=== PATIENT | female | born 1935 | race African-American/Black ===

== ENCOUNTER 2018-04-05 18:29 | Inpatient (IN) | payer OTHER, BC ==
--- NOTE | 2018-04-05 18:46 | PDOC ---
Rapid Medical Evaluation Medical Evaluation: I have performed a brief in-person evaluation of this patient. The patient presents with a chief complaint of: Hx of HTN; c/o chest congestion , intermittent low grade fever, cough since before Thanksgiving, but states symptoms not getting better. Patient had CT chest done around 1 week ago, but states did not get notified of results. States lost 15 pounds over around 1 month (from 155 to 140) Pertinent physical exam findings: In NAD, lungs CTA B/L I have ordered the following: Labs, CXR, EKG The patient will proceed to the ED for further evaluation. 04/05/18 18:41
--- NOTE | 2018-04-05 19:14 | PDOC ---
History of Present Illness - General Chief Complaint: Shortness of Breath Stated Complaint: PCP SENT/CHEST PAIN Time Seen by Provider: 04/05/18 19:07 - History of Present Illness Initial Comments: 04/05/18 19:46 The patient is an 82 year old female with a history of HTN who presents for evaluation of shortness of breath and cough. The patient reports a 1 month history of worsening shortness of breath with an associated non-productive cough. She states that she has been having a low grade fever and intermittent night sweats as well as a 15 pound weight loss. The patient had a recent chest ct at an OSH 1 week ago, but never received the results. She was being evaluated by her fluid jet cutter operator Dr. Vaughan who sent the patient in for admission and further work up given her persistent symptoms. She otherwise denies chills , chest pain, nausea, vomiting, abdominal pain, or changes with urination or bowel movements. Past History - Past Medical History Allergies/Adverse Reactions: Allergies Allergy/AdvReac Type Severity Reaction Status Date / Time Penicillins Allergy Verified 04/05/18 18:47 COPD: No HTN: Yes - Suicide/Smoking/Psychosocial Hx Smoking History: Never smoked Information on smoking cessation initiated: No Hx Alcohol Use: Yes (occasional) Drug/Substance Use Hx: No Review of Systems - Review of Systems Comments:: 04/05/18 20:41 Constitutional: Fever. Night sweats. No chills, fatigue, malaise HEENT: No Rhinorrhea, nasal congestion, visual changes Cardiovascular: No chest pain, syncope, palpitations, lightheadedness Respiratory: Cough, SOB. No Hemoptysis, Gastrointestinal: No Abdominal pain, Nausea, Vomiting, Constipation, Diarrhea, Melena Genitourinary: No Dysuria, Frequency, Urgency, Hesitancy, Hematuria, Flank pain Musculoskeletal: No Myalgia, arthralgia Skin: No rashes, itching, bruising, pallor Neurologic: No Headache, Dizziness, Numbness, Weakness, or Tingling Psychiatric: No Hallucinations. No SI or HI *Physical Exam - Vital Signs Last Vital Signs Temp Pulse Resp BP Pulse Ox 99.2 F 94 H 19 121/69 96 04/05/18 18:44 04/05/18 18:44 04/05/18 18:44 04/05/18 18:44 04/05/18 18:44 - Physical Exam Comments: 04/05/18 20:45 General Appearance: Nourished. No Apparent Distress HEENT: No Pharyngeal Erythema, Tonsillar Exudate, Tonsillar Erythema Neck: No Cervical Lymphadenopathy Respiratory/Chest: Lungs Clear, Mild scant wheezing and rhonchi auscultated on exam. No Crackles, Rales, Cardiovascular: Regular Rhythm, Regular Rate. No Murmur, Gallops, Rubs Gastrointestinal/Abdominal: Normal Bowel Sounds, Soft. No Guarding, Rebound, Tenderness Musculoskeletal: No CVA Tenderness Extremity: Normal Capillary Refill Integumentary: Normal Color, Dry, Warm Neurologic: Fully Oriented, Alert, Normal Mood/Affect, Normal Response, Moderate Sedation - Procedure Monitoring Vital Signs: Procedure Monitoring Vital Signs Temperature 99.2 F 04/05/18 18:44 Pulse Rate 94 H 04/05/18 18:44 Respiratory Rate 19 04/05/18 18:44 Blood Pressure 121/69 04/05/18 18:44 O2 Sat by Pulse Oximetry (%) 96 04/05/18 18:44 Heart Score/ECG Review #1 ECG reviewed & interpreted by me at: 20:46 General ECG Interpretation: Sinus Rhythm, Normal Rate, Normal Intervals, No acute ischemic changes ED Treatment Course - LABORATORY CBC & Chemistry Diagram: 04/05/18 19:15 04/05/18 19:15 Medical Decision Making - Medical Decision Making 04/05/18 20:46 The patient is an 82 year old female with a history of HTN who presents for evaluation of shortness of breath and cough. Differential includes but is not limited to: COPD, CHF, Pneumonia, Neoplasm, Pulmonary Fibrosis, Infectious, Metabolic Derangement. Given the patient's history and physical exam, we will obtain a cbc, cmp, troponin, bnp, ekg, chest plain film, chest CT to evaluate further. We will continue to monitor and reassess while here in the ED. 04/06/18 00:11 CBC demonstrates an elevated wbc to 16 and hgb of 9.1. CMP demonstrates an elevated creatinine. Chest CT demonstrates multiple opacities in the upper lobes concerning for inflammatory process vs infectious as read by our radiologist. We discussed the case with Dr. Vaughan with pulmonology who is aware of the case. We discussed the case with the admitting team who accepted the patient for admission. *DC/Admit/Observation/Transfer Diagnosis at time of Disposition: Shortness of breath - Discharge Dispostion Condition at time of disposition: Stable Decision to Admit order: Yes - Referrals - Patient Instructions - Post Discharge Activity
--- NOTE | 2018-04-05 19:40 | PDOC ---
Attending Attestation - [facility] HPI: 04/05/18 20:09 The patient is a 82 year old female, with a significant past medical history of hypertension, who presents to the emergency department with one month complaint of intermittent productive cough, shortness of breath, exertional dyspnea, subjective fevers and chills, decreased appetite, and a 10-15 lbs weight loss. She states she had a CT scan done about a week ago, however, has not received any results. The patient follows with corporate tax preparer, Dr. Vaughan, who advised her to come to the ED for further evaluation. The patient denies chest pain, headache and dizziness. The patient denies nausea , vomit, diarrhea and constipation. The patient denies dysuria, frequency, urgency and hematuria. Allergies: penicillins Past surgical history: none reported Social history: Denies toxic habits PCP - Dr. Zapata Flag Signaler: Dr. Vaughan - Medical Decision Making 04/05/18 20:10 Documentation prepared by Celestina Camp, acting as medical receptionist for Harmeet Sharp MD, --------- EXAM#: TYPE/EXAM: RESULT: [id number] CT/CHEST CT WITHOUT CONTRAST Chest CT without contrast Impression: Multifocal bilateral upper and lower lung field opacities are seen very likely on the basis of inflammatory/infectious infiltrates. Correlate clinically and with follow-up CT to document resolution. Mild bilateral lower lobe and minimal to mild bilateral upper lobe bronchiectasis with associated mild bronchial wall thickening. There is possible soft tissue prominence within the right supraclavicular region medially. Evaluation is limited on this noncontrast study. Correlate clinically. If there is clinical suspicion in this regard additional evaluation utilizing MRI or contrast enhanced CT may be performed. Reported By: Scot Maurice MD 04/05/18 [id number] <Celestina Camp - Last Filed: 04/05/18 22:26> - Resident Resident Name: Andrey Wheat - ED Attending Attestation I have performed the following: I have examined & evaluated the patient, The case was reviewed & discussed with the resident, I agree w/resident's findings & plan, Exceptions are as noted - Physicial Exam PE: 04/05/18 20:21 GENERAL: Well-appearing, well-nourished. No apparent distress. HEENT: Normocephalic, atraumatic. PERRL, EOM intact. CARDIOVASCULAR: Normal S1, S2. Regular rate and rhythm. PULMONARY: Diffuse, faint rhonci that cleared with cough, otherwise lungs ctab, normal wob ABDOMEN: Soft, non-distended, non-tender. EXTREMITIES: Normal ROM in all four extremities. No gross deformities. SKIN: Warm, dry. No rash NEUROLOGICAL: No focal neurological deficits. - Medical Decision Making 04/05/18 19:[address] Vaughan who has been managing the patient's complaints for several weeks. He sent the patient in with the plan of admission for further care and workup 04/05/18 20:22 Well appearing, no distress, occasional dry cough during interview, speaking in full sentences w/o issue. Patient states that she has had a noticeable decrease in her exercise tolerance since symptom onset, no sick contacts, no recent travels Concern for infectious etiology, mass, CA, primary vs met, PE is possible f/u labs, will need imaging Final details of dispo pending workup 04/06/18 00:56 Will be admitted as per original plan to medical floor <Harmeet Sharp - Last Filed: 04/06/18 00:56>
[2018-04-05 20:14] LABS: ANION GAP 8 MMOL/L (8-16); BLOOD UREA NITROGEN 32 mg/dL (7-18); CALCIUM 8.4 mg/dL (8.5-10.1); CHLORIDE 95 mmol/L (98-107); CO2 28 mmol/L (21-32); CREATININE 2.3 mg/dL (0.55-1.3); GLUCOSE,RANDOM 110 mg/dL (74-106); N-TERMINAL BNP 324.1 pg/ml (5-450); POTASSIUM 3.6 mmol/L (3.5-5.1); SODIUM 131 mmol/L (136-145)
[2018-04-05 20:15] LABS: VENOUS PC02 36.6 mmHg (38-52); VENOUS PH 7.47 (7.32-7.42); VENOUS PO2 52.9 mmHg (28-48)
[2018-04-05 20:18] LABS: BASO % 0.8 % (0-2.0); EOS % 4.1 % (0-4.5); HEMATOCRIT 26.1 % (32.4-45.2); HEMOGLOBIN 9.1 GM/dL (10.7-15.3); LYMPH % 9.9 % (8-40); MCH 29.9 pg (25.7-33.7); MCHC 34.9 g/dl (32.0-36.0); MEAN CELL VOLUME 85.9 fl (80-96); MEAN PLT VOLUME 8.1 fl (7.5-11.1); MONO % 6.5 % (3.8-10.2); NEUT % 78.7 % (42.8-82.8); PLATELET COUNT 580 K/MM3 (134-434); RBC 3.04 M/mm3 (3.60-5.2); RDW 13.4 % (11.6-15.6); WHITE BLOOD COUNT 16.3 K/mm3 (4.0-10.0)
[2018-04-05] MEDS ORDERED: DOCUSATE SODIUM 100 MG CAPSULE (FP) PO PRN (22:22)
[2018-04-05] MEDS: D5-1/2NS+20 MEQ KCL - 20 MEQ/1,000 ML INFUS.BAG IV SCH (23:01)
--- NOTE | 2018-04-05 23:10 | HP ---
Admitting History and Physical - Admission History of Present Illness: The patient is an 82 year old female with a history of HTN who presents for evaluation of shortness of breath and cough. The patient reports a 1 month history of worsening shortness of breath with an associated non-productive cough. She states that she has been having a low grade fever and intermittent night sweats as well as a 15 pound weight loss. The patient had a recent chest ct at an OSH 1 week ago, but never received the results. She was being evaluated by her staff submarine warfare officer Dr. Vaughan who sent the patient in for admission and further work up given her persistent symptoms. She otherwise denies chills , chest pain, nausea, vomiting, abdominal pain, or changes with urination or bowel movements. History Source: Patient, Medical Record - Past Medical History Cardiovascular: Yes: HTN Pulmonary: Yes: COPD - Smoking History Smoking history: Never smoked - Alcohol/Substance Use Hx Alcohol Use: Yes (occasional) - Social History ADL: Independent History of Recent Travel: No Home Medications - Allergies Allergies/Adverse Reactions: Allergies Allergy/AdvReac Type Severity Reaction Status Date / Time Penicillins Allergy Verified 04/05/18 18:47 Review of Systems - Review of Systems Constitutional: reports: Fever, Loss of Appetite, Night Sweats, Unintentional Wgt. Loss. denies: Chills Eyes: reports: No Symptoms HENT: reports: No Symptoms Neck: reports: No Symptoms Cardiovascular: reports: Shortness of Breath. denies: Chest Pain, Palpitations Respiratory: reports: Exercise Intolerance, SOB, SOB on Exertion. denies: Hemoptysis, Orthopnea Gastrointestinal: reports: No Symptoms Genitourinary: reports: No Symptoms Breasts: reports: No Symptoms Reported Musculoskeletal: reports: No Symptoms Integumentary: reports: No Symptoms Neurological: reports: No Symptoms Endocrine: reports: No Symptoms Hematology/Lymphatic: reports: No Symptoms Psychiatric: reports: No Symptoms Physical Examination Vital Signs: Vital Signs Temperature 99.2 F 04/05/18 18:44 Pulse Rate 86 04/05/18 21:55 Respiratory Rate 22 H 04/05/18 21:55 Blood Pressure 119/69 04/05/18 21:55 O2 Sat by Pulse Oximetry (%) 98 04/05/18 21:55 Constitutional: Yes: No Distress Eyes: Yes: Conjunctiva Clear, EOM Intact HENT: Yes: Atraumatic Neck: Yes: Supple, Trachea Midline Cardiovascular: Yes: Regular Rate and Rhythm Respiratory: Yes: Regular, CTA Bilaterally, Diminished, SOB. No: Rhonchi, Wheezes Gastrointestinal: Yes: Normal Bowel Sounds ...Rectal Exam: Yes: Deferred Renal/: Yes: WNL Breast(s): Yes: WNL Musculoskeletal: Yes: WNL Extremities: Yes: WNL Edema: No Peripheral Pulses WNL: Yes Integumentary: Yes: WNL Neurological: Yes: Alert, Oriented Psychiatric: Yes: Alert, Oriented Labs: CBC, BMP 04/05/18 19:15 04/05/18 19:15 Problem List - Problems (1) COPD (chronic obstructive pulmonary disease) Code(s): J44.9 - CHRONIC OBSTRUCTIVE PULMONARY DISEASE, UNSPECIFIED (2) Shortness of breath (3) HTN (hypertension) Code(s): I10 - ESSENTIAL (PRIMARY) HYPERTENSION (4) Weight decreased Code(s): R63.4 - ABNORMAL WEIGHT LOSS (5) Anemia Code(s): D64.9 - ANEMIA, UNSPECIFIED (6) Chronic kidney disease Code(s): N18.9 - CHRONIC KIDNEY DISEASE, UNSPECIFIED
[2018-04-06] MEDS ORDERED: methylPREDNISolone NA SUCC 40 MG/1 ML VIAL ONE (02:12)
[2018-04-06] MEDS: methylPREDNISolone NA SUCC 40 MG/1 ML VIAL IVPUSH SCH ×3 (02:12→17:59)
[2018-04-06 07:48] LABS: ALBUMIN 1.9 g/dl (3.4-5.0); ALK PHOS 65 U/L (45-117); ANION GAP 4 MMOL/L (8-16); BILIRUBIN,TOTAL 0.6 mg/dL (0.2-1); BLOOD UREA NITROGEN 26 mg/dL (7-18); CALCIUM 8.3 mg/dL (8.5-10.1); CHLORIDE 98 mmol/L (98-107); CO2 31 mmol/L (21-32); CREATININE 2.1 mg/dL (0.55-1.3); GLUCOSE,RANDOM 156 mg/dL (74-106); MAGNESIUM 2.5 mg/dL (1.8-2.4); SGOT/AST 17 U/L (15-37); SGPT/ALT 16 U/L (13-61); SODIUM 134 mmol/L (136-145); TOT PROT 6.9 g/dl (6.4-8.2)
[2018-04-06] MEDS: ALBUTEROL SO4 2.5/IPRATROPIUM 0.5 INH SOL 3 ML VIAL.NEB. NEB SCH ×4 (07:49→19:40)
[2018-04-06 07:58] LABS: HEMATOCRIT 24.2 % (32.4-45.2); HEMOGLOBIN 8.5 GM/dL (10.7-15.3); MCH 30.3 pg (25.7-33.7); MEAN CELL VOLUME 86.7 fl (80-96); MEAN PLT VOLUME 7.6 fl (7.5-11.1); PLATELET COUNT 524 K/MM3 (134-434); RBC 2.79 M/mm3 (3.60-5.2); RDW 13.4 % (11.6-15.6); WHITE BLOOD COUNT 12.9 K/mm3 (4.0-10.0)
[2018-04-06] MEDS ORDERED: PT OWN MED DRAWER 7, Y5N ONE ×2 (10:05→17:48)
[2018-04-06] MEDS: PANTOPRAZOLE 40 MG TABLET (FP) PO SCH (10:06)
--- NOTE | 2018-04-06 10:18 | PN ---
Progress Note (short form) - Note Progress Note: 82 y/o female admitted for cough/ VERA. No SOB noted at present. However, cough continues. Vital Signs Period Temp Pulse Resp BP Sys/Devries Pulse Ox Last 24 Hr 98.0 F-99.2 F 76-94 18-22 105-134/57-74 96-100 CBC, BMP 04/06/18 06:30 04/06/18 06:30 HEENT- Normocephalic Neck-Supple Lungs- RT lower diminished Upper lobes and lt lower lobe clear Heart- S1/S2 Abd- Soft, NT Ext- No LE edema Active Medications Albuterol/Ipratropium (Duoneb -) 1 amp NEB RQID LALO Last Admin: 04/06/18 07:49 Dose: 1 amp Docusate Sodium (Colace -) 100 mg PO Q12H PRN PRN Reason: CONSTIPATION Potassium Chloride/Dextrose/Sod Cl (D5-1/2ns+20 Meq Kcl -) 20 meq in 1,000 mls @ 75 mls/hr IV ASDIR [facility] Last Admin: 04/05/18 23:01 Dose: 75 mls/hr Methylprednisolone Sodium Succinate (Solu-Medrol -) 80 mg IVPUSH Q8H-IV LALO Last Admin: 04/06/18 10:06 Dose: 80 mg Mometasone Furoate (Asmanex 110mcg -) 1 puff IH HS LALO Pantoprazole Sodium (Protonix -) 40 mg PO DAILY [facility] Last Admin: 04/06/18 10:06 Dose: 40 mg #COPD Pulm consult appreciated Cont IV steroids Inhaled Bronchodilators O2 therapy Flex Bronchoscopy CT scan showed bronchiectasis Pending ID consult #HTN BP stable #Anemia Trend H & H #CKD Trend BUN and Creatinine Problem List - Problems (1) COPD (chronic obstructive pulmonary disease) Code(s): J44.9 - CHRONIC OBSTRUCTIVE PULMONARY DISEASE, UNSPECIFIED (2) Shortness of breath (3) HTN (hypertension) Code(s): I10 - ESSENTIAL (PRIMARY) HYPERTENSION (4) Weight decreased Code(s): R63.4 - ABNORMAL WEIGHT LOSS (5) Anemia Code(s): D64.9 - ANEMIA, UNSPECIFIED (6) Chronic kidney disease Code(s): N18.9 - CHRONIC KIDNEY DISEASE, UNSPECIFIED
--- NOTE | 2018-04-06 10:40 | PN ---
Progress Note (short form) - Note Progress Note: PULMONARY CONSULTATION DICTATED 04/06/18 IMP BILATERAL INFILTRATES ? INFECTIOUS,?INFLAMMATORY,?MALIGNANCY NANDINI ANEMIA PLAN ABX CULTURES STEROIDS INHALED BRONCHODILATORS IVF MONITOR LYTES,RENALFUNCTION,CBC O2 FLEX BRONCHOSCOPY SEROLOGY DR CORNELL Problem List - Problems (1) Acute kidney injury Code(s): N17.9 - ACUTE KIDNEY FAILURE, UNSPECIFIED (2) Anemia Code(s): D64.9 - ANEMIA, UNSPECIFIED (3) COPD (chronic obstructive pulmonary disease) Code(s): J44.9 - CHRONIC OBSTRUCTIVE PULMONARY DISEASE, UNSPECIFIED (4) HTN (hypertension) Code(s): I10 - ESSENTIAL (PRIMARY) HYPERTENSION (5) Weight decreased Code(s): R63.4 - ABNORMAL WEIGHT LOSS
--- NOTE | 2018-04-06 11:29 | CONS ---
PULMONARY CONSULTATION DATE OF CONSULTATION: 04/06/2018 REFERRING PHYSICIAN: Crystal Nair MD HISTORY OF PRESENT ILLNESS: The patient is an 82-year-old, black female, past medical history of hypertension, remote history of smoking years ago, admitted to [facility], with complaint of increasing shortness of breath and cough. Patient states in January, she started developing a cough that was nonproductive. She went to see me a couple weeks ago with the above complaint. She had a CAT scan of the chest as an outpatient, which revealed some ground- glass opacities. Patient states that she had been having intermittent fever since March, low-grade temperatures. She also complained of weight loss and occasional night sweats when she takes aspirin. Denies any hemoptysis. Denies any chest pains or palpitations. She called my office yesterday, at which time I advised her to go to the emergency room. Chest x-ray and CT on admission revealed bilateral ground-glass infiltrates, upper and lower lobe opacities, likely inflammatory and/or infectious. Patient denies any recent travel. There is no history of occupational exposure to chemicals or fumes. On admission, the patient was placed on IV steroids. PAST MEDICAL HISTORY: Again, includes hypertension. 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 History of tobacco; quit years ago. REVIEW OF SYSTEMS: Positive cough. No orthopnea. No PND. Positive mild dyspnea on exertion. No chest pain. No palpitations. Positive weight loss. Positive night sweats. No hemoptysis. No abdominal pain. CURRENT MEDICATIONS: Include Solu-Medrol, Asmanex, Protonix, sodium chloride. PHYSICAL EXAMINATION: General: The patient is a well-developed, well-nourished female, awake, alert, in no acute distress. Vital Signs: She is currently afebrile, blood pressure is 106/59, respiratory rate is 20, O2 saturation is 97%. HEENT: Exam is normocephalic, atraumatic. Neck: Supple. Heart: Regular S1 and S2. Chest: Clear. Abdomen: Soft. Bowel sounds present. Extremities: No cyanosis, edema. LABORATORIES: WBC is 12.9, hemoglobin 8.5, hematocrit 24.2, with a platelet count of 524,000. Chemistry: BUN 26, creatinine 2.1, sodium is 134. CRP is 16.5. BNP is 324. IMAGING: Chest CT as noted. IMPRESSION: 1. Bilateral ground-glass infiltrates, fever, weight loss, night sweats. Rule out possible infectious etiology. Rule out possible atypical tuberculosis. Rule out possible inflammatory, possible vascularity. Rule out malignancy. 2. Hypertension. PLAN: IV steroids. IV antibiotic therapy. Consider bronchoscopy. Obtain serology. Inhaled bronchodilators. Obtain cultures. Gale [id number] MTDD
--- NOTE | 2018-04-06 12:03 | EKG ---
Test Reason : Blood Pressure : / mmHG Vent. Rate : 090 BPM Atrial Rate : 090 BPM P-R Int : 154 ms QRS Dur : 076 ms QT Int : 358 ms P-R-T Axes : 049 045 046 degrees QTc Int : 437 ms NORMAL SINUS RHYTHM NORMAL ECG WHEN COMPARED WITH ECG OF 30-MAR-2011 10:30, NO SIGNIFICANT CHANGE WAS FOUND Confirmed by MONTSERRAT BALTAZAR MD ([id number]) on 04/06/2018 12:03:47 PM Referred By: Confirmed By:MONTSERRAT BALTAZAR MD
[2018-04-06 12:36] LABS: INR 1.13 (0.83-1.09); PROTHROMBIN TIME (PATIENT) 13.4 SEC (9.7-13.0)
[2018-04-06] MEDS: D5-1/2NS+20 MEQ KCL - 20 MEQ/1,000 ML INFUS.BAG IV SCH (14:56)
--- NOTE | 2018-04-06 15:28 | CON.CARD ---
Consult Consult Specialty:: Cardiology Referred by:: Korey Reason for Consultation:: shortness of breath - History of Present Illness Chief Complaint: shortness of breath History of Present Illness: 82F h/o HTN p/w shortness of breath, cough. Has had dyspnea associated with nonproductive cough for one month. Also has had a low grade fever, intermittent night sweats, 15 lb weight loss. no chest pain, dizziness, lightheadedness. Occasional dyspnea if walking longer distances or two flights of stairs. In the ER noted to have leukocytosis, elevated Cr. Trop neg x 1, BNP 324 - Past Medical History Cardio/Vascular: Yes: HTN Pulmonary: Yes: COPD - Alcohol/Substance Use Hx Alcohol Use: Yes (occasional) - Smoking History Smoking history: Never smoked Home Medications - Allergies Allergies/Adverse Reactions: Allergies Allergy/AdvReac Type Severity Reaction Status Date / Time Penicillins Allergy Verified 04/05/18 18:47 Family Disease History - Family Disease History Family History: Unremarkable Review of Systems - Review of Systems Constitutional: reports: No Symptoms Eyes: reports: No Symptoms HENT: reports: No Symptoms Neck: reports: No Symptoms Cardiovascular: reports: No Symptoms Respiratory: reports: Cough, SOB Gastrointestinal: reports: No Symptoms Genitourinary: reports: No Symptoms Musculoskeletal: reports: No Symptoms Integumentary: reports: No Symptoms Neurological: reports: No Symptoms Endocrine: reports: No Symptoms Hematology/Lymphatic: reports: No Symptoms Psychiatric: reports: No Symptoms Vital Signs: Vital Signs Temperature 98.3 F 04/06/18 09:00 Pulse Rate 79 04/06/18 09:00 Respiratory Rate 20 04/06/18 09:00 Blood Pressure 106/59 L 04/06/18 09:00 O2 Sat by Pulse Oximetry (%) 95 04/06/18 09:00 - Other Data Labs, Other Data: CBC, BMP 04/06/18 06:30 04/06/18 06:30 INR, PTT INR 1.13 (0.83-1.09) H 04/06/18 11:30 Troponin, BNP 04/05/18 19:15 Troponin I < 0.02 B-Natriuretic Peptide 324.1 Troponin, BNP 04/05/18 19:15 Troponin I < 0.02 B-Natriuretic Peptide 324.1 Assessment/Plan EKG: sinus rhythm, no ischemic changes CT chest multifocal jean-pierre upper and lower lung opacities likely infectious/ inflammatory infiltrates. mild jean-pierre lower lobe and min to mild jean-pierre upper lobe bronchiectasis with associated mild bronchial wall thickening 82F h/o HTN, COPD p/w shortness of breath, cough shortness of breath, cough - trop neg x 1, BNP not diagnostic of HF - less likely cardiac etiology - pulm and ID following, infectious workup, planned bronch COPD - manage per pulm HTN - stable BP not on meds, monitor NANDINI - unclear baseline - nephrology consulted
--- NOTE | 2018-04-06 15:30 | CONSULT ---
Consult Consult Specialty:: Nephrology Reason for Consultation:: NANDINI - History of Present Illness Chief Complaint: cough History of Present Illness: Pt is an 82 year old female with pmhx of HTN who preents for evaluation of shortness of breath and cough. She says that she has had this for about a month. She also complains of about a 10 pound weight loss. She says she has had poor appetite for the last month. I was called to evaluate her for NANDINI. She denies dysuria or hematuria. She denies chest pain or palpitations. She denies nsaid use. She denies history of CKD. - History Source History Provided By: Patient - Past Medical History Cardio/Vascular: Yes: HTN Pulmonary: Yes: COPD - Alcohol/Substance Use Hx Alcohol Use: Yes (occasional) - Smoking History Smoking history: Never smoked Home Medications - Allergies Allergies/Adverse Reactions: Allergies Allergy/AdvReac Type Severity Reaction Status Date / Time Penicillins Allergy Verified 04/05/18 18:47 Family Disease History - Family Disease History Family History: Denies Review of Systems - Review of Systems Constitutional: reports: Malaise Eyes: reports: No Symptoms HENT: reports: No Symptoms Neck: reports: No Symptoms Cardiovascular: reports: Shortness of Breath. denies: Edema Respiratory: reports: Cough, SOB, SOB on Exertion. denies: Hemoptysis Gastrointestinal: reports: No Symptoms Genitourinary: reports: No Symptoms Musculoskeletal: reports: No Symptoms Integumentary: reports: No Symptoms Neurological: reports: No Symptoms Endocrine: reports: No Symptoms Hematology/Lymphatic: reports: No Symptoms Psychiatric: reports: No Symptoms Physical Exam Vital Signs: Vital Signs Temperature 98.3 F 04/06/18 09:00 Pulse Rate 79 04/06/18 09:00 Respiratory Rate 20 04/06/18 09:00 Blood Pressure 106/59 L 04/06/18 09:00 O2 Sat by Pulse Oximetry (%) 95 04/06/18 09:00 Constitutional: Yes: Calm Eyes: Yes: Conjunctiva Clear HENT: Yes: Atraumatic Neck: Yes: Supple Cardiovascular: Yes: S1, S2 Respiratory: Yes: CTA Bilaterally Gastrointestinal: Yes: Soft Renal/: Yes: WNL Musculoskeletal: Yes: WNL Edema: No Neurological: Yes: Oriented Psychiatric: Yes: Oriented Labs: CBC, BMP 04/06/18 06:30 04/06/18 06:30 Laboratory Tests 04/05/18 04/05/18 04/06/18 19:15 19:15 06:30 WBC 16.3 H 12.9 H Hgb 9.1 L 8.5 L Sodium 131 L Potassium 3.6 BUN 32 H Creatinine 2.3 H Magnesium Albumin 04/06/18 06:30 WBC Hgb Sodium 134 L Potassium 4.0 BUN 26 H Creatinine 2.1 H Magnesium 2.5 H Albumin 1.9 L Imaging - Results Chest X-ray: Report Reviewed Assessment/Plan Current Medications Generic Name Dose Route Start Last Admin Trade Name Freq PRN Reason Stop Dose Admin Albuterol/Ipratropium 1 amp 04/06/18 08:00 04/06/18 11:03 Duoneb - NEB 1 amp RQID LALO Administration Docusate Sodium 100 mg 04/05/18 22:22 Colace - PO Q12H PRN CONSTIPATION Potassium Chloride/Dextrose/Sod Cl 20 meq in 1,000 mls @ 75 mls/hr 04/05/18 22 :45 04/06/18 14:56 D5-1/2ns+20 Meq Kcl - IV 75 mls/hr ASDIR LALO Administration Methylprednisolone Sodium Succinate 80 mg 04/06/18 02:00 04/06/18 10:06 Solu-Medrol - IVPUSH 80 mg Q8H-IV LALO Administration Mometasone Furoate 1 puff 04/06/18 22:00 Asmanex 110mcg - IH HS LALO Pantoprazole Sodium 40 mg 04/06/18 10:00 04/06/18 10:06 Protonix - PO 40 mg DAILY LALO Administration Impression 1. NANDINI 2. lung lesions 3. weight loss 4. cough 5. HTN Plan - chance fluids to ns - check renal ultrasound - check ua - check electrolytes and modeling instructor to calc fena - repeat labs in am - pulmonary follow up - change colace to a standing order
[2018-04-06] MEDS ORDERED: SODIUM CHLORIDE 1,000 ML IV SCH (15:45)
[2018-04-06] MEDS ORDERED: DOCUSATE SODIUM 100 MG CAPSULE (FP) PO SCH (15:45)
--- NOTE | 2018-04-06 16:17 | PN ---
Progress Note (short form) - Note Progress Note: ID Consult dictated ? Bilateral pneumonitis ? etiology Obtain BC, ESR,CRP Sputum c/s Legionella/ Pneumococcal ag Quantiferon Cold agglutinins Viral panel HIV test (pt consents) Empirc zithromax/ ceftriaxone For bronchoscopy
--- NOTE | 2018-04-06 17:10 | CONS ---
DATE OF CONSULTATION: DATE OF DICTATION: 04/06/2018 INFECTIOUS DISEASE CONSULTATION HISTORY OF PRESENT ILLNESS: The patient is an 82-year-old female who is evaluated for bilateral pneumonitis. The patient has had chronic cough dating back approximately 2 months. She had been seen as an outpatient and had subsequently developed worsening cough associated with low-grade fevers, chest congestion, night sweats, and a 15-pound weight loss. She denied any chest pain or hemoptysis. A CAT scan was performed that showed patchy ground glass infiltrates bilaterally. At the present time, she is awake and appears comfortable on room air. The patient lives at home with her family. She denies any ill contacts. She is a former smoker. No recent travel. She did travel to [place] approximately 5 years ago. No travel to [place] or the [place], [place], or [place]. She is . She reports her is in good health. She denies risk factors for HIV, although her status is not known. No pets at home. 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 ALLERGIES: PENICILLIN. No history of anaphylaxis. MEDICATION: Include DuoNeb, Colace, Protonix. SOCIAL HISTORY: As per HPI. SYSTEMS REVIEW: Neurologic: No loss of consciousness, seizure activity, focal weakness. Cardiac: Negative for chest pain or palpitations. Respiratory: As per HPI. Gastrointestinal: Negative vomiting or diarrhea. Genitourinary: Negative for urinary tract infection. LABORATORY DATA: White count on admission 16.3 with 78% neutrophils, 9% lymphocytes, 6% monocytes. Hematocrit 26.1, platelet count 580. BUN 26, creatinine 2.1. Liver enzymes normal. C-reactive protein 16.5. Sedimentation rate 111. PHYSICAL EXAMINATION: General: On exam, she is awake and alert, she is hard of hearing, she is supine in bed, she is in no acute distress at rest. Vital signs: Temperature 98.3, blood pressure 106/56, pulse 79 regular, respirations 20 per minute. HEENT: Sclerae anicteric. Oropharynx negative. Neck: Supple. No palpable nodes. Cardiovascular: Heart sounds S1, S2. Lungs: Clear bilaterally, no rhonchi, rales, or wheezing. Abdomen: Soft. No palpable liver or spleen. Extremities: Negative for edema. Negative for Homans sign. IMPRESSION: Bilateral pneumonitis, unclear etiology. Considerations include atypical pneumonia, community-acquired pneumonia, viral pneumonia, and noninfectious entities. Obtain blood cultures, sputum cultures, urine legionella and pneumococcal antigens, Quantiferon, respiratory viral panel, P-ANCA and C-ANCA in light of lung and renal involvement. HIV testing. Patient gives verbal consent. Patient is for bronchoscopy tomorrow with specimen for routine culture and sensitivity, AFB and fungal culture as well as cytology. Will follow. Thank you for the kind referral. RYAN URIBE M.D. [id number]
[2018-04-06] MEDS ORDERED: DEXTROSE 5%-WATER 100 ML IVPB ONE (17:48)
[2018-04-06] MEDS: CEFTRIAXONE 2 GM in DEXTROSE 5%-WATER 100 ML IVPB SCH (17:58)
[2018-04-06] MEDS: AZITHROMYCIN IVPB 500 MG/250 ML BAG IVPB SCH (18:32)
[2018-04-06 19:05] LABS: URINE APPEARANCE SLCLOUDY; URINE BILIRUBIN NEGATIVE (<2.0 mg/dL); URINE COLOR YELLOW; URINE GLUCOSE (UA) NEGATIVE (NEGATIVE); URINE KETONE NEGATIVE (NEGATIVE); URINE LEUK ESTERASE NEGATIVE (NEGATIVE); URINE NITRITE NEGATIVE (NEGATIVE); URINE PROTEIN 2+ (NEGATIVE); URINE UROBILINOGEN NEGATIVE mg/dL (0.2-1.0)
[2018-04-06 19:13] LABS: EPI CELLS RARE /HPF (FEW); URINE HYALINE CAST 11 /lpf; URINE MUCUS RARE
[2018-04-06 19:26] LABS: URINE APPEARANCE CLEAR; URINE BILIRUBIN NEGATIVE (<2.0 mg/dL); URINE COLOR STRAW; URINE GLUCOSE (UA) NEGATIVE (NEGATIVE); URINE KETONE NEGATIVE (NEGATIVE); URINE LEUK ESTERASE NEGATIVE (NEGATIVE); URINE NITRITE NEGATIVE (NEGATIVE); URINE PROTEIN 1+ (NEGATIVE); URINE UROBILINOGEN NEGATIVE mg/dL (0.2-1.0)
[2018-04-06 19:38] LABS: EPI CELLS RARE /HPF (FEW); URINE BACTERIA RARE /hpf (NONE SEEN); URINE MUCUS RARE
[2018-04-06] MEDS ORDERED: MOMETASONE FUROATE 110 MCG/IH INHALER IH SCH (22:00)
[2018-04-07] MEDS: methylPREDNISolone NA SUCC 40 MG/1 ML VIAL IVPUSH SCH ×3 (02:17→18:27)
[2018-04-07] MEDS ORDERED: DOCUSATE SODIUM 100 MG CAPSULE (FP) PO SCH (06:00)
[2018-04-07] MEDS: ALBUTEROL SO4 2.5/IPRATROPIUM 0.5 INH SOL 3 ML VIAL.NEB. NEB SCH ×4 (07:14→20:17)
[2018-04-07 08:16] LABS: BASO % 0.2 % (0-2.0); HEMATOCRIT 26.7 % (32.4-45.2); LYMPH % 7.2 % (8-40); MCHC 33.6 g/dl (32.0-36.0); MEAN CELL VOLUME 86.4 fl (80-96); MEAN PLT VOLUME 7.6 fl (7.5-11.1); MONO % 2.2 % (3.8-10.2); NEUT % 90.4 % (42.8-82.8); PLATELET COUNT 626 K/MM3 (134-434); RBC 3.09 M/mm3 (3.60-5.2); RDW 13.3 % (11.6-15.6); WHITE BLOOD COUNT 19.4 K/mm3 (4.0-10.0)
[2018-04-07 08:46] LABS: ALBUMIN 2.2 g/dl (3.4-5.0); ALK PHOS 68 U/L (45-117); ANION GAP 11 MMOL/L (8-16); BILIRUBIN,TOTAL 0.4 mg/dL (0.2-1); BLOOD UREA NITROGEN 35 mg/dL (7-18); CALCIUM 8.5 mg/dL (8.5-10.1); CHLORIDE 96 mmol/L (98-107); CO2 26 mmol/L (21-32); CREATININE 2.3 mg/dL (0.55-1.3); GLUCOSE,RANDOM 136 mg/dL (74-106); SGOT/AST 20 U/L (15-37); SGPT/ALT 21 U/L (13-61); SODIUM 133 mmol/L (136-145); TOT PROT 7.9 g/dl (6.4-8.2)
[2018-04-07] MEDS ORDERED: DEXTROSE 5%-WATER 100 ML IVPB ONE (10:12)
--- NOTE | 2018-04-07 11:29 | PN ---
Progress Note (short form) - Note Progress Note: 82 y/o female found lying in bed. No c/o of pain but states that cough continues. Vital Signs Period Temp Pulse Resp BP Sys/Devries Pulse Ox Last 24 Hr 97.5 F-98.2 F 77-82 18-20 99-132/58-72 96 CBC, BMP 04/07/18 07:30 04/07/18 07:30 HEENT- Normocephalic Neck- Supple Lungs- CTAB Heart- S1/S2 Abd- Soft, Nt Ext- No LE edema Active Medications Albuterol/Ipratropium (Duoneb -) 1 amp NEB RQID [facility] Last Admin: 04/07/18 07:14 Dose: 1 amp Docusate Sodium (Colace -) 100 mg PO BID@0600,1800 [facility] Last Admin: 04/07/18 05:20 Dose: Not Given Sodium Chloride (Normal Saline -) 1,000 mls @ 75 mls/hr IV ASDIR [facility] Last Admin: 04/06/18 16:10 Dose: 75 mls/hr Azithromycin (Zithromax 500mg Ivpb (Pre-Docked)) 500 mg in 250 mls @ 250 mls/ hr IVPB DAILY [facility] Last Admin: 04/06/18 18:32 Dose: 250 mls/hr Ceftriaxone Sodium 2 gm/ (Dextrose) 100 mls @ 200 mls/hr IVPB DAILY [facility]; Protocol Last Admin: 04/06/18 17:58 Dose: 200 mls/hr Methylprednisolone Sodium Succinate (Solu-Medrol -) 80 mg IVPUSH Q8H-IV [facility] Last Admin: 04/07/18 02:17 Dose: 80 mg Mometasone Furoate (Asmanex 110mcg -) 1 puff IH HS [facility] Last Admin: 04/06/18 21:59 Dose: 1 puff Pantoprazole Sodium (Protonix -) 40 mg PO DAILY [facility] Last Admin: 04/06/18 10:06 Dose: 40 mg #COPD Cont IV steroids and antibiotics Inhaled Bronchodilators Flex Bronchoscopy to be done today CT scan showed bronchiectasis ID consult appreciated Cultures pending #HTN BP stable- no meds #Anemia Trend H & H #CKD Renal consult appreciated Trend BUN and Creatinine Problem List - Problems (1) COPD (chronic obstructive pulmonary disease) Code(s): J44.9 - CHRONIC OBSTRUCTIVE PULMONARY DISEASE, UNSPECIFIED (2) Shortness of breath (3) HTN (hypertension) Code(s): I10 - ESSENTIAL (PRIMARY) HYPERTENSION (4) Weight decreased Code(s): R63.4 - ABNORMAL WEIGHT LOSS (5) Anemia Code(s): D64.9 - ANEMIA, UNSPECIFIED (6) Chronic kidney disease Code(s): N18.9 - CHRONIC KIDNEY DISEASE, UNSPECIFIED
[2018-04-07] MEDS: CEFTRIAXONE 2 GM in DEXTROSE 5%-WATER 100 ML IVPB SCH (12:03)
[2018-04-07] MEDS: PANTOPRAZOLE 40 MG TABLET (FP) PO SCH (12:04)
[2018-04-07] MEDS: AZITHROMYCIN IVPB 500 MG/250 ML BAG IVPB SCH (12:04)
[2018-04-07] MEDS ORDERED: guaiFENesin/CODEINE 5 ML UNIT-DOSE CUPS PO PRN (13:09)
--- NOTE | 2018-04-07 13:09 | PN ---
Progress Note, Physician History of Present Illness: pulmonary alert,feeling better,less dyspneic,+ cough,-cp. pt scheduled for flex bronch today - Current Medication List Current Medications: Active Medications Albuterol/Ipratropium (Duoneb -) 1 amp NEB RQID [facility] Last Admin: 04/07/18 12:05 Dose: 1 amp Docusate Sodium (Colace -) 100 mg PO BID@0600,1800 [facility] Last Admin: 04/07/18 05:20 Dose: Not Given Sodium Chloride (Normal Saline -) 1,000 mls @ 75 mls/hr IV ASDIR [facility] Last Admin: 04/06/18 16:10 Dose: 75 mls/hr Azithromycin (Zithromax 500mg Ivpb (Pre-Docked)) 500 mg in 250 mls @ 250 mls/ hr IVPB DAILY [facility] Last Admin: 04/07/18 12:04 Dose: 250 mls/hr Ceftriaxone Sodium 2 gm/ (Dextrose) 100 mls @ 200 mls/hr IVPB DAILY [facility]; Protocol Last Admin: 04/07/18 12:03 Dose: 200 mls/hr Methylprednisolone Sodium Succinate (Solu-Medrol -) 80 mg IVPUSH Q8H-IV [facility] Last Admin: 04/07/18 12:03 Dose: 80 mg Mometasone Furoate (Asmanex 110mcg -) 1 puff IH HS [facility] Last Admin: 04/06/18 21:59 Dose: 1 puff Pantoprazole Sodium (Protonix -) 40 mg PO DAILY [facility] Last Admin: 04/07/18 12:04 Dose: 40 mg - Objective Vital Signs: Vital Signs Temperature 97.5 F L 04/07/18 06:00 Pulse Rate 82 04/07/18 06:00 Respiratory Rate 20 04/07/18 06:00 Blood Pressure 117/65 04/07/18 06:00 O2 Sat by Pulse Oximetry (%) 96 04/06/18 21:00 Constitutional: Yes: Well Nourished, Thin Eyes: Yes: WNL HENT: Yes: WNL Neck: Yes: WNL Cardiovascular: Yes: Regular Rate and Rhythm, S1, S2 Respiratory: Yes: CTA Bilaterally Gastrointestinal: Yes: Normal Bowel Sounds, Soft Extremities: Yes: WNL Edema: No Labs: CBC, BMP 04/07/18 07:30 04/07/18 07:30 INR, PTT INR 1.13 (0.83-1.09) H 04/06/18 11:30 Problem List - Problems (1) Acute kidney injury Code(s): N17.9 - ACUTE KIDNEY FAILURE, UNSPECIFIED (2) Anemia Code(s): D64.9 - ANEMIA, UNSPECIFIED (3) COPD (chronic obstructive pulmonary disease) Code(s): J44.9 - CHRONIC OBSTRUCTIVE PULMONARY DISEASE, UNSPECIFIED (4) HTN (hypertension) Code(s): I10 - ESSENTIAL (PRIMARY) HYPERTENSION (5) Weight decreased Code(s): R63.4 - ABNORMAL WEIGHT LOSS Assessment/Plan IMP BILATERAL INFILTRATES ? INFECTIOUS,?INFLAMMATORY,?MALIGNANCY NANDINI ANEMIA PLAN ABX PER ID CHECK CULTURES STEROIDS INHALED BRONCHODILATORS IVF MONITOR LYTES,RENALFUNCTION,CBC O2 FLEX BRONCHOSCOPY TODAY SEROLOGY DR CORNELL Problem List - Problems (1) Acute kidney injury Code(s): N17.9 - ACUTE KIDNEY FAILURE, UNSPECIFIED (2) Anemia Code(s): D64.9 - ANEMIA, UNSPECIFIED (3) COPD (chronic obstructive pulmonary disease) Code(s): J44.9 - CHRONIC OBSTRUCTIVE PULMONARY DISEASE, UNSPECIFIED (4) HTN (hypertension) Code(s): I10 - ESSENTIAL (PRIMARY) HYPERTENSION (5) Weight decreased Code(s): R63.4 - ABNORMAL WEIGHT LOSS
[2018-04-07] MEDS ORDERED: PROPOFOL 20 ML ONE (16:08)
[2018-04-07] MEDS ORDERED: SUCCINYLCHOLINE CHLORIDE 200 MG/10 ML VIAL ONE (16:09)
[2018-04-07] MEDS ORDERED: ROCURONIUM BROMIDE 50 MG/5 ML VIAL ONE (16:18)
--- NOTE | 2018-04-07 17:07 | PROC ---
Procedure Note Procedure: BRONCHOSCOPY NOTE After discussing the risks and benefits of the procedure, informed consent was obtained. Pt was placed under general anesthesia and was intubated with a size 8.0 ETT by anesthesia. Prim’Vision video bronchoscope was passed via the ETT and the airways were examined down to the subsegmental level. The alejandra was sharp, there were no endobronchial lesions noted in either lung. Transbronchial biopsies were taken from the right lower lobe superior segment and the left upper lobe anterior segment. There was some bleeding after the biopsies were taken but ceased after some saline lavages. The left upper lobe anterior segment was then wedged and lavaged with saline. Areas were visualized until hemostasis achieved. Bronchoscope then withdrawn and procedure terminated. Pre-op Dx: interstitial lung disease Post-op Dx: same Plan: - f/u BAL for C&S, AFB and fungus cultures - f/u cytology and pathology - monitor for hemoptysis Austin Douglas MD
[2018-04-07] MEDS ORDERED: methylPREDNISolone NA SUCC 40 MG/1 ML VIAL IVPUSH SCH (18:00)
[2018-04-07] MEDS: SODIUM CHLORIDE 1,000 ML IV SCH (18:32)
--- NOTE | 2018-04-07 18:58 | PN ---
Progress Note, Physician History of Present Illness: Pt seen and examined at bedside. She went for a bronch today. She denies dysuria. - Current Medication List Current Medications: Active Medications Albuterol/Ipratropium (Duoneb -) 1 amp NEB RQID [facility] Docusate Sodium (Colace -) 100 mg PO BID@0600,1800 [facility] Guaifenesin/Codeine Phosphate (Robitussin Ac -) 5 ml PO Q8H PRN PRN Reason: COUGH Azithromycin (Zithromax 500mg Ivpb (Pre-Docked)) 500 mg in 250 mls @ 250 mls/ hr IVPB DAILY [facility] Ceftriaxone Sodium 2 gm/ (Dextrose) 100 mls @ 200 mls/hr IVPB DAILY [facility]; Protocol Sodium Chloride (Normal Saline -) 1,000 mls @ 75 mls/hr IV ASDIR [facility] Last Admin: 04/07/18 18:32 Dose: 75 mls/hr Methylprednisolone Sodium Succinate (Solu-Medrol -) 60 mg IVPUSH Q8H-IV [facility] Last Admin: 04/07/18 18:27 Dose: 60 mg Mometasone Furoate (Asmanex 110mcg -) 1 puff IH HS [facility] Pantoprazole Sodium (Protonix -) 40 mg PO DAILY [facility] - Objective Vital Signs: Vital Signs Temperature 98 F 04/07/18 18:15 Pulse Rate 72 04/07/18 18:15 Respiratory Rate 16 04/07/18 18:15 Blood Pressure 116/72 04/07/18 18:15 O2 Sat by Pulse Oximetry (%) 95 04/07/18 18:15 Constitutional: Yes: Calm Eyes: Yes: Conjunctiva Clear HENT: Yes: Atraumatic Neck: Yes: Supple Cardiovascular: Yes: S1, S2 Respiratory: Yes: On Nasal O2 Gastrointestinal: Yes: Soft Genitourinary: Yes: WNL Musculoskeletal: Yes: WNL Edema: No Neurological: Yes: Oriented Psychiatric: Yes: Oriented Labs: CBC, BMP 04/07/18 07:30 04/07/18 07:30 INR, PTT INR 1.13 (0.83-1.09) H 04/06/18 11:30 Assessment/Plan Current Medications Generic Name Dose Route Start Last Admin Trade Name Freq PRN Reason Stop Dose Admin Albuterol/Ipratropium 1 amp 04/07/18 20:00 Duoneb - NEB RQID [facility] Docusate Sodium 100 mg 04/07/18 18:00 Colace - PO BID@0600,1800 [facility] Guaifenesin/Codeine Phosphate 5 ml 04/07/18 17:45 Robitussin Ac - PO Q8H PRN COUGH Azithromycin 500 mg in 250 mls @ 250 mls/hr 04/08/18 10:00 Zithromax 500mg Ivpb (Pre-Docked) IVPB DAILY [facility] Ceftriaxone Sodium 2 gm/ 100 mls @ 200 mls/hr 04/08/18 10:00 Dextrose IVPB DAILY [facility] Protocol Sodium Chloride 1,000 mls @ 75 mls/hr 04/07/18 17:45 04/07/18 18:32 Normal Saline - IV 75 mls/hr ASDIR [facility] Administration Methylprednisolone Sodium Succinate 60 mg 04/07/18 18:00 04/07/18 18:27 Solu-Medrol - IVPUSH 60 mg Q8H-IV [facility] Administration Mometasone Furoate 1 puff 04/07/18 22:00 Asmanex 110mcg - IH HS [facility] Pantoprazole Sodium 40 mg 04/08/18 10:00 Protonix - PO DAILY [facility] Impression 1. NANDINI 2. lung lesions 3. weight loss 4. cough 5. HTN Plan - cont saline - renal workup in progress - renal ultrasound reviewed - urine sodium is low and characteristic of pre-renal disease - follow up bronch findings
[2018-04-07] MEDS: ACETAMINOPHEN 325 MG TABLET (FP) PO PRN (20:43)
[2018-04-07] MEDS: BENZOCAINE/MENTH/CETYLPYRD CL 1 EACH LOZENGE MM PRN (21:39)
[2018-04-07] MEDS: guaiFENesin/CODEINE 5 ML UNIT-DOSE CUPS PO PRN (21:39)
[2018-04-07] MEDS: DOCUSATE SODIUM 100 MG CAPSULE (FP) PO SCH (21:39)
[2018-04-07] MEDS: MOMETASONE FUROATE 110 MCG/IH INHALER IH SCH (21:42)
[2018-04-08] MEDS: methylPREDNISolone NA SUCC 40 MG/1 ML VIAL IVPUSH SCH ×3 (02:59→17:12)
[2018-04-08 04:17] LABS: HBSAG SCREEN Negative (Negative); HEP B CORE AB, TOT Negative (Negative)
[2018-04-08] MEDS: guaiFENesin/CODEINE 5 ML UNIT-DOSE CUPS PO PRN ×3 (06:13→21:56)
[2018-04-08] MEDS: DOCUSATE SODIUM 100 MG CAPSULE (FP) PO SCH ×2 (06:13→17:18)
[2018-04-08] MEDS: SODIUM CHLORIDE 1,000 ML IV SCH ×2 (06:15→21:51)
[2018-04-08] MEDS: ALBUTEROL SO4 2.5/IPRATROPIUM 0.5 INH SOL 3 ML VIAL.NEB. NEB SCH ×4 (08:53→20:02)
[2018-04-08 09:51] LABS: HEMATOCRIT 24.9 % (32.4-45.2); HEMOGLOBIN 8.8 GM/dL (10.7-15.3); MCH 30.6 pg (25.7-33.7); MCHC 35.3 g/dl (32.0-36.0); MEAN CELL VOLUME 86.6 fl (80-96); MEAN PLT VOLUME 7.6 fl (7.5-11.1); MONO % 2.7 % (3.8-10.2); NEUT % 92.3 % (42.8-82.8); PLATELET COUNT 628 K/MM3 (134-434); RBC 2.87 M/mm3 (3.60-5.2); RDW 13.5 % (11.6-15.6); WHITE BLOOD COUNT 21.4 K/mm3 (4.0-10.0)
--- NOTE | 2018-04-08 10:08 | PN ---
Progress Note (short form) - Note Progress Note: POD #1 - s/p bronchoscopy under general anesthesia. VSS. Pt. doing well, resting comfortably in bed. No complaints. No apparent anesthetic complications noted. Continue current care.
[2018-04-08 10:33] LABS: ALBUMIN 2.2 g/dl (3.4-5.0); ALK PHOS 66 U/L (45-117); ANION GAP 9 MMOL/L (8-16); BILIRUBIN,TOTAL 0.4 mg/dL (0.2-1); BLOOD UREA NITROGEN 36 mg/dL (7-18); CALCIUM 8.2 mg/dL (8.5-10.1); CHLORIDE 101 mmol/L (98-107); CO2 26 mmol/L (21-32); CREATININE 2.2 mg/dL (0.55-1.3); GLUCOSE,RANDOM 138 mg/dL (74-106); POTASSIUM 3.7 mmol/L (3.5-5.1); SGOT/AST 20 U/L (15-37); SGPT/ALT 24 U/L (13-61); SODIUM 136 mmol/L (136-145); TOT PROT 7.4 g/dl (6.4-8.2)
[2018-04-08] MEDS ORDERED: DEXTROSE 5%-WATER 100 ML IVPB ONE (11:11)
[2018-04-08] MEDS: AZITHROMYCIN IVPB 500 MG/250 ML BAG IVPB SCH (11:46)
[2018-04-08] MEDS: PANTOPRAZOLE 40 MG TABLET (FP) PO SCH (11:47)
[2018-04-08] MEDS: CEFTRIAXONE 2 GM in DEXTROSE 5%-WATER 100 ML IVPB SCH (11:47)
--- NOTE | 2018-04-08 12:30 | PN ---
Progress Note (short form) - Note Progress Note: PULMONARY States breathing slightly improving. No fevers or chills. No hemoptysis. Vital Signs Period Temp Pulse Resp BP Sys/Devries Pulse Ox Last 24 Hr 97.5 F-98.5 F 72-95 16-22 104-159/61-77 91-98 Gen: NAD at rest Heart: RRR Lung: basilar rales Abd: soft, nontender Ext: no edema CBC, BMP 04/08/18 08:30 04/08/18 08:30 Active Medications Acetaminophen (Tylenol -) 650 mg PO Q6H PRN PRN Reason: FEVER Last Admin: 04/07/18 20:43 Dose: 650 mg Albuterol/Ipratropium (Duoneb -) 1 amp NEB RQID [facility] Last Admin: 04/08/18 12:25 Dose: 1 amp Benzocaine/Menthol (Cepacol Lozenge -) 1 each MM PRN PRN PRN Reason: SORE THROAT Last Admin: 04/07/18 21:39 Dose: 1 each Docusate Sodium (Colace -) 100 mg PO BID@0600,1800 [facility] Last Admin: 04/08/18 06:13 Dose: 100 mg Guaifenesin/Codeine Phosphate (Robitussin Ac -) 5 ml PO Q8H PRN PRN Reason: COUGH Last Admin: 04/08/18 11:47 Dose: 5 ml Azithromycin (Zithromax 500mg Ivpb (Pre-Docked)) 500 mg in 250 mls @ 250 mls/ hr IVPB DAILY [facility] Last Admin: 04/08/18 11:46 Dose: 250 mls/hr Ceftriaxone Sodium 2 gm/ (Dextrose) 100 mls @ 200 mls/hr IVPB DAILY [facility]; Protocol Last Admin: 04/08/18 11:47 Dose: 200 mls/hr Sodium Chloride (Normal Saline -) 1,000 mls @ 75 mls/hr IV ASDIR [facility] Last Admin: 04/08/18 06:15 Dose: 75 mls/hr Methylprednisolone Sodium Succinate (Solu-Medrol -) 60 mg IVPUSH Q8H-IV [facility] Last Admin: 04/08/18 11:46 Dose: 60 mg Mometasone Furoate (Asmanex 110mcg -) 1 puff IH HS [facility] Last Admin: 04/07/18 21:42 Dose: 1 inh Pantoprazole Sodium (Protonix -) 40 mg PO DAILY [facility] Last Admin: 04/08/18 11:47 Dose: 40 mg A/P Bilateral Pulmonary Infiltrates r/o Interstitial Lung Disease Acute Kidney Injury Anemia - continue medrol - inhaled bronchodilators - f/u pathology - f/u pending serologies - IVF - monitor urine output, creatinine - DVT prophylaxis
--- NOTE | 2018-04-08 13:08 | PN ---
Progress Note (short form) - Note Progress Note: Consult Specialty:: Cardiology Referred by:: Korey Reason for Consultation:: shortness of breath s: sob improving, s/p bronch yesterday. no chest pain, palps, dizziness, lightheadedness Current Medications Acetaminophen (Tylenol -) 650 mg PO Q6H PRN PRN Reason: FEVER Last Admin: 04/07/18 20:43 Dose: 650 mg Albuterol/Ipratropium (Duoneb -) 1 amp NEB RQID [facility] Last Admin: 04/08/18 12:25 Dose: 1 amp Benzocaine/Menthol (Cepacol Lozenge -) 1 each MM PRN PRN PRN Reason: SORE THROAT Last Admin: 04/07/18 21:39 Dose: 1 each Docusate Sodium (Colace -) 100 mg PO BID@0600,1800 [facility] Last Admin: 04/08/18 06:13 Dose: 100 mg Guaifenesin/Codeine Phosphate (Robitussin Ac -) 5 ml PO Q8H PRN PRN Reason: COUGH Last Admin: 04/08/18 11:47 Dose: 5 ml Azithromycin (Zithromax 500mg Ivpb (Pre-Docked)) 500 mg in 250 mls @ 250 mls/ hr IVPB DAILY [facility] Last Admin: 04/08/18 11:46 Dose: 250 mls/hr Ceftriaxone Sodium 2 gm/ (Dextrose) 100 mls @ 200 mls/hr IVPB DAILY [facility]; Protocol Last Admin: 04/08/18 11:47 Dose: 200 mls/hr Sodium Chloride (Normal Saline -) 1,000 mls @ 75 mls/hr IV ASDIR [facility] Last Admin: 04/08/18 06:15 Dose: 75 mls/hr Methylprednisolone Sodium Succinate (Solu-Medrol -) 60 mg IVPUSH Q8H-IV [facility] Last Admin: 04/08/18 11:46 Dose: 60 mg Mometasone Furoate (Asmanex 110mcg -) 1 puff IH HS [facility] Last Admin: 04/07/18 21:42 Dose: 1 inh Pantoprazole Sodium (Protonix -) 40 mg PO DAILY [facility] Last Admin: 04/08/18 11:47 Dose: 40 mg Vital Signs: Vital Signs Period Temp Pulse Resp BP Sys/Devries Pulse Ox Last 24 Hr 97.5 F-98.5 F 72-95 16-22 104-159/61-77 91-98 Assessment/Plan EKG: sinus rhythm, no ischemic changes CT chest multifocal jean-pierre upper and lower lung opacities likely infectious/ inflammatory infiltrates. mild jean-pierre lower lobe and min to mild jean-pierre upper lobe bronchiectasis with associated mild bronchial wall thickening 82F h/o HTN, COPD p/w shortness of breath, cough shortness of breath, cough - trop neg x 2, BNP not diagnostic of HF - less likely cardiac etiology - pulm and ID following, infectious workup, s/p bronch - improving COPD - manage per pulm HTN - stable BP not on meds, monitor NANDINI - unclear baseline - nephrology consulted
[2018-04-08 13:17] LABS: ANISOCYTOSIS 1+; MACROCYTOSIS 1+; PLATELET ESTIMATE INCREASED
[2018-04-08] MEDS: BENZOCAINE/MENTH/CETYLPYRD CL 1 EACH LOZENGE MM PRN ×2 (17:12→21:56)
[2018-04-08] MEDS: MOMETASONE FUROATE 110 MCG/IH INHALER IH SCH (21:51)
--- NOTE | 2018-04-08 23:27 | PN ---
Progress Note (short form) - Note Progress Note: covering dr olson problems 1. NANDINI 2. lung lesions 3. weight loss 4. cough 5. HTN Active Medications Acetaminophen (Tylenol -) 650 mg PO Q6H PRN PRN Reason: FEVER Last Admin: 04/07/18 20:43 Dose: 650 mg Albuterol/Ipratropium (Duoneb -) 1 amp NEB RQID [facility] Last Admin: 04/08/18 20:02 Dose: 1 amp Benzocaine/Menthol (Cepacol Lozenge -) 1 each MM PRN PRN PRN Reason: SORE THROAT Last Admin: 04/08/18 21:56 Dose: 1 each Docusate Sodium (Colace -) 100 mg PO BID@0600,1800 [facility] Last Admin: 04/08/18 17:18 Dose: 100 mg Guaifenesin/Codeine Phosphate (Robitussin Ac -) 5 ml PO Q8H PRN PRN Reason: COUGH Last Admin: 04/08/18 21:56 Dose: 5 ml Azithromycin (Zithromax 500mg Ivpb (Pre-Docked)) 500 mg in 250 mls @ 250 mls/ hr IVPB DAILY [facility] Last Admin: 04/08/18 11:46 Dose: 250 mls/hr Ceftriaxone Sodium 2 gm/ (Dextrose) 100 mls @ 200 mls/hr IVPB DAILY [facility]; Protocol Last Admin: 04/08/18 11:47 Dose: 200 mls/hr Sodium Chloride (Normal Saline -) 1,000 mls @ 75 mls/hr IV ASDIR [facility] Last Admin: 04/08/18 21:51 Dose: 75 mls/hr Methylprednisolone Sodium Succinate (Solu-Medrol -) 60 mg IVPUSH Q8H-IV [facility] Last Admin: 04/08/18 17:12 Dose: 60 mg Mometasone Furoate (Asmanex 110mcg -) 1 puff IH HS [facility] Last Admin: 04/08/18 21:51 Dose: 1 inh Pantoprazole Sodium (Protonix -) 40 mg PO DAILY [facility] Last Admin: 04/08/18 11:47 Dose: 40 mg Last Vital Signs Temp Pulse Resp BP Pulse Ox 98.2 F 81 20 140/70 97 04/08/18 21:59 04/08/18 21:59 12/22/18 21:59 04/08/18 21:59 04/08/18 09:00 CBC, BMP 04/08/18 08:30 04/08/18 08:30 04/06/18 04/07/18 04/08/18 06:30 07:30 08:30 Sodium 134 L 133 L 136 Potassium 4.0 3.7 BUN 26 H 35 H 36 H Creatinine 2.1 H 2.3 H 2.2 H Plan - cont saline - renal workup in progress - renal ultrasound reviewed - urine sodium is low and characteristic of pre-renal disease - follow up bronch findings
--- NOTE | 2018-04-08 23:39 | PN ---
Progress Note (short form) - Note Progress Note: in bed comfortable s/p bronchoscopy breathing improved Vital Signs Period Temp Pulse Resp BP Sys/Devries Pulse Ox Last 24 Hr 97.5 F-98.5 F 75-84 18-20 111-140/64-70 97 neck supple heart S1/S2 lungs grossly clear abd soft non tender ext no edema CBC, BMP 04/08/18 08:30 04/08/18 08:30 Microbiology 04/06/18 20:30 Blood - Peripheral Venous Blood Culture - Preliminary NO GROWTH OBTAINED AFTER 48 HOURS, INCUBATION TO CONTINUE FOR 3 DAYS. 04/06/18 18:30 Blood - Peripheral Venous Blood Culture - Preliminary NO GROWTH OBTAINED AFTER 48 HOURS, INCUBATION TO CONTINUE FOR 3 DAYS. 04/07/18 17:30 Bronchial Washings - Left Upper Lobe Gram Stain - Final 04/06/18 22:00 Sputum - Expectorated Gram Stain - Final 04/06/18 22:00 Sputum - Expectorated Sputum Culture - Preliminary NORMAL RESPIRATORY POLA 04/07/18 17:30 Bronchial Washings - Left Upper Lobe JUSTA Preparation - Preliminary 04/07/18 17:30 Bronchial Washings - Left Upper Lobe Fungal Culture - Preliminary 04/06/18 19:02 Urine For Antigen Detection Legionella Antigen - Final 04/06/18 19:02 Urine For Antigen Detection Streptococcus pneumoniae Antigen (M - Final Active Medications Acetaminophen (Tylenol -) 650 mg PO Q6H PRN PRN Reason: FEVER Last Admin: 04/07/18 20:43 Dose: 650 mg Albuterol/Ipratropium (Duoneb -) 1 amp NEB RQID [facility] Last Admin: 04/08/18 20:02 Dose: 1 amp Benzocaine/Menthol (Cepacol Lozenge -) 1 each MM PRN PRN PRN Reason: SORE THROAT Last Admin: 04/08/18 21:56 Dose: 1 each Docusate Sodium (Colace -) 100 mg PO BID@0600,1800 [facility] Last Admin: 04/08/18 17:18 Dose: 100 mg Guaifenesin/Codeine Phosphate (Robitussin Ac -) 5 ml PO Q8H PRN PRN Reason: COUGH Last Admin: 04/08/18 21:56 Dose: 5 ml Azithromycin (Zithromax 500mg Ivpb (Pre-Docked)) 500 mg in 250 mls @ 250 mls/ hr IVPB DAILY [facility] Last Admin: 04/08/18 11:46 Dose: 250 mls/hr Ceftriaxone Sodium 2 gm/ (Dextrose) 100 mls @ 200 mls/hr IVPB DAILY [facility]; Protocol Last Admin: 04/08/18 11:47 Dose: 200 mls/hr Sodium Chloride (Normal Saline -) 1,000 mls @ 75 mls/hr IV ASDIR [facility] Last Admin: 04/08/18 21:51 Dose: 75 mls/hr Methylprednisolone Sodium Succinate (Solu-Medrol -) 60 mg IVPUSH Q8H-IV [facility] Last Admin: 04/08/18 17:12 Dose: 60 mg Mometasone Furoate (Asmanex 110mcg -) 1 puff IH HS [facility] Last Admin: 04/08/18 21:51 Dose: 1 inh Pantoprazole Sodium (Protonix -) 40 mg PO DAILY [facility] Last Admin: 04/08/18 11:47 Dose: 40 mg Assmt / plan # dyspnea bilateral pulmonary infiltrates continue abx / steroids / PPi / nebulizer s/p bronchoscopy await bx / c/s # acute on CKD IV fluids work up in progress appreciate nephrology follow up # anemia work -up Problem List - Problems (1) COPD (chronic obstructive pulmonary disease) Code(s): J44.9 - CHRONIC OBSTRUCTIVE PULMONARY DISEASE, UNSPECIFIED (2) Shortness of breath (3) HTN (hypertension) Code(s): I10 - ESSENTIAL (PRIMARY) HYPERTENSION (4) Weight decreased Code(s): R63.4 - ABNORMAL WEIGHT LOSS (5) Anemia Code(s): D64.9 - ANEMIA, UNSPECIFIED (6) Chronic kidney disease Code(s): N18.9 - CHRONIC KIDNEY DISEASE, UNSPECIFIED
[2018-04-09] MEDS: methylPREDNISolone NA SUCC 40 MG/1 ML VIAL IVPUSH SCH ×3 (01:34→18:21)
[2018-04-09] MEDS: DOCUSATE SODIUM 100 MG CAPSULE (FP) PO SCH ×2 (06:44→18:23)
[2018-04-09] MEDS: ALBUTEROL SO4 2.5/IPRATROPIUM 0.5 INH SOL 3 ML VIAL.NEB. NEB SCH ×4 (08:17→19:41)
[2018-04-09] MEDS ORDERED: DEXTROSE 5%-WATER 100 ML IVPB ONE (09:43)
[2018-04-09] MEDS: CEFTRIAXONE 2 GM in DEXTROSE 5%-WATER 100 ML IVPB SCH (10:00)
[2018-04-09] MEDS: AZITHROMYCIN IVPB 500 MG/250 ML BAG IVPB SCH (10:00)
[2018-04-09] MEDS: PANTOPRAZOLE 40 MG TABLET (FP) PO SCH (10:01)
--- NOTE | 2018-04-09 11:37 | PN ---
Progress Note (short form) - Note Progress Note: PULMONARY States breathing slightly improving. No fevers or chills. No hemoptysis. DERECK positive 1:160 in homogenous pattern. Vital Signs Period Temp Pulse Resp BP Sys/Devries Pulse Ox Last 24 Hr 97.3 F-98.5 F 71-84 19-20 111-140/64-75 97 Gen: NAD at rest Heart: RRR Lung: basilar rales Abd: soft, nontender Ext: no edema CBC, BMP 04/08/18 08:30 04/08/18 08:30 Active Medications Acetaminophen (Tylenol -) 650 mg PO Q6H PRN PRN Reason: FEVER Last Admin: 04/07/18 20:43 Dose: 650 mg Albuterol/Ipratropium (Duoneb -) 1 amp NEB RQID [facility] Last Admin: 04/09/18 08:17 Dose: 1 amp Benzocaine/Menthol (Cepacol Lozenge -) 1 each MM PRN PRN PRN Reason: SORE THROAT Last Admin: 04/08/18 21:56 Dose: 1 each Docusate Sodium (Colace -) 100 mg PO BID@0600,1800 [facility] Last Admin: 04/09/18 06:44 Dose: 100 mg Guaifenesin/Codeine Phosphate (Robitussin Ac -) 5 ml PO Q8H PRN PRN Reason: COUGH Last Admin: 04/08/18 21:56 Dose: 5 ml Azithromycin (Zithromax 500mg Ivpb (Pre-Docked)) 500 mg in 250 mls @ 250 mls/ hr IVPB DAILY [facility] Last Admin: 04/09/18 10:00 Dose: 250 mls/hr Ceftriaxone Sodium 2 gm/ (Dextrose) 100 mls @ 200 mls/hr IVPB DAILY [facility]; Protocol Last Admin: 04/09/18 10:00 Dose: 200 mls/hr Sodium Chloride (Normal Saline -) 1,000 mls @ 75 mls/hr IV ASDIR [facility] Last Admin: 04/08/18 21:51 Dose: 75 mls/hr Methylprednisolone Sodium Succinate (Solu-Medrol -) 60 mg IVPUSH Q8H-IV [facility] Last Admin: 04/09/18 10:01 Dose: 60 mg Mometasone Furoate (Asmanex 110mcg -) 1 puff IH HS [facility] Last Admin: 04/08/18 21:51 Dose: 1 inh Pantoprazole Sodium (Protonix -) 40 mg PO DAILY [facility] Last Admin: 04/09/18 10:01 Dose: 40 mg A/P Bilateral Pulmonary Infiltrates r/o Interstitial Lung Disease Acute Kidney Injury Anemia - will decrease medrol to 40mg q8h - consider rheum eval - inhaled bronchodilators - f/u pathology - f/u pending serologies - IVF - monitor urine output, creatinine - DVT prophylaxis
--- NOTE | 2018-04-09 15:37 | PN ---
Progress Note (short form) - Note Progress Note: in bed comfortable s/p bronchoscopy breathing improved Vital Signs Period Temp Pulse Resp BP Sys/Devries Pulse Ox Last 24 Hr 97.5 F-98.5 F 75-84 18-20 111-140/64-70 97 neck supple heart S1/S2 lungs grossly clear abd soft non tender ext no edema CBC, BMP 04/08/18 08:30 04/08/18 08:30 Microbiology 04/06/18 20:30 Blood - Peripheral Venous Blood Culture - Preliminary NO GROWTH OBTAINED AFTER 48 HOURS, INCUBATION TO CONTINUE FOR 3 DAYS. 04/06/18 18:30 Blood - Peripheral Venous Blood Culture - Preliminary NO GROWTH OBTAINED AFTER 48 HOURS, INCUBATION TO CONTINUE FOR 3 DAYS. 04/07/18 17:30 Bronchial Washings - Left Upper Lobe Gram Stain - Final 04/06/18 22:00 Sputum - Expectorated Gram Stain - Final 04/06/18 22:00 Sputum - Expectorated Sputum Culture - Preliminary NORMAL RESPIRATORY POLA 04/07/18 17:30 Bronchial Washings - Left Upper Lobe JUSTA Preparation - Preliminary 04/07/18 17:30 Bronchial Washings - Left Upper Lobe Fungal Culture - Preliminary 04/06/18 19:02 Urine For Antigen Detection Legionella Antigen - Final 04/06/18 19:02 Urine For Antigen Detection Streptococcus pneumoniae Antigen (M - Final Active Medications Acetaminophen (Tylenol -) 650 mg PO Q6H PRN PRN Reason: FEVER Last Admin: 04/07/18 20:43 Dose: 650 mg Albuterol/Ipratropium (Duoneb -) 1 amp NEB RQID [facility]O Last Admin: 04/09/18 12:27 Dose: 1 amp Benzocaine/Menthol (Cepacol Lozenge -) 1 each MM PRN PRN PRN Reason: SORE THROAT Last Admin: 04/08/18 21:56 Dose: 1 each Docusate Sodium (Colace -) 100 mg PO BID@0600,1800 [facility] Last Admin: 04/09/18 06:44 Dose: 100 mg Guaifenesin/Codeine Phosphate (Robitussin Ac -) 5 ml PO Q8H PRN PRN Reason: COUGH Last Admin: 04/08/18 21:56 Dose: 5 ml Azithromycin (Zithromax 500mg Ivpb (Pre-Docked)) 500 mg in 250 mls @ 250 mls/ hr IVPB DAILY L[facility]O Last Admin: 04/09/18 10:00 Dose: 250 mls/hr Ceftriaxone Sodium 2 gm/ (Dextrose) 100 mls @ 200 mls/hr IVPB DAILY [facility]; Protocol Last Admin: 04/09/18 10:00 Dose: 200 mls/hr Sodium Chloride (Normal Saline -) 1,000 mls @ 75 mls/hr IV ASDIR [facility] Last Admin: 04/08/18 21:51 Dose: 75 mls/hr Methylprednisolone Sodium Succinate (Solu-Medrol -) 40 mg IVPUSH Q8H-IV LALO Mometasone Furoate (Asmanex 110mcg -) 1 puff IH HS LALO Last Admin: 04/08/18 21:51 Dose: 1 inh Pantoprazole Sodium (Protonix -) 40 mg PO DAILY LALO Last Admin: 04/09/18 10:01 Dose: 40 mg Assmt / plan # dyspnea bilateral pulmonary infiltrates continue abx / steroids / PPi / nebulizer s/p bronchoscopy await bx / c/s # acute on CKD IV fluids work up in progress appreciate nephrology follow up # anemia work -up Problem List - Problems (1) COPD (chronic obstructive pulmonary disease) Code(s): J44.9 - CHRONIC OBSTRUCTIVE PULMONARY DISEASE, UNSPECIFIED (2) Shortness of breath (3) HTN (hypertension) Code(s): I10 - ESSENTIAL (PRIMARY) HYPERTENSION (4) Weight decreased Code(s): R63.4 - ABNORMAL WEIGHT LOSS (5) Anemia Code(s): D64.9 - ANEMIA, UNSPECIFIED (6) Chronic kidney disease Code(s): N18.9 - CHRONIC KIDNEY DISEASE, UNSPECIFIED
[2018-04-09] MEDS: SODIUM CHLORIDE 1,000 ML IV SCH (18:24)
[2018-04-09] MEDS: MOMETASONE FUROATE 110 MCG/IH INHALER IH SCH (21:31)
--- NOTE | 2018-04-09 22:31 | PN ---
Progress Note (short form) - Note Progress Note: covering dr olson problems 1. NANDINI 2. lung lesions 3. weight loss 4. cough 5. HTN Current Medications Acetaminophen (Tylenol -) 650 mg PO Q6H PRN PRN Reason: FEVER Last Admin: 04/07/18 20:43 Dose: 650 mg Albuterol/Ipratropium (Duoneb -) 1 amp NEB RQID [facility] Last Admin: 04/09/18 19:41 Dose: 1 amp Benzocaine/Menthol (Cepacol Lozenge -) 1 each MM PRN PRN PRN Reason: SORE THROAT Last Admin: 04/08/18 21:56 Dose: 1 each Docusate Sodium (Colace -) 100 mg PO BID@0600,1800 [facility] Last Admin: 04/09/18 18:23 Dose: 100 mg Guaifenesin/Codeine Phosphate (Robitussin Ac -) 5 ml PO Q8H PRN PRN Reason: COUGH Last Admin: 04/08/18 21:56 Dose: 5 ml Azithromycin (Zithromax 500mg Ivpb (Pre-Docked)) 500 mg in 250 mls @ 250 mls/ hr IVPB DAILY [facility] Last Admin: 04/09/18 10:00 Dose: 250 mls/hr Ceftriaxone Sodium 2 gm/ (Dextrose) 100 mls @ 200 mls/hr IVPB DAILY [facility]; Protocol Last Admin: 04/09/18 10:00 Dose: 200 mls/hr Sodium Chloride (Normal Saline -) 1,000 mls @ 75 mls/hr IV ASDIR [facility] Last Admin: 04/09/18 18:24 Dose: 75 mls/hr Methylprednisolone Sodium Succinate (Solu-Medrol -) 40 mg IVPUSH Q8H-IV [facility] Last Admin: 04/09/18 18:21 Dose: 40 mg Mometasone Furoate (Asmanex 110mcg -) 1 puff IH HS [facility] Last Admin: 04/09/18 21:31 Dose: 1 inh Pantoprazole Sodium (Protonix -) 40 mg PO DAILY [facility] Last Admin: 04/09/18 10:01 Dose: 40 mg Last Vital Signs Temp Pulse Resp BP Pulse Ox 98.1 F 69 18 128/79 97 04/09/18 18:30 04/09/18 18:30 04/09/18 18:30 04/09/18 18:30 04/09/18 09:00 lungs clear heart reg abd soft ext no edema CBC, BMP 04/08/18 08:30 04/08/18 08:30 04/06/18 04/07/18 04/08/18 06:30 07:30 08:30 Sodium 134 L 133 L 136 Potassium 4.0 3.7 BUN 26 H 35 H 36 H Creatinine 2.1 H 2.3 H 2.2 H Bilateral Pulmonary Infiltrates r/o Interstitial Lung Disease Acute Kidney Injury Anemia on steroids/inhaled bronchodilators pathology pending serologies pending Plan
[2018-04-10] MEDS: methylPREDNISolone NA SUCC 40 MG/1 ML VIAL IVPUSH SCH ×3 (02:22→21:49)
[2018-04-10] MEDS: DOCUSATE SODIUM 100 MG CAPSULE (FP) PO SCH ×4 (05:17→21:48)
[2018-04-10] MEDS: ACETAMINOPHEN 325 MG TABLET (FP) PO PRN (06:32)
[2018-04-10] MEDS: SODIUM CHLORIDE 1,000 ML IV SCH ×2 (06:34→21:48)
[2018-04-10] MEDS: ALBUTEROL SO4 2.5/IPRATROPIUM 0.5 INH SOL 3 ML VIAL.NEB. NEB SCH ×4 (08:00→21:30)
[2018-04-10] MEDS ORDERED: DEXTROSE 5%-WATER 100 ML IVPB ONE (09:33)
[2018-04-10] MEDS: CEFTRIAXONE 2 GM in DEXTROSE 5%-WATER 100 ML IVPB SCH (09:50)
[2018-04-10] MEDS: PANTOPRAZOLE 40 MG TABLET (FP) PO SCH (09:51)
[2018-04-10] MEDS: AZITHROMYCIN IVPB 500 MG/250 ML BAG IVPB SCH (09:52)
--- NOTE | 2018-04-10 11:05 | PN ---
Progress Note (short form) - Note Progress Note: s: sob improving, no chest pain, palps, dizziness, lightheadedness Current Medications Generic Name Dose Route Start Last Admin Trade Name Freq PRN Reason Stop Dose Admin Acetaminophen 650 mg 04/07/18 20:27 04/10/18 06:32 Tylenol - PO 650 mg Q6H PRN Administration FEVER Albuterol/Ipratropium 1 amp 04/07/18 20:00 04/10/18 08:00 Duoneb - NEB 1 amp RQID LALO Administration Benzocaine/Menthol 1 each 04/07/18 20:27 04/08/18 21:56 Cepacol Lozenge - MM 1 each PRN PRN Administration SORE THROAT Docusate Sodium 100 mg 04/07/18 18:00 04/10/18 05:17 Colace - PO 100 mg BID@0600,1800 [facility] Administration Guaifenesin/Codeine Phosphate 5 ml 04/07/18 17:45 04/08/18 21:56 Robitussin Ac - PO 5 ml Q8H PRN Administration COUGH Azithromycin 500 mg in 250 mls @ 250 mls/hr 04/08/18 10:00 04/10/18 09:52 Zithromax 500mg Ivpb (Pre-Docked) IVPB 250 mls/hr DAILY LALO Administration Ceftriaxone Sodium 2 gm/ 100 mls @ 200 mls/hr 04/08/18 10:00 04/10/18 09:50 Dextrose IVPB 200 mls/hr DAILY LALO Administration Protocol Sodium Chloride 1,000 mls @ 75 mls/hr 04/07/18 17:45 04/10/18 06:34 Normal Saline - IV 75 mls/hr ASDIR LALO Administration Methylprednisolone Sodium Succinate 40 mg 04/09/18 11:37 04/10/18 09:51 Solu-Medrol - IVPUSH 40 mg Q8H-IV LALO Administration Mometasone Furoate 1 puff 04/07/18 22:00 04/09/18 21:31 Asmanex 110mcg - IH 1 inh HS LALO Administration Pantoprazole Sodium 40 mg 04/08/18 10:00 04/10/18 09:51 Protonix - PO 40 mg DAILY LALO Administration Vital Signs: Vital Signs Period Temp Pulse Resp BP Sys/Devries Pulse Ox Last 24 Hr 97.4 F-98.1 F 69-85 - 128-153/65-81 98 nad no jvd rrr ss2 no mrg cta bl nl eff aaox3 no le e/c/c no jaundice diaphoresis CBC, BMP 04/08/18 08:30 04/08/18 08:30 EKG: sinus rhythm, no ischemic changes CT chest multifocal jean-pierre upper and lower lung opacities likely infectious/ inflammatory infiltrates. mild jean-pierre lower lobe and min to mild jean-pierre upper lobe bronchiectasis with associated mild bronchial wall thickening Assessment/Plan 82F h/o HTN, COPD p/w shortness of breath, cough shortness of breath, cough - trop neg x 2, BNP not diagnostic of HF - less likely cardiac etiology - pulm and ID following, ?ILD - improving with tx - will check echo COPD - manage per pulm HTN - stable BP not on meds, monitor NANDINI - unclear baseline - nephrology consulted
[2018-04-10] MEDS ORDERED: MAGNESIUM CITRATE 300 ML BOTTLE PO PRN ×2 (11:31→11:48)
--- NOTE | 2018-04-10 12:17 | CONSULT ---
Consult Consult Specialty:: Rheumatology - History of Present Illness History of Present Illness: 82 year old female with a history of HTN admitted with shortness of breath and cough. HPI The patient has a 2 month history of progressive shortness of breath and cough, apparently productive. Prior to the onset of the present illness she was exercising frequently in a gym and driving. Since the onset of the disease she lost 15 lb and reports frequent fever (100 - 101). The shortness of breath has been progressive, however she denies limitation in walking. She denies skin rash, oral ulcers, Sicca syndrome or arthralgia. On admission she was started on Solumedrol 40 mg BID resulting in significant improvement in SOB. CT of the chest reported with multifocal bilateral upper and lower lung opacities, suggestive of inflammatory./infectious infiltrates. Laboratory work -up revealed, on admission WBC 16.3 and today 21.4. Platelets increased from 580 to 628. ESR was 111 and CRP 16.5 . Creatinine 2.1, urinalysis with protein 1+ and blood 2+. Liver function tests were normal and globulin 5. DERECK 1:160 with homogeneous pattern. Anti-DNAds negative and ANCA pending. - History Source History Provided By: Patient, Medical Record - Past Medical History Cardio/Vascular: Yes: HTN - Alcohol/Substance Use Hx Alcohol Use: Yes (occasional) - Smoking History Smoking history: Never smoked - Social History ADL: Independent History of Recent Travel: No Home Medications - Allergies Allergies/Adverse Reactions: Allergies Allergy/AdvReac Type Severity Reaction Status Date / Time Penicillins Allergy Verified 04/05/18 18:47 - Home Medications Home Medications: Ambulatory Orders Albuterol 2.5/Ipratropium 0.5 [Duoneb -] 1 amp NEB RQID amp 04/14/18 Docusate Sodium [Colace -] 200 mg PO BID 30 Days #60 capsule 04/14/18 Mometasone Furoate [Asmanex 110Mcg -] 1 puff IH HS inhaler 04/14/18 Pantoprazole Sodium [Protonix -] 40 mg PO DAILY tablet.ec 04/14/18 Prednisone [Deltasone] 60 mg PO DAILY 30 Days #90 tablet 04/14/18 Review of Systems - Review of Systems Constitutional: reports: Malaise, Unintentional Wgt. Loss Eyes: reports: No Symptoms HENT: reports: No Symptoms Neck: reports: No Symptoms Cardiovascular: reports: Shortness of Breath Respiratory: reports: Cough, SOB Gastrointestinal: reports: No Symptoms Musculoskeletal: reports: No Symptoms Physical Exam Vital Signs: Vital Signs Temperature 97.4 F L 04/10/18 09:48 Pulse Rate 70 04/10/18 09:48 Respiratory Rate 20 04/10/18 09:48 Blood Pressure 143/65 04/10/18 09:48 O2 Sat by Pulse Oximetry (%) 98 04/09/18 21:00 Constitutional: Yes: Diaphoresis Eyes: Yes: WNL HENT: Yes: WNL Neck: Yes: WNL Cardiovascular: Yes: WNL Respiratory: Yes: Other (Few basal coarse crackles.) Gastrointestinal: Yes: WNL Musculoskeletal: Yes: Other (No active joints,.) Labs: CBC, BMP 04/08/18 08:30 04/08/18 08:30 Laboratory Tests 04/06/18 04/06/18 04/06/18 06:30 06:30 19:02 ESR 111 H Calcium Total Bilirubin AST ALT Alkaline Phosphatase C-Reactive Protein 16.5 H Total Protein 6.9 Albumin 1.9 L Urine Color Straw Urine Appearance Clear Urine pH 5.0 Ur Specific [place] 1.005 L Urine Protein 1+ H Urine Glucose (UA) Negative Urine Ketones Negative Urine Blood 2+ H Urine Nitrite Negative Urine Bilirubin Negative Urine Urobilinogen Negative Ur Leukocyte Esterase Negative Urine WBC (Auto) 2 Urine RBC (Auto) 7 Urine Mucus Rare DERECK Homogeneous Pattern Double Strand DNA Ab 04/07/18 04/07/18 04/07/18 07:30 07:30 12:36 ESR Calcium Total Bilirubin AST ALT Alkaline Phosphatase C-Reactive Protein 12.8 H Total Protein Albumin Urine Color Urine Appearance Urine pH Ur Specific [place] Urine Protein Urine Glucose (UA) Urine Ketones Urine Blood Urine Nitrite Urine Bilirubin Urine Urobilinogen Ur Leukocyte Esterase Urine WBC (Auto) Urine RBC (Auto) Urine Mucus DERECK Homogeneous Pattern 1:160 H Double Strand DNA Ab <1 04/08/18 08:30 ESR Calcium 8.2 L Total Bilirubin 0.4 AST 20 ALT 24 Alkaline Phosphatase 66 C-Reactive Protein Total Protein Albumin Urine Color Urine Appearance Urine pH Ur Specific [place] Urine Protein Urine Glucose (UA) Urine Ketones Urine Blood Urine Nitrite Urine Bilirubin Urine Urobilinogen Ur Leukocyte Esterase Urine WBC (Auto) Urine RBC (Auto) Urine Mucus DERECK Homogeneous Pattern Double Strand DNA Ab Problem List - Problems (1) Lung infiltrate Assessment/Plan: Two month history of shortness of breath, coug, fever, weight loss, presence of bilateral lung infiltrates, leukocytosis, thrombocytosis, elevated ESR and mild chronic kidney disease with mild abnormal urinary sediment. Etiology to be determined,. I cannot rule out vasculitis, even though clinically no other changes suggestive of CTD. Improving with steroids. As per discussion with pulmonary, they will arrange lung wedge biopsy,. Continue same medications. Labs with complement , serum immunofixation . Code(s): R91.8 - OTHER NONSPECIFIC ABNORMAL FINDING OF LUNG FIELD
--- NOTE | 2018-04-10 12:18 | PN ---
Progress Note (short form) - Note Progress Note: Reports breathing is slowly improving. No fevers or chills. No hemoptysis. Pathology pending. Intake & Output 04/07/18 04/08/18 04/09/18 04/10/18 23:59 23:59 23:59 23:59 Intake Total 2650 3425 3300 600 Balance 2650 3425 3300 600 Last Vital Signs Temp Pulse Resp BP Pulse Ox 97.4 F L 70 20 143/65 98 04/10/18 09:48 04/10/18 09:48 04/10/18 09:48 04/10/18 09:48 04/09/18 21:00 Active Medications Acetaminophen (Tylenol -) 650 mg PO Q6H PRN PRN Reason: FEVER Last Admin: 04/10/18 06:32 Dose: 650 mg Albuterol/Ipratropium (Duoneb -) 1 amp NEB RQID [facility] Last Admin: 04/10/18 11:22 Dose: 1 amp Benzocaine/Menthol (Cepacol Lozenge -) 1 each MM PRN PRN PRN Reason: SORE THROAT Last Admin: 04/08/18 21:56 Dose: 1 each Docusate Sodium (Colace -) 100 mg PO BID@0600,1800 [facility] Last Admin: 04/10/18 05:17 Dose: 100 mg Docusate Sodium (Colace -) 200 mg PO BID [facility] Guaifenesin/Codeine Phosphate (Robitussin Ac -) 5 ml PO Q8H PRN PRN Reason: COUGH Last Admin: 04/08/18 21:56 Dose: 5 ml Azithromycin (Zithromax 500mg Ivpb (Pre-Docked)) 500 mg in 250 mls @ 250 mls/ hr IVPB DAILY [facility] Last Admin: 04/10/18 09:52 Dose: 250 mls/hr Ceftriaxone Sodium 2 gm/ (Dextrose) 100 mls @ 200 mls/hr IVPB DAILY [facility]; Protocol Last Admin: 04/10/18 09:50 Dose: 200 mls/hr Sodium Chloride (Normal Saline -) 1,000 mls @ 75 mls/hr IV ASDIR [facility] Last Admin: 04/10/18 06:34 Dose: 75 mls/hr Magnesium Citrate (Citroma -) 300 ml PO Q48H PRN PRN Reason: CONSTIPATION Methylprednisolone Sodium Succinate (Solu-Medrol -) 40 mg IVPUSH BID [facility] Mometasone Furoate (Asmanex 110mcg -) 1 puff IH HS [facility] Last Admin: 04/09/18 21:31 Dose: 1 inh Pantoprazole Sodium (Protonix -) 40 mg PO DAILY [facility] Last Admin: 04/10/18 09:51 Dose: 40 mg Polyethylene Glycol (Miralax (For Daily Use) -) 17 gm PO BID [facility] Gen: NAD at rest Heart: RRR Lung: scattered basilar rhonchi Abd: soft, nontender Ext: no edema A/P Bilateral Pulmonary Infiltrates: Etiology to be determined: (?) HP R/O Interstitial Lung Disease Acute Kidney Injury Anemia - Medrol note - CTS evaluation for possible VAT - inhaled bronchodilators - f/u pathology - monitor urine output, creatinine - DVT prophylaxis - Incentive Spirometry Dr Castellano
--- NOTE | 2018-04-10 13:29 | CONSULT ---
Consult Consult Specialty:: Thoracic Surgery Referred by:: Dr. Castellano Reason for Consultation:: Lung biopsy - History of Present Illness Chief Complaint: dyspnea x 1 month with fever History of Present Illness: 82F, former smoker (1/ ppd x 15 years, quit >40 years ago), HTN, CRI, recently very active, p/w dyspnea on exertion x 1 month associated with intermittent fevers and weight loss. Also endorses night sweats and weight loss. S/P bronchoscopy, biopsy results pending. Request for lung biopsy. - History Source History Provided By: Patient, Medical Record Limitations to Obtaining History: No Limitations - Past Medical History Cardio/Vascular: Yes: HTN Pulmonary: Yes: COPD - Alcohol/Substance Use Hx Alcohol Use: Yes (occasional) - Smoking History Smoking history: Never smoked - Social History ADL: Independent History of Recent Travel: No Home Medications - Allergies Allergies/Adverse Reactions: Allergies Allergy/AdvReac Type Severity Reaction Status Date / Time Penicillins Allergy Verified 04/05/18 18:47 Family Disease History - Family Disease History Family History: Unremarkable Family Disease History: Other: Brother (kidney dz) Review of Systems - Review of Systems Respiratory: reports: Exercise Intolerance, SOB, SOB on Exertion Physical Exam Vital Signs: Vital Signs Temperature 97.4 F L 04/10/18 09:48 Pulse Rate 70 04/10/18 09:48 Respiratory Rate 20 04/10/18 09:48 Blood Pressure 143/65 04/10/18 09:48 O2 Sat by Pulse Oximetry (%) 98 04/09/18 21:00 Constitutional: Yes: Calm Eyes: Yes: WNL HENT: Yes: WNL Neck: Yes: WNL Cardiovascular: Yes: Regular Rate and Rhythm Respiratory: Yes: Regular, Rales Gastrointestinal: Yes: WNL ...Rectal Exam: Yes: WNL Labs: CBC, BMP 04/08/18 08:30 04/08/18 08:30 Imaging - Results Cat Scan: Report Reviewed, Image Reviewed Problem List - Problems (1) Acute kidney injury Code(s): N17.9 - ACUTE KIDNEY FAILURE, UNSPECIFIED (2) COPD (chronic obstructive pulmonary disease) Code(s): J44.9 - CHRONIC OBSTRUCTIVE PULMONARY DISEASE, UNSPECIFIED (3) Chronic kidney disease Code(s): N18.9 - CHRONIC KIDNEY DISEASE, UNSPECIFIED (4) Lung infiltrate Code(s): R91.8 - OTHER NONSPECIFIC ABNORMAL FINDING OF LUNG FIELD (5) Shortness of breath Code(s): R06.02 - SHORTNESS OF BREATH Assessment/Plan New b/l patch infiltrates, acute vs. subacute associated with worsening renal function--diff dx included hypersensitivity pneumonitis, infectious etiology, Buster's, other vaculitis: -F/U bronch results; -If inconclusive and continued stable would consider RVATS biopsy this - -pt does not want procedure at this time. -Will follow.
[2018-04-10] MEDS: POLYETHYLENE GLYCOL 3350 119 GM BTL PO SCH ×2 (14:21→21:48)
--- NOTE | 2018-04-10 15:10 | ECHO ---
Name: TAM RUSHING Exam:Adult Echocardiogram Study Date: 04/10/2018 01:03 PM Age: 82 yrs Reason For Study: SOB Height: 67 in Weight: 134 lb BSA: 1.7 m2 MMode/2D Measurements & Calculations IVSd: 0.93 cm Ao root diam: 3.4 cm LVIDd: 5.5 cm LA dimension: 2.6 cm LVIDs: 3.1 cm ACS: 1.6 cm LVPWd: 0.82 cm IVSs: 1.2 cm LVPWs: 1.2 cm EDV(Teich): 146.3 ml ESV(Teich): 39.1 ml Doppler Measurements & Calculations MV E max mike: 85.9 cm/sec Ao V2 max: 163.5 cm/sec MV A max mike: 119.4 cm/sec Ao max P.7 mmHg MV E/A: 0.72 Ao V2 mean: 118.1 cm/sec Ao mean P.1 mmHg Ao V2 VTI: 37.2 cm TR max mike: 280.2 cm/sec PI end-d mike: 96.4 cm/sec TR max P.4 mmHg Med Peak E' Mike: 5.9 cm/sec Med E/e': 14.4 Lat Peak E' Mike: 8.5 cm/sec Lat E/e': 10.1 Procedure A complete two-dimensional transthoracic echocardiogram was performed (2D, M-mode, Doppler and color flow Doppler). The study was technically excellent with all images being of optimal quality. Left Ventricle The left ventricular size, thickness and function are normal. The transmitral spectral Doppler flow p attern is suggestive of impaired LV relaxation. The left ventricular wall motion is normal. Right Ventricle The right ventricle is normal in size and function. There is normal right ventricular wall thickness. Atria Normal left and right atrial size and function. Mitral Valve The mitral valve is normal in structure and function. There is trace mitral regurgitation. Tricuspid Valve The tricuspid valve is normal in structure and function. There is mild tricuspid regurgitation. Right ventricular systolic pressure is elevated at 41 mmhg. There is mild pulmonary hypertension. Aortic Valve The aortic valve is normal in structure and function. No aortic regurgitation is present. Pulmonic Valve The pulmonic valve is normal in structure and function. Trace pulmonic valvular regurgitation. Great Vessels The aortic root is normal size. Pericardium/Pleura There is no pericardial effusion. Interpretation Summary The left ventricular size, thickness and function are normal The right ventricle is normal in size and function. The mitral valve is normal in structure and function. There is mild pulmonary hypertension. Steven Dubon 04/10/2018 03:10 PM
[2018-04-10 15:14] LABS: ANTIGLOMERULAR BASEMENT MEN.AB 4 units (0-20)
--- NOTE | 2018-04-10 16:41 | PN ---
Progress Note, Physician History of Present Illness: Pt seen and examined at bedside. She is awake and appears comfortable. She has no complaints. - Current Medication List Current Medications: Active Medications Acetaminophen (Tylenol -) 650 mg PO Q6H PRN PRN Reason: FEVER Last Admin: 04/10/18 06:32 Dose: 650 mg Albuterol/Ipratropium (Duoneb -) 1 amp NEB RQID [facility] Last Admin: 04/10/18 15:57 Dose: 1 amp Benzocaine/Menthol (Cepacol Lozenge -) 1 each MM PRN PRN PRN Reason: SORE THROAT Last Admin: 04/08/18 21:56 Dose: 1 each Docusate Sodium (Colace -) 100 mg PO BID@0600,1800 [facility] Last Admin: 04/10/18 05:17 Dose: 100 mg Docusate Sodium (Colace -) 200 mg PO BID [facility] Last Admin: 04/10/18 14:21 Dose: 200 mg Guaifenesin/Codeine Phosphate (Robitussin Ac -) 5 ml PO Q8H PRN PRN Reason: COUGH Last Admin: 04/08/18 21:56 Dose: 5 ml Azithromycin (Zithromax 500mg Ivpb (Pre-Docked)) 500 mg in 250 mls @ 250 mls/ hr IVPB DAILY [facility] Last Admin: 04/10/18 09:52 Dose: 250 mls/hr Ceftriaxone Sodium 2 gm/ (Dextrose) 100 mls @ 200 mls/hr IVPB DAILY [facility]; Protocol Last Admin: 04/10/18 09:50 Dose: 200 mls/hr Sodium Chloride (Normal Saline -) 1,000 mls @ 75 mls/hr IV ASDIR [facility] Last Admin: 04/10/18 06:34 Dose: 75 mls/hr Magnesium Citrate (Citroma -) 300 ml PO Q48H PRN PRN Reason: CONSTIPATION Methylprednisolone Sodium Succinate (Solu-Medrol -) 40 mg IVPUSH BID [facility] Mometasone Furoate (Asmanex 110mcg -) 1 puff IH HS [facility] Last Admin: 04/09/18 21:31 Dose: 1 inh Pantoprazole Sodium (Protonix -) 40 mg PO DAILY [facility] Last Admin: 04/10/18 09:51 Dose: 40 mg Polyethylene Glycol (Miralax (For Daily Use) -) 17 gm PO BID [facility] Last Admin: 04/10/18 14:21 Dose: 17 gm - Objective Vital Signs: Vital Signs Temperature 97.4 F L 04/10/18 14:58 Pulse Rate 69 04/10/18 14:58 Respiratory Rate 18 04/10/18 14:58 Blood Pressure 134/83 04/10/18 14:58 O2 Sat by Pulse Oximetry (%) 98 04/09/18 21:00 Constitutional: Yes: Calm Eyes: Yes: Conjunctiva Clear HENT: Yes: Atraumatic Cardiovascular: Yes: S1, S2 Respiratory: Yes: CTA Bilaterally Gastrointestinal: Yes: Soft Genitourinary: Yes: WNL Musculoskeletal: Yes: WNL Edema: No Neurological: Yes: Oriented Psychiatric: Yes: Oriented Labs: CBC, BMP 04/08/18 08:30 04/08/18 08:30 INR, PTT INR 1.13 (0.83-1.09) H 04/06/18 11:30 Assessment/Plan Current Medications Generic Name Dose Route Start Last Admin Trade Name Freq PRN Reason Stop Dose Admin Acetaminophen 650 mg 04/07/18 20:27 04/10/18 06:32 Tylenol - PO 650 mg Q6H PRN Administration FEVER Albuterol/Ipratropium 1 amp 04/07/18 20:00 04/10/18 15:57 Duoneb - NEB 1 amp RQID [facility] Administration Benzocaine/Menthol 1 each 04/07/18 20:27 04/08/18 21:56 Cepacol Lozenge - MM 1 each PRN PRN Administration SORE THROAT Docusate Sodium 100 mg 04/07/18 18:00 04/10/18 05:17 Colace - PO 100 mg BID@0600,1800 [facility] Administration Docusate Sodium 200 mg 04/10/18 11:30 04/10/18 14:21 Colace - PO 200 mg BID [facility] Administration Guaifenesin/Codeine Phosphate 5 ml 04/07/18 17:45 04/08/18 21:56 Robitussin Ac - PO 5 ml Q8H PRN Administration COUGH Azithromycin 500 mg in 250 mls @ 250 mls/hr 04/08/18 10:00 04/10/18 09:52 Zithromax 500mg Ivpb (Pre-Docked) IVPB 250 mls/hr DAILY [facility] Administration Ceftriaxone Sodium 2 gm/ 100 mls @ 200 mls/hr 04/08/18 10:00 04/10/18 09:50 Dextrose IVPB 200 mls/hr DAILY [facility] Administration Protocol Sodium Chloride 1,000 mls @ 75 mls/hr 04/07/18 17:45 04/10/18 06:34 Normal Saline - IV 75 mls/hr ASDIR [facility] Administration Magnesium Citrate 300 ml 04/10/18 11:48 Citroma - PO Q48H PRN CONSTIPATION Methylprednisolone Sodium Succinate 40 mg 04/10/18 22:00 Solu-Medrol - IVPUSH BID [facility] Mometasone Furoate 1 puff 04/07/18 22:00 04/09/18 21:31 Asmanex 110mcg - IH 1 inh HS [facility] Administration Pantoprazole Sodium 40 mg 04/08/18 10:00 04/10/18 09:51 Protonix - PO 40 mg DAILY [facility] Administration Polyethylene Glycol 17 gm 04/10/18 11:30 04/10/18 14:21 Miralax (For Daily Use) - PO 17 gm BID [facility] Administration Impression 1. NANDINI 2. lung lesions 3. weight loss 4. cough 5. HTN 6. positive DERECK Plan - renal workup in progress - rheum input appreciated - encourage PO inteke - follow serologies - follow path results - discussed with pt and family Dr Casanova
[2018-04-10] MEDS: MOMETASONE FUROATE 110 MCG/IH INHALER IH SCH (21:47)
[2018-04-11 08:41] LABS: ANION GAP 7 MMOL/L (8-16); BLOOD UREA NITROGEN 27 mg/dL (7-18); CALCIUM 7.8 mg/dL (8.5-10.1); CHLORIDE 101 mmol/L (98-107); CO2 28 mmol/L (21-32); CREATININE 1.5 mg/dL (0.55-1.3); GLUCOSE,RANDOM 93 mg/dL (74-106); POTASSIUM 3.9 mmol/L (3.5-5.1); SODIUM 136 mmol/L (136-145)
[2018-04-11] MEDS: ALBUTEROL SO4 2.5/IPRATROPIUM 0.5 INH SOL 3 ML VIAL.NEB. NEB SCH ×4 (09:32→20:07)
--- NOTE | 2018-04-11 10:15 | PN ---
Progress Note (short form) - Note Progress Note: Reports continued improvement in breathing. Ambulated without O2 last night. No fevers or chills. No hemoptysis. Pathology still not reported. Intake & Output 04/07/18 04/08/18 04/09/18 04/10/18 23:59 23:59 23:59 23:59 Intake Total 2650 3425 3300 600 Balance 2650 3425 3300 600 Last Vital Signs Temp Pulse Resp BP Pulse Ox 97.4 F L 70 20 143/65 98 04/10/18 09:48 04/10/18 09:48 04/10/18 09:48 04/10/18 09:48 04/09/18 21:00 Active Medications Acetaminophen (Tylenol -) 650 mg PO Q6H PRN PRN Reason: FEVER Last Admin: 04/10/18 06:32 Dose: 650 mg Albuterol/Ipratropium (Duoneb -) 1 amp NEB RQID [facility] Last Admin: 04/10/18 11:22 Dose: 1 amp Benzocaine/Menthol (Cepacol Lozenge -) 1 each MM PRN PRN PRN Reason: SORE THROAT Last Admin: 04/08/18 21:56 Dose: 1 each Docusate Sodium (Colace -) 100 mg PO BID@0600,1800 [facility] Last Admin: 04/10/18 05:17 Dose: 100 mg Docusate Sodium (Colace -) 200 mg PO BID [facility] Guaifenesin/Codeine Phosphate (Robitussin Ac -) 5 ml PO Q8H PRN PRN Reason: COUGH Last Admin: 04/08/18 21:56 Dose: 5 ml Azithromycin (Zithromax 500mg Ivpb (Pre-Docked)) 500 mg in 250 mls @ 250 mls/ hr IVPB DAILY [facility] Last Admin: 04/10/18 09:52 Dose: 250 mls/hr Ceftriaxone Sodium 2 gm/ (Dextrose) 100 mls @ 200 mls/hr IVPB DAILY [facility]; Protocol Last Admin: 04/10/18 09:50 Dose: 200 mls/hr Sodium Chloride (Normal Saline -) 1,000 mls @ 75 mls/hr IV ASDIR [facility] Last Admin: 04/10/18 06:34 Dose: 75 mls/hr Magnesium Citrate (Citroma -) 300 ml PO Q48H PRN PRN Reason: CONSTIPATION Methylprednisolone Sodium Succinate (Solu-Medrol -) 40 mg IVPUSH BID [facility] Mometasone Furoate (Asmanex 110mcg -) 1 puff IH HS [facility] Last Admin: 04/09/18 21:31 Dose: 1 inh Pantoprazole Sodium (Protonix -) 40 mg PO DAILY [facility] Last Admin: 04/10/18 09:51 Dose: 40 mg Polyethylene Glycol (Miralax (For Daily Use) -) 17 gm PO BID [facility] Gen: NAD at rest Heart: RRR Lung: scattered basilar rhonchi Abd: soft, nontender Ext: no edema A/P Bilateral Pulmonary Infiltrates: Etiology to be determined: (?) HP R/O Interstitial Lung Disease Acute Kidney Injury PAH: RSVP 41mmHg Anemia - Medrol - CTS evaluation for possible RVAT noted - inhaled bronchodilators - f/u pathology - monitor urine output, creatinine - DVT prophylaxis - Incentive Spirometry - Ambulate ad xenia Dr Castellano
[2018-04-11] MEDS ORDERED: DEXTROSE 5%-WATER 100 ML IVPB ONE (10:22)
[2018-04-11] MEDS: AZITHROMYCIN IVPB 500 MG/250 ML BAG IVPB SCH (10:35)
[2018-04-11] MEDS: CEFTRIAXONE 2 GM in DEXTROSE 5%-WATER 100 ML IVPB SCH (10:37)
[2018-04-11] MEDS: PANTOPRAZOLE 40 MG TABLET (FP) PO SCH (10:38)
[2018-04-11] MEDS: DOCUSATE SODIUM 100 MG CAPSULE (FP) PO SCH ×2 (10:38→23:36)
[2018-04-11] MEDS: POLYETHYLENE GLYCOL 3350 119 GM BTL PO SCH ×2 (10:43→23:37)
[2018-04-11] MEDS: methylPREDNISolone NA SUCC 40 MG/1 ML VIAL IVPUSH SCH ×2 (10:43→23:36)
--- NOTE | 2018-04-11 10:44 | PN ---
Progress Note (short form) - Note Progress Note: s: sob stable. no chest pain, palps, dizziness, lightheadedness Current Medications Acetaminophen (Tylenol -) 650 mg PO Q6H PRN PRN Reason: FEVER Last Admin: 04/10/18 06:32 Dose: 650 mg Albuterol/Ipratropium (Duoneb -) 1 amp NEB RQID [facility] Last Admin: 04/11/18 09:32 Dose: 1 amp Benzocaine/Menthol (Cepacol Lozenge -) 1 each MM PRN PRN PRN Reason: SORE THROAT Last Admin: 04/08/18 21:56 Dose: 1 each Docusate Sodium (Colace -) 200 mg PO BID [facility] Last Admin: 04/10/18 21:48 Dose: Not Given Guaifenesin/Codeine Phosphate (Robitussin Ac -) 5 ml PO Q8H PRN PRN Reason: COUGH Last Admin: 04/08/18 21:56 Dose: 5 ml Azithromycin (Zithromax 500mg Ivpb (Pre-Docked)) 500 mg in 250 mls @ 250 mls/ hr IVPB DAILY [facility] Last Admin: 04/10/18 09:52 Dose: 250 mls/hr Ceftriaxone Sodium 2 gm/ (Dextrose) 100 mls @ 200 mls/hr IVPB DAILY [facility]; Protocol Last Admin: 04/10/18 09:50 Dose: 200 mls/hr Sodium Chloride (Normal Saline -) 1,000 mls @ 75 mls/hr IV ASDIR [facility] Last Admin: 04/10/18 21:48 Dose: Not Given Magnesium Citrate (Citroma -) 300 ml PO Q48H PRN PRN Reason: CONSTIPATION Methylprednisolone Sodium Succinate (Solu-Medrol -) 40 mg IVPUSH BID [facility] Last Admin: 04/10/18 21:49 Dose: 40 mg Mometasone Furoate (Asmanex 110mcg -) 1 puff IH HS [facility] Last Admin: 04/10/18 21:47 Dose: 1 inh Pantoprazole Sodium (Protonix -) 40 mg PO DAILY [facility] Last Admin: 04/10/18 09:51 Dose: 40 mg Polyethylene Glycol (Miralax (For Daily Use) -) 17 gm PO BID [facility] Last Admin: 04/10/18 21:48 Dose: 17 gm Vital Signs: Vital Signs Period Temp Pulse Resp BP Sys/Devries Pulse Ox Last 24 Hr 97.4 F-97.6 F 59-70 18-20 132-139/75-83 98 nad no jvd rrr ss2 no mrg cta bl nl eff aaox3 no le e/c/c no jaundice diaphoresis EKG: sinus rhythm, no ischemic changes echo 03/2018 nl LV/RV function, mild pulm HTN RVSP [address] chest multifocal jean-pierre upper and lower lung opacities likely infectious/ inflammatory infiltrates. mild jean-pierre lower lobe and min to mild jean-pierre upper lobe bronchiectasis with associated mild bronchial wall thickening Assessment/Plan 82F h/o HTN, COPD p/w shortness of breath, cough shortness of breath, cough - trop neg x 2, BNP not diagnostic of HF - less likely cardiac etiology - pulm, ID, rheum following, CTS evaluation for possible RVAT - improving - nl LV function on echo COPD - manage per pulm HTN - stable BP not on meds, monitor NANDINI - unclear baseline - nephrology consulted
--- NOTE | 2018-04-11 11:43 | PN ---
Progress Note (short form) - Note Progress Note: in bed comfortable s/p bronchoscopy breathing improved with steroids appreciate rhematology consult c/o constipation Vital Signs Period Temp Pulse Resp BP Sys/Devries Pulse Ox Last 24 Hr 97.4 F-97.6 F 59-70 18-20 132-139/75-83 98 Vital Signs Period Temp Pulse Resp BP Sys/Devries Pulse Ox Last 24 Hr 97.5 F-98.5 F 75-84 18-20 111-140/64-70 97 neck supple heart S1/S2 lungs grossly clear abd soft non tender ext no edema CBC, BMP 04/08/18 08:30 04/08/18 08:30 Microbiology 04/06/18 20:30 Blood - Peripheral Venous Blood Culture - Preliminary NO GROWTH OBTAINED AFTER 96 HOURS, INCUBATION TO CONTINUE FOR 1 DAYS. 04/06/18 18:30 Blood - Peripheral Venous Blood Culture - Preliminary NO GROWTH OBTAINED AFTER 96 HOURS, INCUBATION TO CONTINUE FOR 1 DAYS. 04/07/18 17:30 Bronchial Washings - Left Upper Lobe Gram Stain - Final 04/07/18 17:30 Bronchial Washings - Left Upper Lobe Bronchoalveolar Lavage Culture - Final NORMAL RESPIRATORY POLA 04/07/18 17:30 Bronchial Washings - Left Upper Lobe AFB Smear Concentration - Preliminary 04/07/18 17:30 Bronchial Washings - Left Upper Lobe Mycobacterial Culture - Preliminary 04/06/18 22:00 Sputum - Expectorated Gram Stain - Final 04/06/18 22:00 Sputum - Expectorated Sputum Culture - Final NORMAL RESPIRATORY POLA 04/07/18 17:30 Bronchial Washings - Left Upper Lobe JUSTA Preparation - Preliminary 04/07/18 17:30 Bronchial Washings - Left Upper Lobe Fungal Culture - Preliminary 04/06/18 19:02 Urine For Antigen Detection Legionella Antigen - Final 04/06/18 19:02 Urine For Antigen Detection Streptococcus pneumoniae Antigen (M - Final Active Medications Acetaminophen (Tylenol -) 650 mg PO Q6H PRN PRN Reason: FEVER Last Admin: 04/10/18 06:32 Dose: 650 mg Albuterol/Ipratropium (Duoneb -) 1 amp NEB RQID [facility] Last Admin: 04/11/18 09:32 Dose: 1 amp Benzocaine/Menthol (Cepacol Lozenge -) 1 each MM PRN PRN PRN Reason: SORE THROAT Last Admin: 04/08/18 21:56 Dose: 1 each Docusate Sodium (Colace -) 200 mg PO BID [facility] Last Admin: 04/11/18 10:38 Dose: 200 mg Guaifenesin/Codeine Phosphate (Robitussin Ac -) 5 ml PO Q8H PRN PRN Reason: COUGH Last Admin: 04/08/18 21:56 Dose: 5 ml Azithromycin (Zithromax 500mg Ivpb (Pre-Docked)) 500 mg in 250 mls @ 250 mls/ hr IVPB DAILY [facility] Last Admin: 04/11/18 10:35 Dose: 250 mls/hr Ceftriaxone Sodium 2 gm/ (Dextrose) 100 mls @ 200 mls/hr IVPB DAILY [facility]; Protocol Last Admin: 04/11/18 10:37 Dose: 200 mls/hr Sodium Chloride (Normal Saline -) 1,000 mls @ 75 mls/hr IV ASDIR [facility] Last Admin: 04/10/18 21:48 Dose: Not Given Magnesium Citrate (Citroma -) 300 ml PO Q48H PRN PRN Reason: CONSTIPATION Methylprednisolone Sodium Succinate (Solu-Medrol -) 40 mg IVPUSH BID [facility] Last Admin: 04/11/18 10:43 Dose: 40 mg Mometasone Furoate (Asmanex 110mcg -) 1 puff IH HS [facility] Last Admin: 04/10/18 21:47 Dose: 1 inh Pantoprazole Sodium (Protonix -) 40 mg PO DAILY [facility] Last Admin: 04/11/18 10:38 Dose: 40 mg Polyethylene Glycol (Miralax (For Daily Use) -) 17 gm PO BID [facility] Last Admin: 04/11/18 10:43 Dose: 17 gm Assmt / plan # dyspnea bilateral pulmonary infiltrates continue abx / steroids / PPi / nebulizer s/p bronchoscopy await bx / c/s thoracic for wedge bx appreciate Rhematology and pulmonary followup # acute on CKD IV fluids work up in progress appreciate nephrology follow up #constipation Miralax / colace enema PRN /citoma PRN # anemia work -up Problem List - Problems (1) COPD (chronic obstructive pulmonary disease) Code(s): J44.9 - CHRONIC OBSTRUCTIVE PULMONARY DISEASE, UNSPECIFIED (2) Shortness of breath (3) HTN (hypertension) Code(s): I10 - ESSENTIAL (PRIMARY) HYPERTENSION (4) Weight decreased Code(s): R63.4 - ABNORMAL WEIGHT LOSS (5) Anemia Code(s): D64.9 - ANEMIA, UNSPECIFIED (6) Chronic kidney disease Code(s): N18.9 - CHRONIC KIDNEY DISEASE, UNSPECIFIED
[2018-04-11] MEDS ORDERED: MINERAL OIL ENEMA 133 ML ENEMA PR ONE (14:55)
--- NOTE | 2018-04-11 16:34 | PN ---
Progress Note, Physician History of Present Illness: Pt seen and examined at bedside. She is awake and alert. She denies shortness of breath. - Current Medication List Current Medications: Active Medications Acetaminophen (Tylenol -) 650 mg PO Q6H PRN PRN Reason: FEVER Last Admin: 04/10/18 06:32 Dose: 650 mg Albuterol/Ipratropium (Duoneb -) 1 amp NEB RQID [facility] Last Admin: 04/11/18 12:25 Dose: 1 amp Benzocaine/Menthol (Cepacol Lozenge -) 1 each MM PRN PRN PRN Reason: SORE THROAT Last Admin: 04/08/18 21:56 Dose: 1 each Docusate Sodium (Colace -) 200 mg PO BID [facility] Last Admin: 04/11/18 10:38 Dose: 200 mg Guaifenesin/Codeine Phosphate (Robitussin Ac -) 5 ml PO Q8H PRN PRN Reason: COUGH Last Admin: 04/08/18 21:56 Dose: 5 ml Azithromycin (Zithromax 500mg Ivpb (Pre-Docked)) 500 mg in 250 mls @ 250 mls/ hr IVPB DAILY [facility] Last Admin: 04/11/18 10:35 Dose: 250 mls/hr Ceftriaxone Sodium 2 gm/ (Dextrose) 100 mls @ 200 mls/hr IVPB DAILY [facility]; Protocol Last Admin: 04/11/18 10:37 Dose: 200 mls/hr Sodium Chloride (Normal Saline -) 1,000 mls @ 75 mls/hr IV ASDIR [facility] Last Admin: 04/10/18 21:48 Dose: Not Given Magnesium Citrate (Citroma -) 300 ml PO Q48H PRN PRN Reason: CONSTIPATION Methylprednisolone Sodium Succinate (Solu-Medrol -) 40 mg IVPUSH BID [facility] Last Admin: 04/11/18 10:43 Dose: 40 mg Mometasone Furoate (Asmanex 110mcg -) 1 puff IH HS [facility] Last Admin: 04/10/18 21:47 Dose: 1 inh Pantoprazole Sodium (Protonix -) 40 mg PO DAILY [facility] Last Admin: 04/11/18 10:38 Dose: 40 mg Polyethylene Glycol (Miralax (For Daily Use) -) 17 gm PO BID [facility] Last Admin: 04/11/18 10:43 Dose: 17 gm - Objective Vital Signs: Vital Signs Temperature 98.8 F 04/11/18 14:49 Pulse Rate 69 04/11/18 14:49 Respiratory Rate 20 04/11/18 14:49 Blood Pressure 121/65 04/11/18 14:49 O2 Sat by Pulse Oximetry (%) 98 04/10/18 21:00 Constitutional: Yes: Calm Eyes: Yes: Conjunctiva Clear Cardiovascular: Yes: S1, S2 Respiratory: Yes: CTA Bilaterally Gastrointestinal: Yes: Soft Genitourinary: Yes: WNL Musculoskeletal: Yes: WNL Edema: No Neurological: Yes: Oriented Psychiatric: Yes: Oriented Labs: CBC, BMP 04/08/18 08:30 04/11/18 07:22 INR, PTT INR 1.13 (0.83-1.09) H 04/06/18 11:30 Assessment/Plan Current Medications Generic Name Dose Route Start Last Admin Trade Name Freq PRN Reason Stop Dose Admin Acetaminophen 650 mg 04/07/18 20:27 04/10/18 06:32 Tylenol - PO 650 mg Q6H PRN Administration FEVER Albuterol/Ipratropium 1 amp 04/07/18 20:00 04/11/18 12:25 Duoneb - NEB 1 amp RQID [facility] Administration Benzocaine/Menthol 1 each 04/07/18 20:27 04/08/18 21:56 Cepacol Lozenge - MM 1 each PRN PRN Administration SORE THROAT Docusate Sodium 200 mg 04/10/18 11:30 04/11/18 10:38 Colace - PO 200 mg BID [facility] Administration Guaifenesin/Codeine Phosphate 5 ml 04/07/18 17:45 04/08/18 21:56 Robitussin Ac - PO 5 ml Q8H PRN Administration COUGH Azithromycin 500 mg in 250 mls @ 250 mls/hr 04/08/18 10:00 04/11/18 10:35 Zithromax 500mg Ivpb (Pre-Docked) IVPB 250 mls/hr DAILY [facility] Administration Ceftriaxone Sodium 2 gm/ 100 mls @ 200 mls/hr 04/08/18 10:00 04/11/18 10:37 Dextrose IVPB 200 mls/hr DAILY [facility] Administration Protocol Sodium Chloride 1,000 mls @ 75 mls/hr 04/07/18 17:45 04/10/18 21:48 Normal Saline - IV Not Given ASDIR [facility] Magnesium Citrate 300 ml 04/10/18 11:48 Citroma - PO Q48H PRN CONSTIPATION Methylprednisolone Sodium Succinate 40 mg 04/10/18 22:00 04/11/18 10:43 Solu-Medrol - IVPUSH 40 mg BID [facility] Administration Mometasone Furoate 1 puff 04/07/18 22:00 04/10/18 21:47 Asmanex 110mcg - IH 1 inh HS [facility] Administration Pantoprazole Sodium 40 mg 04/08/18 10:00 04/11/18 10:38 Protonix - PO 40 mg DAILY [facility] Administration Polyethylene Glycol 17 gm 04/10/18 11:30 04/11/18 10:43 Miralax (For Daily Use) - PO 17 gm BID [facility] Administration Laboratory Tests 04/07/18 04/07/18 07:30 12:36 DERECK Homogeneous Pattern 1:160 H Glomerular Base Memb Ab 4 Impression 1. NANDINI 2. lung lesions 3. weight loss 4. cough 5. HTN 6. positive DERECK Plan - renal function is improving - repeat labs in am - renal workup in progress - encourage PO intake - follow path results Dr Casanova
[2018-04-11] MEDS: SODIUM CHLORIDE 1,000 ML IV SCH (23:36)
[2018-04-11] MEDS: MOMETASONE FUROATE 110 MCG/IH INHALER IH SCH (23:37)
[2018-04-12] MEDS: ALBUTEROL SO4 2.5/IPRATROPIUM 0.5 INH SOL 3 ML VIAL.NEB. NEB SCH ×4 (07:04→21:20)
[2018-04-12 07:45] LABS: ANION GAP 7 MMOL/L (8-16); BLOOD UREA NITROGEN 25 mg/dL (7-18); CALCIUM 7.4 mg/dL (8.5-10.1); CHLORIDE 104 mmol/L (98-107); CO2 29 mmol/L (21-32); CREATININE 1.4 mg/dL (0.55-1.3); GLUCOSE,RANDOM 123 mg/dL (74-106); POTASSIUM 3.9 mmol/L (3.5-5.1); SODIUM 140 mmol/L (136-145)
[2018-04-12 07:47] LABS: BASO % 0.1 % (0-2.0); HEMATOCRIT 25.5 % (32.4-45.2); HEMOGLOBIN 8.3 GM/dL (10.7-15.3); LYMPH % 8.5 % (8-40); MCH 28.5 pg (25.7-33.7); MCHC 32.6 g/dl (32.0-36.0); MEAN CELL VOLUME 87.6 fl (80-96); MEAN PLT VOLUME 7.1 fl (7.5-11.1); MONO % 4.5 % (3.8-10.2); NEUT % 86.9 % (42.8-82.8); PLATELET COUNT 449 K/MM3 (134-434); RBC 2.91 M/mm3 (3.60-5.2); RDW 13.8 % (11.6-15.6)
[2018-04-12] MEDS ORDERED: DEXTROSE 5%-WATER 100 ML IVPB ONE (08:53)
[2018-04-12] MEDS: PANTOPRAZOLE 40 MG TABLET (FP) PO SCH (09:11)
[2018-04-12] MEDS: POLYETHYLENE GLYCOL 3350 119 GM BTL PO SCH ×2 (09:12→21:58)
[2018-04-12] MEDS: DOCUSATE SODIUM 100 MG CAPSULE (FP) PO SCH ×2 (09:12→21:58)
[2018-04-12] MEDS: guaiFENesin/CODEINE 5 ML UNIT-DOSE CUPS PO PRN (09:12)
[2018-04-12] MEDS: methylPREDNISolone NA SUCC 40 MG/1 ML VIAL IVPUSH SCH ×2 (09:13→21:58)
[2018-04-12] MEDS: CEFTRIAXONE 2 GM in DEXTROSE 5%-WATER 100 ML IVPB SCH (09:13)
[2018-04-12] MEDS: AZITHROMYCIN IVPB 500 MG/250 ML BAG IVPB SCH (11:29)
[2018-04-12 12:13] LABS: RNP ANTIBODIES 0.4 AI (0.0-0.9)
--- NOTE | 2018-04-12 12:16 | PN ---
Progress Note, Physician History of Present Illness: pulmonary alet,no distress,-sob,-jackson , cough significantly improved,good appetite. renal function improving - Current Medication List Current Medications: Active Medications Acetaminophen (Tylenol -) 650 mg PO Q6H PRN PRN Reason: FEVER Last Admin: 04/10/18 06:32 Dose: 650 mg Albuterol/Ipratropium (Duoneb -) 1 amp NEB RQID [facility] Last Admin: 04/12/18 07:04 Dose: 1 amp Benzocaine/Menthol (Cepacol Lozenge -) 1 each MM PRN PRN PRN Reason: SORE THROAT Last Admin: 04/08/18 21:56 Dose: 1 each Docusate Sodium (Colace -) 200 mg PO BID [facility] Last Admin: 04/12/18 09:12 Dose: 200 mg Guaifenesin/Codeine Phosphate (Robitussin Ac -) 5 ml PO Q8H PRN PRN Reason: COUGH Last Admin: 04/12/18 09:12 Dose: 5 ml Azithromycin (Zithromax 500mg Ivpb (Pre-Docked)) 500 mg in 250 mls @ 250 mls/ hr IVPB DAILY [facility] Last Admin: 04/12/18 11:29 Dose: 250 mls/hr Ceftriaxone Sodium 2 gm/ (Dextrose) 100 mls @ 200 mls/hr IVPB DAILY [facility]; Protocol Last Admin: 04/12/18 09:13 Dose: 200 mls/hr Sodium Chloride (Normal Saline -) 1,000 mls @ 75 mls/hr IV ASDIR [facility] Last Admin: 04/11/18 23:36 Dose: 75 mls/hr Magnesium Citrate (Citroma -) 300 ml PO Q48H PRN PRN Reason: CONSTIPATION Methylprednisolone Sodium Succinate (Solu-Medrol -) 40 mg IVPUSH BID [facility] Last Admin: 04/12/18 09:13 Dose: 40 mg Mometasone Furoate (Asmanex 110mcg -) 1 puff IH HS [facility] Last Admin: 04/11/18 23:37 Dose: 1 inh Pantoprazole Sodium (Protonix -) 40 mg PO DAILY [facility] Last Admin: 04/12/18 09:11 Dose: 40 mg Polyethylene Glycol (Miralax (For Daily Use) -) 17 gm PO BID [facility] Last Admin: 04/12/18 09:12 Dose: 17 gm - Objective Vital Signs: Vital Signs Temperature 97.8 F 04/12/18 10:00 Pulse Rate 72 04/12/18 10:00 Respiratory Rate 18 04/12/18 10:00 Blood Pressure 129/70 04/12/18 10:00 O2 Sat by Pulse Oximetry (%) 97 04/12/18 09:55 Constitutional: Yes: Well Nourished, Calm Eyes: Yes: WNL HENT: Yes: WNL Neck: Yes: WNL Cardiovascular: Yes: Regular Rate and Rhythm, S1, S2 Respiratory: Yes: CTA Bilaterally Gastrointestinal: Yes: Normal Bowel Sounds, Soft Extremities: Yes: WNL Edema: No Labs: CBC, BMP 04/12/18 07:00 04/12/18 07:00 INR, PTT INR 1.13 (0.83-1.09) H 04/06/18 11:30 Problem List - Problems (1) Acute kidney injury Code(s): N17.9 - ACUTE KIDNEY FAILURE, UNSPECIFIED (2) Anemia Code(s): D64.9 - ANEMIA, UNSPECIFIED (3) COPD (chronic obstructive pulmonary disease) Code(s): J44.9 - CHRONIC OBSTRUCTIVE PULMONARY DISEASE, UNSPECIFIED (4) HTN (hypertension) Code(s): I10 - ESSENTIAL (PRIMARY) HYPERTENSION (5) Weight decreased Code(s): R63.4 - ABNORMAL WEIGHT LOSS Assessment/Plan IMP BILATERAL INFILTRATES CLINICALLY IMPROVING NANDINI IMPROVING ANEMIA PLAN ABX PER ID STEROIDS INHALED BRONCHODILATORS IVF MONITOR LYTES,RENALFUNCTION,CBC O2 PT REFUSES VAT DR CORNELL Problem List - Problems (1) Acute kidney injury Code(s): N17.9 - ACUTE KIDNEY FAILURE, UNSPECIFIED (2) Anemia Code(s): D64.9 - ANEMIA, UNSPECIFIED (3) COPD (chronic obstructive pulmonary disease) Code(s): J44.9 - CHRONIC OBSTRUCTIVE PULMONARY DISEASE, UNSPECIFIED (4) HTN (hypertension) Code(s): I10 - ESSENTIAL (PRIMARY) HYPERTENSION (5) Weight decreased Code(s): R63.4 - ABNORMAL WEIGHT LOSS
[2018-04-12 14:41] VITALS: BMI 20.9
[2018-04-12] MEDS: SODIUM CHLORIDE 1,000 ML IV SCH ×2 (14:46→17:53)
--- NOTE | 2018-04-12 16:21 | PN ---
Progress Note (short form) - Note Progress Note: 82 y/o female found alert and oriented x 3 [address] in bed. CRAIG. Reports bronchoscopy done. Vital Signs Period Temp Pulse Resp BP Sys/Devries Pulse Ox Last 24 Hr 97.7 F-98.4 F 66-89 18-20 113-138/68-76 97-98 CBC, BMP 04/12/18 07:00 04/12/18 07:00 HEENT-Normocephalic Neck-Supple Lungs- CTAB Heart- S1/S2 Abd- Soft, nt Ext-No LE edema Active Medications Acetaminophen (Tylenol -) 650 mg PO Q6H PRN PRN Reason: FEVER Last Admin: 04/10/18 06:32 Dose: 650 mg Albuterol/Ipratropium (Duoneb -) 1 amp NEB RQID [facility] Last Admin: 04/12/18 12:57 Dose: 1 amp Benzocaine/Menthol (Cepacol Lozenge -) 1 each MM PRN PRN PRN Reason: SORE THROAT Last Admin: 04/08/18 21:56 Dose: 1 each Docusate Sodium (Colace -) 200 mg PO BID [facility] Last Admin: 04/12/18 09:12 Dose: 200 mg Guaifenesin/Codeine Phosphate (Robitussin Ac -) 5 ml PO Q8H PRN PRN Reason: COUGH Last Admin: 04/12/18 09:12 Dose: 5 ml Azithromycin (Zithromax 500mg Ivpb (Pre-Docked)) 500 mg in 250 mls @ 250 mls/ hr IVPB DAILY [facility] Last Admin: 04/12/18 11:29 Dose: 250 mls/hr Ceftriaxone Sodium 2 gm/ (Dextrose) 100 mls @ 200 mls/hr IVPB DAILY [facility]; Protocol Last Admin: 04/12/18 09:13 Dose: 200 mls/hr Sodium Chloride (Normal Saline -) 1,000 mls @ 75 mls/hr IV ASDIR [facility] Last Admin: 04/12/18 14:46 Dose: 75 mls/hr Magnesium Citrate (Citroma -) 300 ml PO Q48H PRN PRN Reason: CONSTIPATION Methylprednisolone Sodium Succinate (Solu-Medrol -) 40 mg IVPUSH BID [facility] Last Admin: 04/12/18 09:13 Dose: 40 mg Mometasone Furoate (Asmanex 110mcg -) 1 puff IH HS [facility] Last Admin: 04/11/18 23:37 Dose: 1 inh Pantoprazole Sodium (Protonix -) 40 mg PO DAILY [facility] Last Admin: 04/12/18 09:11 Dose: 40 mg Polyethylene Glycol (Miralax (For Daily Use) -) 17 gm PO BID [facility] Last Admin: 04/12/18 09:12 Dose: 17 gm Assmt / plan # dyspnea increased pulm changes continue abx / steroids / PPI/ nebulizer s/p bronchoscopy await bx / c/s # acute on CKD IV fluids work up in progress appreciate nephrology follow up #constipation Reports small BM this am Cont Miralax / colace enema PRN /citoma PRN # anemia work -up Problem List - Problems (1) COPD (chronic obstructive pulmonary disease) Code(s): J44.9 - CHRONIC OBSTRUCTIVE PULMONARY DISEASE, UNSPECIFIED (2) Shortness of breath (3) HTN (hypertension) Code(s): I10 - ESSENTIAL (PRIMARY) HYPERTENSION (4) Weight decreased Code(s): R63.4 - ABNORMAL WEIGHT LOSS (5) Anemia Code(s): D64.9 - ANEMIA, UNSPECIFIED (6) Chronic kidney disease Code(s): N18.9 - CHRONIC KIDNEY DISEASE, UNSPECIFIED
--- NOTE | 2018-04-12 16:39 | PN ---
Progress Note (short form) - Note Progress Note: s: sob improving, no chest pain, palps, dizziness, lightheadedness Current Medications Generic Name Dose Route Start Last Admin Trade Name Freq PRN Reason Stop Dose Admin Acetaminophen 650 mg 04/07/18 20:27 04/10/18 06:32 Tylenol - PO 650 mg Q6H PRN Administration FEVER Albuterol/Ipratropium 1 amp 04/07/18 20:00 04/12/18 12:57 Duoneb - NEB 1 amp RQID [facility] Administration Benzocaine/Menthol 1 each 04/07/18 20:27 04/08/18 21:56 Cepacol Lozenge - MM 1 each PRN PRN Administration SORE THROAT Docusate Sodium 200 mg 04/10/18 11:30 04/12/18 09:12 Colace - PO 200 mg BID [facility] Administration Guaifenesin/Codeine Phosphate 5 ml 04/07/18 17:45 04/12/18 09:12 Robitussin Ac - PO 5 ml Q8H PRN Administration COUGH Azithromycin 500 mg in 250 mls @ 250 mls/hr 04/08/18 10:00 04/12/18 11:29 Zithromax 500mg Ivpb (Pre-Docked) IVPB 250 mls/hr DAILY [facility] Administration Ceftriaxone Sodium 2 gm/ 100 mls @ 200 mls/hr 04/08/18 10:00 04/12/18 09:13 Dextrose IVPB 200 mls/hr DAILY [facility] Administration Protocol Sodium Chloride 1,000 mls @ 75 mls/hr 04/07/18 17:45 04/12/18 14:46 Normal Saline - IV 75 mls/hr ASDIR [facility] Administration Magnesium Citrate 300 ml 04/10/18 11:48 Citroma - PO Q48H PRN CONSTIPATION Methylprednisolone Sodium Succinate 40 mg 04/10/18 22:00 04/12/18 09:13 Solu-Medrol - IVPUSH 40 mg BID [facility] Administration Mometasone Furoate 1 puff 04/07/18 22:00 04/11/18 23:37 Asmanex 110mcg - IH 1 inh HS [facility] Administration Pantoprazole Sodium 40 mg 04/08/18 10:00 04/12/18 09:11 Protonix - PO 40 mg DAILY [facility] Administration Polyethylene Glycol 17 gm 04/10/18 11:30 04/12/18 09:12 Miralax (For Daily Use) - PO 17 gm BID [facility] Administration Vital Signs: Vital Signs Period Temp Pulse Resp BP Sys/Devries Pulse Ox Last 24 Hr 97.7 F-98.4 F 66-89 18-20 113-138/68-76 97-98 nad no jvd rrr ss2 no mrg cta bl nl eff aaox3 no le e/c/c no jaundice diaphoresis CBC, BMP 04/12/18 07:00 04/12/18 07:00 EKG: sinus rhythm, no ischemic changes echo 03/2018 nl LV/RV function, mild pulm HTN RVSP [address] chest multifocal jean-pierre upper and lower lung opacities likely infectious/ inflammatory infiltrates. mild jean-pierre lower lobe and min to mild jean-pierre upper lobe bronchiectasis with associated mild bronchial wall thickening Assessment/Plan 82F h/o HTN, COPD p/w shortness of breath, cough shortness of breath, cough - trop neg x 2, BNP not diagnostic of HF - less likely cardiac etiology - pulm, ID, rheum following, CTS evaluation for possible RVAT - improving - nl LV function on echo COPD - manage per pulm HTN - stable BP not on meds, monitor NANDINI - unclear baseline - nephrology consulted
--- NOTE | 2018-04-12 16:41 | PN ---
Progress Note, Physician History of Present Illness: Pt seen and examined at bedside. She is awake and alert. She denies shortness of breath. - Current Medication List Current Medications: Active Medications Acetaminophen (Tylenol -) 650 mg PO Q6H PRN PRN Reason: FEVER Last Admin: 04/10/18 06:32 Dose: 650 mg Albuterol/Ipratropium (Duoneb -) 1 amp NEB RQID [facility] Last Admin: 04/12/18 12:57 Dose: 1 amp Benzocaine/Menthol (Cepacol Lozenge -) 1 each MM PRN PRN PRN Reason: SORE THROAT Last Admin: 04/08/18 21:56 Dose: 1 each Docusate Sodium (Colace -) 200 mg PO BID [facility] Last Admin: 04/12/18 09:12 Dose: 200 mg Guaifenesin/Codeine Phosphate (Robitussin Ac -) 5 ml PO Q8H PRN PRN Reason: COUGH Last Admin: 04/12/18 09:12 Dose: 5 ml Azithromycin (Zithromax 500mg Ivpb (Pre-Docked)) 500 mg in 250 mls @ 250 mls/ hr IVPB DAILY [facility] Last Admin: 04/12/18 11:29 Dose: 250 mls/hr Ceftriaxone Sodium 2 gm/ (Dextrose) 100 mls @ 200 mls/hr IVPB DAILY [facility]; Protocol Last Admin: 04/12/18 09:13 Dose: 200 mls/hr Sodium Chloride (Normal Saline -) 1,000 mls @ 75 mls/hr IV ASDIR [facility] Last Admin: 04/12/18 14:46 Dose: 75 mls/hr Magnesium Citrate (Citroma -) 300 ml PO Q48H PRN PRN Reason: CONSTIPATION Methylprednisolone Sodium Succinate (Solu-Medrol -) 40 mg IVPUSH BID [facility] Last Admin: 04/12/18 09:13 Dose: 40 mg Mometasone Furoate (Asmanex 110mcg -) 1 puff IH HS [facility] Last Admin: 04/11/18 23:37 Dose: 1 inh Pantoprazole Sodium (Protonix -) 40 mg PO DAILY [facility] Last Admin: 04/12/18 09:11 Dose: 40 mg Polyethylene Glycol (Miralax (For Daily Use) -) 17 gm PO BID [facility] Last Admin: 04/12/18 09:12 Dose: 17 gm - Objective Vital Signs: Vital Signs Temperature 98.1 F 04/12/18 14:08 Pulse Rate 81 04/12/18 14:08 Respiratory Rate 20 04/12/18 14:08 Blood Pressure 133/76 04/12/18 14:08 O2 Sat by Pulse Oximetry (%) 97 04/12/18 09:55 Constitutional: Yes: Calm Eyes: Yes: Conjunctiva Clear HENT: Yes: Atraumatic Neck: Yes: Supple Cardiovascular: Yes: S1, S2 Respiratory: Yes: CTA Bilaterally Gastrointestinal: Yes: Soft Genitourinary: Yes: WNL Musculoskeletal: Yes: WNL Edema: No Neurological: Yes: Oriented Psychiatric: Yes: Oriented Labs: CBC, BMP 04/12/18 07:00 04/12/18 07:00 INR, PTT INR 1.13 (0.83-1.09) H 04/06/18 11:30 Assessment/Plan Current Medications Generic Name Dose Route Start Last Admin Trade Name Freq PRN Reason Stop Dose Admin Acetaminophen 650 mg 04/07/18 20:27 04/10/18 06:32 Tylenol - PO 650 mg Q6H PRN Administration FEVER Albuterol/Ipratropium 1 amp 04/07/18 20:00 04/12/18 12:57 Duoneb - NEB 1 amp RQID [facility] Administration Benzocaine/Menthol 1 each 04/07/18 20:27 04/08/18 21:56 Cepacol Lozenge - MM 1 each PRN PRN Administration SORE THROAT Docusate Sodium 200 mg 04/10/18 11:30 04/12/18 09:12 Colace - PO 200 mg BID [facility] Administration Guaifenesin/Codeine Phosphate 5 ml 04/07/18 17:45 04/12/18 09:12 Robitussin Ac - PO 5 ml Q8H PRN Administration COUGH Azithromycin 500 mg in 250 mls @ 250 mls/hr 04/08/18 10:00 04/12/18 11:29 Zithromax 500mg Ivpb (Pre-Docked) IVPB 250 mls/hr DAILY [facility] Administration Ceftriaxone Sodium 2 gm/ 100 mls @ 200 mls/hr 04/08/18 10:00 04/12/18 09:13 Dextrose IVPB 200 mls/hr DAILY [facility] Administration Protocol Sodium Chloride 1,000 mls @ 75 mls/hr 12/21/18 17:45 04/12/18 14:46 Normal Saline - IV 75 mls/hr ASDIR [facility] Administration Magnesium Citrate 300 ml 04/10/18 11:48 Citroma - PO Q48H PRN CONSTIPATION Methylprednisolone Sodium Succinate 40 mg 04/10/18 22:00 04/12/18 09:13 Solu-Medrol - IVPUSH 40 mg BID [facility] Administration Mometasone Furoate 1 puff 04/07/18 22:00 04/11/18 23:37 Asmanex 110mcg - IH 1 inh HS [facility] Administration Pantoprazole Sodium 40 mg 04/08/18 10:00 04/12/18 09:11 Protonix - PO 40 mg DAILY [facility] Administration Polyethylene Glycol 17 gm 04/10/18 11:30 04/12/18 09:12 Miralax (For Daily Use) - PO 17 gm BID [facility] Administration Impression 1. NANDINI 2. lung lesions 3. weight loss 4. cough 5. HTN 6. positive DERECK Plan - renal function continues to improve - repeat labs in am - follow up bronch pathology - renal workup in progress - encourage PO intake Dr Casanova
--- NOTE | 2018-04-12 17:46 | PATH ---
Cytology Non-Gynecological Report Patient Name: TAM RUSHING Med. Rec. #: [id number] /Age/Gender: 1935 (Age: 82) / F Account: [id number] Location: [address] [place] [address]/[facility] Taken: 04/07/2018 Received: 04/10/2018 Reported: 04/12/2018 Physicians: Crystal Nair MD Specimen(s) Received BRONCHIAL WASHINGS Clinical History Interstitial lung disease Final Diagnosis LUNG, BRONCHIAL WASHING: SATISFACTORY FOR EVALUATION. NO MALIGNANT CELLS IDENTIFIED. REACTIVE BRONCHIAL CELLS AND ALVEOLAR MACROPHAGES PRESENT, IN A BACKGROUND OF ACUTE INFLAMMATORY EXUDATE AND BLOOD MATERIAL. Electronically Signed Sarah Weinberg M.D. Gross Description Approximately 40 cc of yellow fluid received fresh. One slide and one block prepared.
[2018-04-12] MEDS ORDERED: PT OWN MED DRAWER 7, Y5N ONE ×2 (21:38→21:39)
[2018-04-12] MEDS: MOMETASONE FUROATE 110 MCG/IH INHALER IH SCH (21:58)
[2018-04-13] MEDS: SODIUM CHLORIDE 1,000 ML IV SCH ×2 (06:25→16:52)
[2018-04-13 07:51] LABS: ANION GAP 5 MMOL/L (8-16); BLOOD UREA NITROGEN 22 mg/dL (7-18); CALCIUM 7.6 mg/dL (8.5-10.1); CHLORIDE 102 mmol/L (98-107); CO2 30 mmol/L (21-32); CREATININE 1.3 mg/dL (0.55-1.3); GLUCOSE,RANDOM 109 mg/dL (74-106); SODIUM 137 mmol/L (136-145)
[2018-04-13] MEDS: ALBUTEROL SO4 2.5/IPRATROPIUM 0.5 INH SOL 3 ML VIAL.NEB. NEB SCH ×4 (08:10→20:56)
[2018-04-13 10:33] LABS: BASO % 0.2 % (0-2.0); EOS % 0.3 % (0-4.5); HEMATOCRIT 26.8 % (32.4-45.2); HEMOGLOBIN 8.6 GM/dL (10.7-15.3); LYMPH % 15.8 % (8-40); MCH 28.7 pg (25.7-33.7); MCHC 32.1 g/dl (32.0-36.0); MEAN CELL VOLUME 89.3 fl (80-96); MONO % 7.3 % (3.8-10.2); NEUT % 76.4 % (42.8-82.8); PLATELET COUNT 424 K/MM3 (134-434); RDW 14.2 % (11.6-15.6); WHITE BLOOD COUNT 14.3 K/mm3 (4.0-10.0)
[2018-04-13] MEDS ORDERED: DEXTROSE 5%-WATER 100 ML IVPB ONE (10:43)
[2018-04-13] MEDS: AZITHROMYCIN IVPB 500 MG/250 ML BAG IVPB SCH (10:55)
[2018-04-13] MEDS: PANTOPRAZOLE 40 MG TABLET (FP) PO SCH (10:55)
[2018-04-13] MEDS: CEFTRIAXONE 2 GM in DEXTROSE 5%-WATER 100 ML IVPB SCH (10:55)
[2018-04-13] MEDS: methylPREDNISolone NA SUCC 40 MG/1 ML VIAL IVPUSH SCH ×2 (10:55→21:14)
[2018-04-13] MEDS: DOCUSATE SODIUM 100 MG CAPSULE (FP) PO SCH ×2 (10:59→21:10)
[2018-04-13] MEDS: POLYETHYLENE GLYCOL 3350 119 GM BTL PO SCH ×2 (10:59→21:14)
[2018-04-13 11:20] LABS: ANION GAP 6 MMOL/L (8-16); BLOOD UREA NITROGEN 23 mg/dL (7-18); CHLORIDE 100 mmol/L (98-107); CO2 31 mmol/L (21-32); CREATININE 1.4 mg/dL (0.55-1.3); GLUCOSE,RANDOM 97 mg/dL (74-106); POTASSIUM 3.7 mmol/L (3.5-5.1); SODIUM 137 mmol/L (136-145)
--- NOTE | 2018-04-13 11:41 | PN ---
Progress Note (short form) - Note Progress Note: s: sob resolved no chest pain, palps, dizziness, lightheadedness Current Medications Generic Name Dose Route Start Last Admin Trade Name Freq PRN Reason Stop Dose Admin Acetaminophen 650 mg 04/07/18 20:27 04/10/18 06:32 Tylenol - PO 650 mg Q6H PRN Administration FEVER Albuterol/Ipratropium 1 amp 04/07/18 20:00 04/13/18 08:10 Duoneb - NEB 1 amp RQID [facility] Administration Benzocaine/Menthol 1 each 04/07/18 20:27 04/08/18 21:56 Cepacol Lozenge - MM 1 each PRN PRN Administration SORE THROAT Docusate Sodium 200 mg 04/10/18 11:30 04/13/18 10:59 Colace - PO 200 mg BID [facility] Administration Guaifenesin/Codeine Phosphate 5 ml 04/07/18 17:45 04/12/18 09:12 Robitussin Ac - PO 5 ml Q8H PRN Administration COUGH Azithromycin 500 mg in 250 mls @ 250 mls/hr 04/08/18 10:00 04/13/18 10:55 Zithromax 500mg Ivpb (Pre-Docked) IVPB 250 mls/hr DAILY [facility] Administration Ceftriaxone Sodium 2 gm/ 100 mls @ 200 mls/hr 04/08/18 10:00 04/13/18 10:55 Dextrose IVPB 200 mls/hr DAILY [facility] Administration Protocol Sodium Chloride 1,000 mls @ 75 mls/hr 04/07/18 17:45 04/13/18 06:25 Normal Saline - IV 75 mls/hr ASDIR [facility] Administration Magnesium Citrate 300 ml 04/10/18 11:48 04/12/18 10:00 Citroma - PO 300 ml Q48H PRN Administration CONSTIPATION Methylprednisolone Sodium Succinate 40 mg 04/10/18 22:00 04/13/18 10:55 Solu-Medrol - IVPUSH 40 mg BID [facility] Administration Mometasone Furoate 1 puff 04/07/18 22:00 04/12/18 21:58 Asmanex 110mcg - IH 1 inh HS [facility] Administration Pantoprazole Sodium 40 mg 04/08/18 10:00 04/13/18 10:55 Protonix - PO 40 mg DAILY [facility] Administration Polyethylene Glycol 17 gm 04/10/18 11:30 04/13/18 10:59 Miralax (For Daily Use) - PO 17 gm BID [facility] Administration Vital Signs: Vital Signs Period Temp Pulse Resp BP Sys/Devries Pulse Ox Last 24 Hr 98.0 F-98.4 F 61-81 18-20 124-135/70-82 97 nad no jvd rrr ss2 no mrg cta bl nl eff aaox3 no le e/c/c no jaundice diaphoresis CBC, BMP 04/13/18 09:55 04/13/18 09:55 EKG: sinus rhythm, no ischemic changes echo 03/2018 nl LV/RV function, mild pulm HTN RVSP [address] chest multifocal jean-pierre upper and lower lung opacities likely infectious/ inflammatory infiltrates. mild jean-pierre lower lobe and min to mild jean-pierre upper lobe bronchiectasis with associated mild bronchial wall thickening Assessment/Plan 82F h/o HTN, COPD p/w shortness of breath, cough shortness of breath, cough - trop neg x 2, BNP not diagnostic of HF - less likely cardiac etiology - pulm, ID, rheum following, CTS evaluation for possible RVAT - improving - nl LV function on echo COPD - manage per pulm HTN - stable BP not on meds, monitor NANDINI - unclear baseline - nephrology consulted
--- NOTE | 2018-04-13 12:13 | PN ---
Progress Note (short form) - Note Progress Note: 82 y/o female found alert and oriented x 3, sitting in bed. Denies SOB. Vital Signs Period Temp Pulse Resp BP Sys/Devries Pulse Ox Last 24 Hr 98.0 F-98.4 F 61-81 18-20 124-135/70-82 97 CBC, BMP 04/13/18 09:55 04/13/18 09:55 HEENT- Normocephalic Neck- Supple Lungs- CTAB Heart- S1/S2 Abd- Soft, NT Ext- No LE edema Active Medications Acetaminophen (Tylenol -) 650 mg PO Q6H PRN PRN Reason: FEVER Last Admin: 04/10/18 06:32 Dose: 650 mg Albuterol/Ipratropium (Duoneb -) 1 amp NEB RQID [facility] Last Admin: 04/13/18 12:13 Dose: Not Given Benzocaine/Menthol (Cepacol Lozenge -) 1 each MM PRN PRN PRN Reason: SORE THROAT Last Admin: 04/08/18 21:56 Dose: 1 each Docusate Sodium (Colace -) 200 mg PO BID [facility] Last Admin: 04/13/18 10:59 Dose: 200 mg Guaifenesin/Codeine Phosphate (Robitussin Ac -) 5 ml PO Q8H PRN PRN Reason: COUGH Last Admin: 04/12/18 09:12 Dose: 5 ml Azithromycin (Zithromax 500mg Ivpb (Pre-Docked)) 500 mg in 250 mls @ 250 mls/ hr IVPB DAILY [facility] Last Admin: 04/13/18 10:55 Dose: 250 mls/hr Ceftriaxone Sodium 2 gm/ (Dextrose) 100 mls @ 200 mls/hr IVPB DAILY [facility]; Protocol Last Admin: 04/13/18 10:55 Dose: 200 mls/hr Sodium Chloride (Normal Saline -) 1,000 mls @ 75 mls/hr IV ASDIR [facility] Last Admin: 04/13/18 06:25 Dose: 75 mls/hr Magnesium Citrate (Citroma -) 300 ml PO Q48H PRN PRN Reason: CONSTIPATION Last Admin: 04/12/18 10:00 Dose: 300 ml Methylprednisolone Sodium Succinate (Solu-Medrol -) 40 mg IVPUSH BID [facility] Last Admin: 04/13/18 10:55 Dose: 40 mg Mometasone Furoate (Asmanex 110mcg -) 1 puff IH HS [facility] Last Admin: 04/12/18 21:58 Dose: 1 inh Pantoprazole Sodium (Protonix -) 40 mg PO DAILY [facility] Last Admin: 04/13/18 10:55 Dose: 40 mg Polyethylene Glycol (Miralax (For Daily Use) -) 17 gm PO BID [facility] Last Admin: 04/13/18 10:59 Dose: 17 gm Assmt / plan # dyspnea increased pulm changes continue abx / steroids / PPI/ nebulizer Washings neg s/p bronchoscopy await bx / c/s # acute on CKD IV fluids Renal w/u in progress #constipation Resolved # anemia work -up Problem List - Problems (1) COPD (chronic obstructive pulmonary disease) Code(s): J44.9 - CHRONIC OBSTRUCTIVE PULMONARY DISEASE, UNSPECIFIED (2) Shortness of breath (3) HTN (hypertension) Code(s): I10 - ESSENTIAL (PRIMARY) HYPERTENSION (4) Weight decreased Code(s): R63.4 - ABNORMAL WEIGHT LOSS (5) Anemia Code(s): D64.9 - ANEMIA, UNSPECIFIED (6) Chronic kidney disease Code(s): N18.9 - CHRONIC KIDNEY DISEASE, UNSPECIFIED
--- NOTE | 2018-04-13 14:54 | PN ---
Progress Note, Physician History of Present Illness: Pt seen and examined at bedside. She is awake and alert. She denies shortness of breath. - Current Medication List Current Medications: Active Medications Acetaminophen (Tylenol -) 650 mg PO Q6H PRN PRN Reason: FEVER Last Admin: 04/10/18 06:32 Dose: 650 mg Albuterol/Ipratropium (Duoneb -) 1 amp NEB RQID [facility] Last Admin: 04/13/18 12:13 Dose: Not Given Benzocaine/Menthol (Cepacol Lozenge -) 1 each MM PRN PRN PRN Reason: SORE THROAT Last Admin: 04/08/18 21:56 Dose: 1 each Docusate Sodium (Colace -) 200 mg PO BID [facility] Last Admin: 04/13/18 10:59 Dose: 200 mg Guaifenesin/Codeine Phosphate (Robitussin Ac -) 5 ml PO Q8H PRN PRN Reason: COUGH Last Admin: 04/12/18 09:12 Dose: 5 ml Azithromycin (Zithromax 500mg Ivpb (Pre-Docked)) 500 mg in 250 mls @ 250 mls/ hr IVPB DAILY [facility] Last Admin: 04/13/18 10:55 Dose: 250 mls/hr Ceftriaxone Sodium 2 gm/ (Dextrose) 100 mls @ 200 mls/hr IVPB DAILY [facility]; Protocol Last Admin: 04/13/18 10:55 Dose: 200 mls/hr Sodium Chloride (Normal Saline -) 1,000 mls @ 75 mls/hr IV ASDIR [facility] Last Admin: 04/13/18 06:25 Dose: 75 mls/hr Magnesium Citrate (Citroma -) 300 ml PO Q48H PRN PRN Reason: CONSTIPATION Last Admin: 04/12/18 10:00 Dose: 300 ml Methylprednisolone Sodium Succinate (Solu-Medrol -) 40 mg IVPUSH BID [facility] Last Admin: 04/13/18 10:55 Dose: 40 mg Mometasone Furoate (Asmanex 110mcg -) 1 puff IH HS [facility] Last Admin: 04/12/18 21:58 Dose: 1 inh Pantoprazole Sodium (Protonix -) 40 mg PO DAILY [facility] Last Admin: 04/13/18 10:55 Dose: 40 mg Polyethylene Glycol (Miralax (For Daily Use) -) 17 gm PO BID [facility] Last Admin: 12/27/18 10:59 Dose: 17 gm - Objective Vital Signs: Vital Signs Temperature 98.0 F 04/13/18 10:00 Pulse Rate 61 04/13/18 10:00 Respiratory Rate 19 04/13/18 10:00 Blood Pressure 135/82 04/13/18 10:00 O2 Sat by Pulse Oximetry (%) 97 04/12/18 21:00 Constitutional: Yes: Calm Eyes: Yes: Conjunctiva Clear HENT: Yes: Atraumatic Neck: Yes: Supple Cardiovascular: Yes: S1, S2 Respiratory: Yes: CTA Bilaterally Gastrointestinal: Yes: Soft Genitourinary: Yes: WNL Musculoskeletal: Yes: WNL Edema: No Neurological: Yes: Oriented Psychiatric: Yes: Oriented Labs: CBC, BMP 04/13/18 09:55 04/13/18 09:55 INR, PTT INR 1.13 (0.83-1.09) H 04/06/18 11:30 Assessment/Plan Current Medications Generic Name Dose Route Start Last Admin Trade Name Freq PRN Reason Stop Dose Admin Acetaminophen 650 mg 04/07/18 20:27 04/10/18 06:32 Tylenol - PO 650 mg Q6H PRN Administration FEVER Albuterol/Ipratropium 1 amp 04/07/18 20:00 04/13/18 12:13 Duoneb - NEB Not Given RQID [facility] Benzocaine/Menthol 1 each 04/07/18 20:27 04/08/18 21:56 Cepacol Lozenge - MM 1 each PRN PRN Administration SORE THROAT Docusate Sodium 200 mg 04/10/18 11:30 04/13/18 10:59 Colace - PO 200 mg BID [facility] Administration Guaifenesin/Codeine Phosphate 5 ml 04/07/18 17:45 04/12/18 09:12 Robitussin Ac - PO 5 ml Q8H PRN Administration COUGH Azithromycin 500 mg in 250 mls @ 250 mls/hr 04/08/18 10:00 04/13/18 10:55 Zithromax 500mg Ivpb (Pre-Docked) IVPB 250 mls/hr DAILY [facility] Administration Ceftriaxone Sodium 2 gm/ 100 mls @ 200 mls/hr 04/08/18 10:00 04/13/18 10:55 Dextrose IVPB 200 mls/hr DAILY [facility] Administration Protocol Sodium Chloride 1,000 mls @ 75 mls/hr 04/07/18 17:45 04/13/18 06:25 Normal Saline - IV 75 mls/hr ASDIR [facility] Administration Magnesium Citrate 300 ml 04/10/18 11:48 04/12/18 10:00 Citroma - PO 300 ml Q48H PRN Administration CONSTIPATION Methylprednisolone Sodium Succinate 40 mg 04/10/18 22:00 04/13/18 10:55 Solu-Medrol - IVPUSH 40 mg BID [facility] Administration Mometasone Furoate 1 puff 04/07/18 22:00 04/12/18 21:58 Asmanex 110mcg - IH 1 inh HS [facility] Administration Pantoprazole Sodium 40 mg 04/08/18 10:00 04/13/18 10:55 Protonix - PO 40 mg DAILY [facility] Administration Polyethylene Glycol 17 gm 04/10/18 11:30 04/13/18 10:59 Miralax (For Daily Use) - PO 17 gm BID [facility] Administration Impression 1. NANDINI 2. lung lesions 3. weight loss 4. cough 5. HTN 6. positive DERECK Plan - cont to monitor renal function - will need outpt follow up - rheum eval - follow up bronch pathology - renal workup in progress - encourage PO intake Dr Casanova
[2018-04-13 15:17] LABS: ATYPICAL pANCA <1:20 titer (Neg:<1:20); C-ANCA <1:20 titer (Neg:<1:20)
--- NOTE | 2018-04-13 15:56 | PN ---
Progress Note (short form) - Note Progress Note: Reports continued improvement in breathing. Now off O2 and resting comfortably. No fevers or chills. No hemoptysis. Pathology: none revealing / no malignant cells / inflammatory cells Intake & Output 04/10/18 04/11/18 04/12/18 04/13/18 23:59 23:59 23:59 23:59 Intake Total 2755 2145 2465 1180 Balance 2755 2145 2465 1180 Weight 134 lb Last Vital Signs Temp Pulse Resp BP Pulse Ox 98.2 F 66 20 124/64 97 04/13/18 14:08 04/13/18 14:08 04/13/18 14:08 04/13/18 14:08 04/13/18 09:00 Active Medications Acetaminophen (Tylenol -) 650 mg PO Q6H PRN PRN Reason: FEVER Last Admin: 04/10/18 06:32 Dose: 650 mg Albuterol/Ipratropium (Duoneb -) 1 amp NEB RQID [facility] Last Admin: 04/13/18 12:13 Dose: Not Given Benzocaine/Menthol (Cepacol Lozenge -) 1 each MM PRN PRN PRN Reason: SORE THROAT Last Admin: 04/08/18 21:56 Dose: 1 each Docusate Sodium (Colace -) 200 mg PO BID [facility] Last Admin: 04/13/18 10:59 Dose: 200 mg Guaifenesin/Codeine Phosphate (Robitussin Ac -) 5 ml PO Q8H PRN PRN Reason: COUGH Last Admin: 04/12/18 09:12 Dose: 5 ml Azithromycin (Zithromax 500mg Ivpb (Pre-Docked)) 500 mg in 250 mls @ 250 mls/ hr IVPB DAILY [facility] Last Admin: 04/13/18 10:55 Dose: 250 mls/hr Ceftriaxone Sodium 2 gm/ (Dextrose) 100 mls @ 200 mls/hr IVPB DAILY [facility]; Protocol Last Admin: 04/13/18 10:55 Dose: 200 mls/hr Sodium Chloride (Normal Saline -) 1,000 mls @ 75 mls/hr IV ASDIR [facility] Last Admin: 04/13/18 06:25 Dose: 75 mls/hr Magnesium Citrate (Citroma -) 300 ml PO Q48H PRN PRN Reason: CONSTIPATION Last Admin: 04/12/18 10:00 Dose: 300 ml Methylprednisolone Sodium Succinate (Solu-Medrol -) 40 mg IVPUSH BID [facility] Last Admin: 04/13/18 10:55 Dose: 40 mg Mometasone Furoate (Asmanex 110mcg -) 1 puff IH HS [facility] Last Admin: 04/12/18 21:58 Dose: 1 inh Pantoprazole Sodium (Protonix -) 40 mg PO DAILY [facility] Last Admin: 04/13/18 10:55 Dose: 40 mg Polyethylene Glycol (Miralax (For Daily Use) -) 17 gm PO BID [facility] Last Admin: 04/13/18 10:59 Dose: 17 gm Gen: NAD at rest Heart: RRR Lung: scattered basilar rhonchi Abd: soft, nontender Ext: no edema Laboratory Results - last 24 hr 04/07/18 04/11/18 04/13/18 07:30 07:22 06:30 WBC RBC Hgb Hct MCV MCH MCHC RDW Plt Count MPV Absolute Neuts (auto) Neutrophils % Lymphocytes % Monocytes % Eosinophils % Basophils % Nucleated RBC % Sodium 137 Potassium 4.0 Chloride 102 Carbon Dioxide 30 Anion Gap 5 L BUN 22 H Creatinine 1.3 Creat Clearance w eGFR 39.12 Random Glucose 109 H Calcium 7.6 L c-ANCA <1:20 Proteinase 3 (PR3) <3.5 p-ANCA 1:160 H Atypical p-ANCA <1:20 Myeloperoxidase Ab 25.3 H Tot Complement (CH50) 47 04/13/18 04/13/18 09:55 09:55 WBC 14.3 H RBC 3.00 L Hgb 8.6 L Hct 26.8 L MCV 89.3 MCH 28.7 MCHC 32.1 RDW 14.2 Plt Count 424 MPV 7.0 L Absolute Neuts (auto) 11.0 H Neutrophils % 76.4 Lymphocytes % 15.8 D Monocytes % 7.3 Eosinophils % 0.3 D Basophils % 0.2 Nucleated RBC % 0 Sodium 137 Potassium 3.7 Chloride 100 Carbon Dioxide 31 Anion Gap 6 L BUN 23 H Creatinine 1.4 H Creat Clearance w eGFR 35.91 Random Glucose 97 Calcium 8.0 L c-ANCA Proteinase 3 (PR3) p-ANCA Atypical p-ANCA Myeloperoxidase Ab Tot Complement (CH50) A/P Bilateral Pulmonary Infiltrates: Etiology to be determined: (?) HP R/O Interstitial Lung Disease Acute Kidney Injury PAH: RSVP 41mmHg Anemia - Medrol: can change to Prednisone in AM: 1mg/kg per day - inhaled bronchodilators - DVT prophylaxis - Incentive Spirometry - Ambulate ad xenia - D/C planning Dr Castellano
[2018-04-13] MEDS ORDERED: PT OWN MED DRAWER 7, Y5N ONE (20:53)
[2018-04-13] MEDS: MOMETASONE FUROATE 110 MCG/IH INHALER IH SCH (21:14)
[2018-04-14] MEDS: ALBUTEROL SO4 2.5/IPRATROPIUM 0.5 INH SOL 3 ML VIAL.NEB. NEB SCH ×4 (07:25→21:20)
[2018-04-14 07:54] LABS: BASO % 0.2 % (0-2.0); EOS % 0.1 % (0-4.5); HEMATOCRIT 24.4 % (32.4-45.2); HEMOGLOBIN 7.8 GM/dL (10.7-15.3); LYMPH % 12.8 % (8-40); MCH 28.4 pg (25.7-33.7); MCHC 32.2 g/dl (32.0-36.0); MEAN CELL VOLUME 88.2 fl (80-96); MONO % 6.6 % (3.8-10.2); NEUT % 80.3 % (42.8-82.8); PLATELET COUNT 351 K/MM3 (134-434); RBC 2.76 M/mm3 (3.60-5.2); RDW 14.5 % (11.6-15.6); WHITE BLOOD COUNT 12.1 K/mm3 (4.0-10.0)
[2018-04-14 08:46] LABS: ANION GAP 7 MMOL/L (8-16); BLOOD UREA NITROGEN 25 mg/dL (7-18); CALCIUM 7.6 mg/dL (8.5-10.1); CHLORIDE 105 mmol/L (98-107); CO2 29 mmol/L (21-32); CREATININE 1.3 mg/dL (0.55-1.3); GLUCOSE,RANDOM 109 mg/dL (74-106); POTASSIUM 3.7 mmol/L (3.5-5.1); SODIUM 141 mmol/L (136-145)
[2018-04-14] MEDS ORDERED: DEXTROSE 5%-WATER 100 ML IVPB ONE (09:50)
[2018-04-14] MEDS ORDERED: PT OWN MED DRAWER 7, Y5N ONE ×2 (09:51→21:50)
[2018-04-14] MEDS: PANTOPRAZOLE 40 MG TABLET (FP) PO SCH (10:17)
[2018-04-14] MEDS: CEFTRIAXONE 2 GM in DEXTROSE 5%-WATER 100 ML IVPB SCH (10:18)
[2018-04-14] MEDS: POLYETHYLENE GLYCOL 3350 119 GM BTL PO SCH ×2 (10:18→22:42)
[2018-04-14] MEDS: AZITHROMYCIN IVPB 500 MG/250 ML BAG IVPB SCH (10:18)
[2018-04-14] MEDS: DOCUSATE SODIUM 100 MG CAPSULE (FP) PO SCH ×2 (10:18→22:41)
[2018-04-14] MEDS: methylPREDNISolone NA SUCC 40 MG/1 ML VIAL IVPUSH SCH ×2 (10:18→22:41)
--- NOTE | 2018-04-14 11:43 | DS ---
Physical Examination Vital Signs: Vital Signs Temperature 98.1 F 04/14/18 10:00 Pulse Rate 58 L 04/14/18 10:00 Respiratory Rate 19 04/14/18 10:00 Blood Pressure 136/74 04/14/18 10:00 O2 Sat by Pulse Oximetry (%) 97 04/13/18 21:00 Constitutional: Yes: Well Nourished Eyes: Yes: Conjunctiva Clear HENT: Yes: Atraumatic, Normocephalic Neck: Yes: Supple, Trachea Midline Cardiovascular: Yes: Regular Rate and Rhythm Respiratory: Yes: Regular, CTA Bilaterally Gastrointestinal: Yes: Normal Bowel Sounds, Soft ...Rectal Exam: Yes: Deferred Musculoskeletal: Yes: WNL Extremities: Yes: WNL Edema: No Peripheral Pulses WNL: Yes Integumentary: Yes: WNL Neurological: Yes: Alert, Oriented ...Motor Strength: WNL Psychiatric: Yes: Alert, Oriented Labs: CBC, BMP 04/14/18 06:55 04/14/18 06:55 Discharge Summary Reason For Visit: SOB Current Active Problems Acute kidney injury (Acute) Anemia (Acute) COPD (chronic obstructive pulmonary disease) (Acute) Chronic kidney disease (Acute) HTN (hypertension) (Acute) Lung infiltrate (Acute) Shortness of breath (Acute) Weight decreased (Acute) Hospital Course: 82 y/o female admitted for sob and rapid wt loss. Treated with IV steroids and IV antibiotics. Seen by pulm and cardio. F/u with pulm as outpt. Condition: Stable - Instructions Referrals: Singh Zapata [Primary Care Provider] - Disposition: HOME
--- NOTE | 2018-04-14 11:49 | PN ---
Progress Note (short form) - Note Progress Note: s: sob resolved no chest pain, palps, dizziness, lightheadedness Current Medications Generic Name Dose Route Start Last Admin Trade Name Freq PRN Reason Stop Dose Admin Acetaminophen 650 mg 04/07/18 20:27 04/10/18 06:32 Tylenol - PO 650 mg Q6H PRN Administration FEVER Albuterol/Ipratropium 1 amp 04/07/18 20:00 04/14/18 11:30 Duoneb - NEB 1 amp RQID LALO Administration Benzocaine/Menthol 1 each 04/07/18 20:27 04/08/18 21:56 Cepacol Lozenge - MM 1 each PRN PRN Administration SORE THROAT Docusate Sodium 200 mg 04/10/18 11:30 04/14/18 10:18 Colace - PO 200 mg BID LALO Administration Guaifenesin/Codeine Phosphate 5 ml 04/07/18 17:45 04/12/18 09:12 Robitussin Ac - PO 5 ml Q8H PRN Administration COUGH Azithromycin 500 mg in 250 mls @ 250 mls/hr 04/08/18 10:00 04/14/18 10:18 Zithromax 500mg Ivpb (Pre-Docked) IVPB 250 mls/hr DAILY LALO Administration Ceftriaxone Sodium 2 gm/ 100 mls @ 200 mls/hr 04/08/18 10:00 04/14/18 10:18 Dextrose IVPB 200 mls/hr DAILY LALO Administration Protocol Sodium Chloride 1,000 mls @ 75 mls/hr 04/07/18 17:45 04/13/18 06:25 Normal Saline - IV 75 mls/hr ASDIR LALO Administration Magnesium Citrate 300 ml 04/10/18 11:48 04/12/18 10:00 Citroma - PO 300 ml Q48H PRN Administration CONSTIPATION Methylprednisolone Sodium Succinate 40 mg 04/10/18 22:00 04/14/18 10:18 Solu-Medrol - IVPUSH 40 mg BID LALO Administration Mometasone Furoate 1 puff 04/07/18 22:00 04/13/18 21:14 Asmanex 110mcg - IH 1 inh HS LALO Administration Pantoprazole Sodium 40 mg 04/08/18 10:00 04/14/18 10:17 Protonix - PO 40 mg DAILY LALO Administration Polyethylene Glycol 17 gm 04/10/18 11:30 04/14/18 10:18 Miralax (For Daily Use) - PO 17 gm BID LALO Administration Vital Signs: Vital Signs Period Temp Pulse Resp BP Sys/Devries Pulse Ox Last 24 Hr 98.1 F-98.6 F 58-72 19-20 118-136/64-74 97 nad no jvd rrr ss2 no mrg cta bl nl eff aaox3 no le e/c/c no jaundice diaphoresis CBC, BMP 04/14/18 06:55 04/14/18 06:55 EKG: sinus rhythm, no ischemic changes echo 03/2018 nl LV/RV function, mild pulm HTN RVSP [address] chest multifocal jean-pierre upper and lower lung opacities likely infectious/ inflammatory infiltrates. mild jean-pierre lower lobe and min to mild jean-pierre upper lobe bronchiectasis with associated mild bronchial wall thickening Assessment/Plan 82F h/o HTN, COPD p/w shortness of breath, cough shortness of breath, cough - trop neg x 2, BNP not diagnostic of HF - less likely cardiac etiology, ?ILD - pulm, ID, rheum following - improved now - nl LV function on echo COPD - manage per pulm HTN - stable BP not on meds, monitor NANDINI - unclear baseline, cr improved - nephrology consulted cardiac rodarte stable
--- NOTE | 2018-04-14 16:34 | PN ---
Progress Note, Physician History of Present Illness: Pt seen and examined at bedside. She is awake and alert. She denies shortness of breath. - Current Medication List Current Medications: Active Medications Acetaminophen (Tylenol -) 650 mg PO Q6H PRN PRN Reason: FEVER Last Admin: 04/10/18 06:32 Dose: 650 mg Albuterol/Ipratropium (Duoneb -) 1 amp NEB RQID COUNTS INCLUDE 234 BEDS AT THE [facility] Last Admin: 04/14/18 15:10 Dose: 1 amp Benzocaine/Menthol (Cepacol Lozenge -) 1 each MM PRN PRN PRN Reason: SORE THROAT Last Admin: 04/08/18 21:56 Dose: 1 each Docusate Sodium (Colace -) 200 mg PO BID COUNTS INCLUDE 234 BEDS AT THE [facility] Last Admin: 04/14/18 10:18 Dose: 200 mg Guaifenesin/Codeine Phosphate (Robitussin Ac -) 5 ml PO Q8H PRN PRN Reason: COUGH Last Admin: 04/12/18 09:12 Dose: 5 ml Azithromycin (Zithromax 500mg Ivpb (Pre-Docked)) 500 mg in 250 mls @ 250 mls/ hr IVPB DAILY COUNTS INCLUDE 234 BEDS AT THE [facility] Last Admin: 04/14/18 10:18 Dose: 250 mls/hr Ceftriaxone Sodium 2 gm/ (Dextrose) 100 mls @ 200 mls/hr IVPB DAILY COUNTS INCLUDE 234 BEDS AT THE [facility]; Protocol Last Admin: 04/14/18 10:18 Dose: 200 mls/hr Sodium Chloride (Normal Saline -) 1,000 mls @ 75 mls/hr IV ASDIR COUNTS INCLUDE 234 BEDS AT THE [facility] Last Admin: 04/13/18 06:25 Dose: 75 mls/hr Magnesium Citrate (Citroma -) 300 ml PO Q48H PRN PRN Reason: CONSTIPATION Last Admin: 04/12/18 10:00 Dose: 300 ml Methylprednisolone Sodium Succinate (Solu-Medrol -) 40 mg IVPUSH BID COUNTS INCLUDE 234 BEDS AT THE [facility] Last Admin: 04/14/18 10:18 Dose: 40 mg Mometasone Furoate (Asmanex 110mcg -) 1 puff IH HS COUNTS INCLUDE 234 BEDS AT THE [facility] Last Admin: 04/13/18 21:14 Dose: 1 inh Pantoprazole Sodium (Protonix -) 40 mg PO DAILY COUNTS INCLUDE 234 BEDS AT THE [facility] Last Admin: 04/14/18 10:17 Dose: 40 mg Polyethylene Glycol (Miralax (For Daily Use) -) 17 gm PO BID COUNTS INCLUDE 234 BEDS AT THE [facility] Last Admin: 12/28/18 10:18 Dose: 17 gm - Objective Vital Signs: Vital Signs Temperature 97.9 F 04/14/18 14:28 Pulse Rate 70 04/14/18 14:28 Respiratory Rate 20 04/14/18 14:28 Blood Pressure 128/75 04/14/18 14:28 O2 Sat by Pulse Oximetry (%) 92 L 04/14/18 13:22 Constitutional: Yes: Calm Eyes: Yes: WNL HENT: Yes: WNL Cardiovascular: Yes: S1, S2 Respiratory: Yes: CTA Bilaterally Gastrointestinal: Yes: Normal Bowel Sounds, Soft Genitourinary: Yes: WNL Musculoskeletal: Yes: WNL Edema: No Neurological: Yes: Oriented Psychiatric: Yes: Oriented Labs: CBC, BMP 04/14/18 06:55 04/14/18 06:55 INR, PTT INR 1.13 (0.83-1.09) H 04/06/18 11:30 Assessment/Plan Current Medications Generic Name Dose Route Start Last Admin Trade Name Khrisq PRN Reason Stop Dose Admin Acetaminophen 650 mg 04/07/18 20:27 04/10/18 06:32 Tylenol - PO 650 mg Q6H PRN Administration FEVER Albuterol/Ipratropium 1 amp 04/07/18 20:00 04/14/18 15:10 Duoneb - NEB 1 amp RQID LALO Administration Benzocaine/Menthol 1 each 04/07/18 20:27 04/08/18 21:56 Cepacol Lozenge - MM 1 each PRN PRN Administration SORE THROAT Docusate Sodium 200 mg 04/10/18 11:30 04/14/18 10:18 Colace - PO 200 mg BID LALO Administration Guaifenesin/Codeine Phosphate 5 ml 04/07/18 17:45 04/12/18 09:12 Robitussin Ac - PO 5 ml Q8H PRN Administration COUGH Azithromycin 500 mg in 250 mls @ 250 mls/hr 04/08/18 10:00 04/14/18 10:18 Zithromax 500mg Ivpb (Pre-Docked) IVPB 250 mls/hr DAILY LALO Administration Ceftriaxone Sodium 2 gm/ 100 mls @ 200 mls/hr 04/08/18 10:00 04/14/18 10:18 Dextrose IVPB 200 mls/hr DAILY LALO Administration Protocol Sodium Chloride 1,000 mls @ 75 mls/hr 04/07/18 17:45 04/13/18 06:25 Normal Saline - IV 75 mls/hr ASDIR LALO Administration Magnesium Citrate 300 ml 04/10/18 11:48 04/12/18 10:00 Citroma - PO 300 ml Q48H PRN Administration CONSTIPATION Methylprednisolone Sodium Succinate 40 mg 04/10/18 22:00 04/14/18 10:18 Solu-Medrol - IVPUSH 40 mg BID LALO Administration Mometasone Furoate 1 puff 04/07/18 22:00 04/13/18 21:14 Asmanex 110mcg - IH 1 inh HS LALO Administration Pantoprazole Sodium 40 mg 04/08/18 10:00 04/14/18 10:17 Protonix - PO 40 mg DAILY LALO Administration Polyethylene Glycol 17 gm 04/10/18 11:30 04/14/18 10:18 Miralax (For Daily Use) - PO 17 gm BID LALO Administration Laboratory Tests 04/07/18 07:30 DERECK Screen Positive H DERECK Homogeneous Pattern 1:160 H p-ANCA 1:160 H Myeloperoxidase Ab 25.3 H Impression 1. NANDINI 2. lung lesions 3. weight loss 4. cough 5. HTN 6. positive DERECK Plan - rheum follow up for positive p-anca - renal function stable - repeat ua - follow up bronch pathology - renal workup in progress - encourage PO intake Dr Casanova
[2018-04-14] MEDS: MOMETASONE FUROATE 110 MCG/IH INHALER IH SCH (22:41)
[2018-04-15] MEDS: ALBUTEROL SO4 2.5/IPRATROPIUM 0.5 INH SOL 3 ML VIAL.NEB. NEB SCH ×4 (07:30→19:58)
[2018-04-15] MEDS: SODIUM CHLORIDE 1,000 ML IV SCH (09:31)
[2018-04-15] MEDS ORDERED: DEXTROSE 5%-WATER 100 ML IVPB ONE (09:54)
[2018-04-15] MEDS: CEFTRIAXONE 2 GM in DEXTROSE 5%-WATER 100 ML IVPB SCH (09:55)
[2018-04-15] MEDS: AZITHROMYCIN IVPB 500 MG/250 ML BAG IVPB SCH (09:55)
[2018-04-15] MEDS: methylPREDNISolone NA SUCC 40 MG/1 ML VIAL IVPUSH SCH ×2 (09:56→21:47)
[2018-04-15] MEDS: POLYETHYLENE GLYCOL 3350 119 GM BTL PO SCH ×2 (09:56→21:47)
[2018-04-15] MEDS: DOCUSATE SODIUM 100 MG CAPSULE (FP) PO SCH ×2 (09:56→21:47)
[2018-04-15] MEDS: PANTOPRAZOLE 40 MG TABLET (FP) PO SCH (09:56)
[2018-04-15 11:12] LABS: URINE APPEARANCE CLEAR; URINE BILIRUBIN NEGATIVE (<2.0 mg/dL); URINE COLOR STRAW; URINE GLUCOSE (UA) NEGATIVE (NEGATIVE); URINE KETONE NEGATIVE (NEGATIVE); URINE LEUK ESTERASE NEGATIVE (NEGATIVE); URINE NITRITE NEGATIVE (NEGATIVE); URINE PROTEIN 1+ (NEGATIVE); URINE UROBILINOGEN NEGATIVE mg/dL (0.2-1.0)
[2018-04-15 11:21] LABS: EPI CELLS RARE /HPF (FEW)
--- NOTE | 2018-04-15 12:20 | PN ---
Progress Note (short form) - Note Progress Note: s: sob resolved no chest pain, palps, dizziness, lightheadedness Current Medications Generic Name Dose Route Start Last Admin Trade Name Freq PRN Reason Stop Dose Admin Acetaminophen 650 mg 04/07/18 20:27 04/10/18 06:32 Tylenol - PO 650 mg Q6H PRN Administration FEVER Albuterol/Ipratropium 1 amp 04/07/18 20:00 04/15/18 11:30 Duoneb - NEB 1 amp RQID LALO Administration Benzocaine/Menthol 1 each 04/07/18 20:27 04/08/18 21:56 Cepacol Lozenge - MM 1 each PRN PRN Administration SORE THROAT Docusate Sodium 200 mg 04/10/18 11:30 04/15/18 09:56 Colace - PO 200 mg BID LALO Administration Magnesium Citrate 300 ml 04/10/18 11:48 04/12/18 10:00 Citroma - PO 300 ml Q48H PRN Administration CONSTIPATION Methylprednisolone Sodium Succinate 40 mg 04/10/18 22:00 04/15/18 09:56 Solu-Medrol - IVPUSH 40 mg BID LALO Administration Mometasone Furoate 1 puff 04/07/18 22:00 04/14/18 22:41 Asmanex 110mcg - IH 1 inh HS LALO Administration Pantoprazole Sodium 40 mg 04/08/18 10:00 04/15/18 09:56 Protonix - PO 40 mg DAILY LALO Administration Polyethylene Glycol 17 gm 04/10/18 11:30 04/15/18 09:56 Miralax (For Daily Use) - PO 17 gm BID LALO Administration Vital Signs: Vital Signs Period Temp Pulse Resp BP Sys/Devries Pulse Ox Last 24 Hr 97.9 F-98.5 F 68-90 18-20 122-142/69-81 92-95 nad no jvd rrr ss2 no mrg cta bl nl eff aaox3 no le e/c/c no jaundice diaphoresis CBC, BMP 04/14/18 06:55 04/14/18 06:55 EKG: sinus rhythm, no ischemic changes echo 03/2018 nl LV/RV function, mild pulm HTN RVSP [address] chest multifocal jean-pierre upper and lower lung opacities likely infectious/ inflammatory infiltrates. mild jean-pierre lower lobe and min to mild jean-pierre upper lobe bronchiectasis with associated mild bronchial wall thickening Assessment/Plan 82F h/o HTN, COPD p/w shortness of breath, cough shortness of breath, cough - trop neg x 2, BNP not diagnostic of HF - less likely cardiac etiology, ?ILD - pulm, ID, rheum following - improved now - nl LV function on echo COPD - manage per pulm HTN - stable BP not on meds, monitor NANDINI - unclear baseline, cr improved - nephrology consulted cardiac rodarte stable
--- NOTE | 2018-04-15 12:55 | PN ---
Progress Note (short form) - Note Progress Note: PULMONARY APPEARS COMFORTABLE DENIES SOB VSS/AFEBRILE ANICTERIC BILATERAL SCATTERED INSP CRACKLES S1S2 BS+ NO EDEMA LABS/MEDS/IMAGES REVIEWED + SUSANNA + pANCA A/P Bilateral Pulmonary Infiltrates likely vasculitic in origin given + susanna/p anca Interstitial Lung Disease Acute Kidney Injury PAH: RSVP 41mmHg Anemia - steroids - awaiting Rheum eval - inhaled bronchodilators - DVT prophylaxis - Incentive Spirometry - Ambulate ad xenia Gaby FERGUSON MD
--- NOTE | 2018-04-15 14:37 | PN ---
Progress Note (short form) - Note Progress Note: in bed comfortable appreciate rhematology consult awaiting follow up + panca / + MA / + DERECK c/w vasculitis Vital Signs Period Temp Pulse Resp BP Sys/Devries Pulse Ox Last 24 Hr 97.4 F-97.6 F 59-70 18-20 132-139/75-83 98 neck supple heart S1/S2 lungs grossly clear abd soft non tender ext no edema CBC, BMP 04/14/18 06:55 04/14/18 06:55 Microbiology 04/07/18 17:30 Bronchial Washings - Left Upper Lobe AFB Smear Concentration - Final 04/07/18 17:30 Bronchial Washings - Left Upper Lobe Mycobacterial Culture - Preliminary 04/06/18 20:30 Blood - Peripheral Venous Blood Culture - Final NO GROWTH AFTER 5 DAYS INCUBATION 04/06/18 18:30 Blood - Peripheral Venous Blood Culture - Final NO GROWTH AFTER 5 DAYS INCUBATION 04/07/18 17:30 Bronchial Washings - Left Upper Lobe Gram Stain - Final 04/07/18 17:30 Bronchial Washings - Left Upper Lobe Bronchoalveolar Lavage Culture - Final NORMAL RESPIRATORY POLA 04/06/18 22:00 Sputum - Expectorated Gram Stain - Final 04/06/18 22:00 Sputum - Expectorated Sputum Culture - Final NORMAL RESPIRATORY POLA 04/07/18 17:30 Bronchial Washings - Left Upper Lobe JUSTA Preparation - Preliminary 04/07/18 17:30 Bronchial Washings - Left Upper Lobe Fungal Culture - Preliminary 04/06/18 19:02 Urine For Antigen Detection Legionella Antigen - Final 04/06/18 19:02 Urine For Antigen Detection Streptococcus pneumoniae Antigen (M - Final Active Medications Acetaminophen (Tylenol -) 650 mg PO Q6H PRN PRN Reason: FEVER Last Admin: 04/10/18 06:32 Dose: 650 mg Albuterol/Ipratropium (Duoneb -) 1 amp NEB RQID LALO Last Admin: 04/15/18 11:30 Dose: 1 amp Benzocaine/Menthol (Cepacol Lozenge -) 1 each MM PRN PRN PRN Reason: SORE THROAT Last Admin: 04/08/18 21:56 Dose: 1 each Docusate Sodium (Colace -) 200 mg PO BID LALO Last Admin: 04/15/18 09:56 Dose: 200 mg Magnesium Citrate (Citroma -) 300 ml PO Q48H PRN PRN Reason: CONSTIPATION Last Admin: 04/12/18 10:00 Dose: 300 ml Methylprednisolone Sodium Succinate (Solu-Medrol -) 40 mg IVPUSH BID [facility] Last Admin: 04/15/18 09:56 Dose: 40 mg Mometasone Furoate (Asmanex 110mcg -) 1 puff IH HS [facility] Last Admin: 04/14/18 22:41 Dose: 1 inh Pantoprazole Sodium (Protonix -) 40 mg PO DAILY [facility] Last Admin: 04/15/18 09:56 Dose: 40 mg Polyethylene Glycol (Miralax (For Daily Use) -) 17 gm PO BID [facility] Last Admin: 04/15/18 09:56 Dose: 17 gm Assmt / plan # dyspnea bilateral pulmonary infiltrates continue abx / steroids / PPi / nebulizer s/p bronchoscopy await bx / c/s thoracic for wedge bx appreciate Rhematology and pulmonary followup # acute on CKD IV fluids work up in progress appreciate nephrology follow up #constipation Miralax / colace enema PRN /citoma PRN # anemia work -up Problem List - Problems (1) COPD (chronic obstructive pulmonary disease) Code(s): J44.9 - CHRONIC OBSTRUCTIVE PULMONARY DISEASE, UNSPECIFIED (2) Shortness of breath (3) HTN (hypertension) Code(s): I10 - ESSENTIAL (PRIMARY) HYPERTENSION (4) Weight decreased Code(s): R63.4 - ABNORMAL WEIGHT LOSS (5) Anemia Code(s): D64.9 - ANEMIA, UNSPECIFIED (6) Chronic kidney disease Code(s): N18.9 - CHRONIC KIDNEY DISEASE, UNSPECIFIED
--- NOTE | 2018-04-15 16:51 | PN ---
Progress Note, Physician History of Present Illness: Pt seen and examined at bedside. She is awake and alert. SHe has no complaints. - Current Medication List Current Medications: Active Medications Acetaminophen (Tylenol -) 650 mg PO Q6H PRN PRN Reason: FEVER Last Admin: 04/10/18 06:32 Dose: 650 mg Albuterol/Ipratropium (Duoneb -) 1 amp NEB RQID ON LICENSE OF [facility] Last Admin: 04/15/18 16:16 Dose: 1 amp Benzocaine/Menthol (Cepacol Lozenge -) 1 each MM PRN PRN PRN Reason: SORE THROAT Last Admin: 04/08/18 21:56 Dose: 1 each Docusate Sodium (Colace -) 200 mg PO BID ON LICENSE OF [facility] Last Admin: 04/15/18 09:56 Dose: 200 mg Magnesium Citrate (Citroma -) 300 ml PO Q48H PRN PRN Reason: CONSTIPATION Last Admin: 04/12/18 10:00 Dose: 300 ml Methylprednisolone Sodium Succinate (Solu-Medrol -) 40 mg IVPUSH BID ON LICENSE OF [facility] Last Admin: 04/15/18 09:56 Dose: 40 mg Mometasone Furoate (Asmanex 110mcg -) 1 puff IH HS ON LICENSE OF [facility] Last Admin: 04/14/18 22:41 Dose: 1 inh Pantoprazole Sodium (Protonix -) 40 mg PO DAILY ON LICENSE OF [facility] Last Admin: 04/15/18 09:56 Dose: 40 mg Polyethylene Glycol (Miralax (For Daily Use) -) 17 gm PO BID ON LICENSE OF [facility] Last Admin: 04/15/18 09:56 Dose: 17 gm - Objective Vital Signs: Vital Signs Temperature 98.3 F 04/15/18 10:05 Pulse Rate 68 04/15/18 10:05 Respiratory Rate 18 04/15/18 10:05 Blood Pressure 122/69 04/15/18 10:05 O2 Sat by Pulse Oximetry (%) 95 04/15/18 10:00 Constitutional: Yes: Calm Eyes: Yes: Conjunctiva Clear HENT: Yes: Atraumatic Cardiovascular: Yes: S1, S2 Respiratory: Yes: CTA Bilaterally Gastrointestinal: Yes: Normal Bowel Sounds, Soft Genitourinary: Yes: WNL Musculoskeletal: Yes: WNL Edema: No Integumentary: Yes: WNL Neurological: Yes: Oriented Psychiatric: Yes: Oriented Labs: CBC, BMP 04/14/18 06:55 04/14/18 06:55 INR, PTT INR 1.13 (0.83-1.09) H 04/06/18 11:30 Assessment/Plan Current Medications Generic Name Dose Route Start Last Admin Trade Name Freq PRN Reason Stop Dose Admin Acetaminophen 650 mg 04/07/18 20:27 04/10/18 06:32 Tylenol - PO 650 mg Q6H PRN Administration FEVER Albuterol/Ipratropium 1 amp 04/07/18 20:00 04/15/18 16:16 Duoneb - NEB 1 amp RQID LALO Administration Benzocaine/Menthol 1 each 04/07/18 20:27 04/08/18 21:56 Cepacol Lozenge - MM 1 each PRN PRN Administration SORE THROAT Docusate Sodium 200 mg 04/10/18 11:30 04/15/18 09:56 Colace - PO 200 mg BID LALO Administration Magnesium Citrate 300 ml 04/10/18 11:48 04/12/18 10:00 Citroma - PO 300 ml Q48H PRN Administration CONSTIPATION Methylprednisolone Sodium Succinate 40 mg 04/10/18 22:00 04/15/18 09:56 Solu-Medrol - IVPUSH 40 mg BID LALO Administration Mometasone Furoate 1 puff 04/07/18 22:00 04/14/18 22:41 Asmanex 110mcg - IH 1 inh HS LALO Administration Pantoprazole Sodium 40 mg 04/08/18 10:00 04/15/18 09:56 Protonix - PO 40 mg DAILY LALO Administration Polyethylene Glycol 17 gm 04/10/18 11:30 04/15/18 09:56 Miralax (For Daily Use) - PO 17 gm BID LALO Administration Laboratory Tests 04/07/18 04/07/18 04/14/18 07:30 12:36 06:00 Urine Protein 1+ H Urine Blood 2+ H DERECK Screen Positive H DERECK Homogeneous Pattern 1:160 H p-ANCA 1:160 H Myeloperoxidase Ab 25.3 H Double Strand DNA Ab <1 Glomerular Base Memb Ab 4 Impression 1. NANDINI 2. lung lesions 3. weight loss 4. cough 5. HTN 6. positive DERECK Plan - called rheum, they will follow up on her - cont to monitor renal function - pending plan from rheum - follow renal workup - repeat ua still with active sediment - discussed plan with pt - follow up bronch pathology Dr Casanova
[2018-04-15] MEDS: MOMETASONE FUROATE 110 MCG/IH INHALER IH SCH (21:48)
--- NOTE | 2018-04-16 00:25 | PN ---
Progress Note (short form) - Note Progress Note: Two month history of shortness of breath, cough fever, weight loss, presence of bilateral lung infiltrates, elevated ESR and mild chronic kidney disease with mild abnormal urinary sediment. On Solumedrol 40 mg IV BID. The patient reports feeling well, shortness of breath improved. She has not have fever during the hospitalization. On the physical examination she is not on distress, lungs clear and no active joints. Laboratory work-up revealed p-ANCA 1:160 and myeloperoxidase 25.3, DERECK 1:160 with homogeneous pattern Complement was normal (C3: 126, C4: 25 and CH50 47). Negative for M spike. Creatinine improving (1.3, on admission 2.3) and no changes in urinalysis (protein 1+ and blood 2+). Report of biopsy from bronchoscopy not available. Impression. 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 It is important to have a positive biopsy before starting immunosppressive medications, ideally from the lung, or otherwise kidney Bx, however the patient is reluctant to have a lung wedge bx. Even though she is improving with steroids, without additional medications she has a high mortality risk. Plan: I will discuss case with Dr. Casanova and Nona, I suggest Rituximab following the Rave protocol (375 mg/m2 weekly for 4 weeks). Mic Altamirano MD Problem List - Problems (1) Lung infiltrate Code(s): R91.8 - OTHER NONSPECIFIC ABNORMAL FINDING OF LUNG FIELD
[2018-04-16] MEDS: ALBUTEROL SO4 2.5/IPRATROPIUM 0.5 INH SOL 3 ML VIAL.NEB. NEB SCH ×4 (07:30→19:27)
[2018-04-16] MEDS: PANTOPRAZOLE 40 MG TABLET (FP) PO SCH (09:28)
[2018-04-16] MEDS: DOCUSATE SODIUM 100 MG CAPSULE (FP) PO SCH ×2 (09:28→21:53)
[2018-04-16] MEDS: methylPREDNISolone NA SUCC 40 MG/1 ML VIAL IVPUSH SCH ×2 (09:28→21:53)
[2018-04-16] MEDS: POLYETHYLENE GLYCOL 3350 119 GM BTL PO SCH ×2 (09:28→21:53)
--- NOTE | 2018-04-16 12:58 | PN ---
Progress Note (short form) - Note Progress Note: PULMONARY APPEARS COMFORTABLE DENIES SOB WANTS TO GO HOME RHEUM CONSULT NOTED GIVEN SEROLOGY LIKELY MPA WITH LUNG/KIDNEY INVOLVEMENT VSS/AFEBRILE ANICTERIC BILATERAL SCATTERED INSP CRACKLES S1S2 BS+ NO EDEMA LABS/MEDS/IMAGES REVIEWED NEEDS PATH/WASHINGS NOTED A/P Bilateral Pulmonary Infiltrates likely MPA Acute Kidney Injury Likely due to above PAH: RSVP 41mmHg Anemia - steroids/will likely require further immunosuppresants - may need vat wedge if tbbx was not done - inhaled bronchodilators - DVT prophylaxis - Incentive Spirometry - Ambulate ad xenia Gaby FERGUSON MD
--- NOTE | 2018-04-16 14:03 | PN ---
Progress Note, Physician History of Present Illness: Pt seen and examined at bedside. She is awake and alert. She denies shortness of breath. - Current Medication List Current Medications: Active Medications Acetaminophen (Tylenol -) 650 mg PO Q6H PRN PRN Reason: FEVER Last Admin: 04/10/18 06:32 Dose: 650 mg Albuterol/Ipratropium (Duoneb -) 1 amp NEB RQID [facility] Last Admin: 04/16/18 11:45 Dose: 1 amp Benzocaine/Menthol (Cepacol Lozenge -) 1 each MM PRN PRN PRN Reason: SORE THROAT Last Admin: 04/08/18 21:56 Dose: 1 each Docusate Sodium (Colace -) 200 mg PO BID [facility] Last Admin: 04/16/18 09:28 Dose: 200 mg Magnesium Citrate (Citroma -) 300 ml PO Q48H PRN PRN Reason: CONSTIPATION Last Admin: 04/12/18 10:00 Dose: 300 ml Methylprednisolone Sodium Succinate (Solu-Medrol -) 40 mg IVPUSH BID [facility] Last Admin: 04/16/18 09:28 Dose: 40 mg Mometasone Furoate (Asmanex 110mcg -) 1 puff IH HS [facility] Last Admin: 04/15/18 21:48 Dose: 1 puff Pantoprazole Sodium (Protonix -) 40 mg PO DAILY [facility] Last Admin: 04/16/18 09:28 Dose: 40 mg Polyethylene Glycol (Miralax (For Daily Use) -) 17 gm PO BID [facility] Last Admin: 04/16/18 09:28 Dose: 17 gm - Objective Vital Signs: Vital Signs Temperature 98.2 F 04/16/18 09:17 Pulse Rate 76 04/16/18 09:17 Respiratory Rate 18 04/16/18 09:17 Blood Pressure 140/88 04/16/18 09:17 O2 Sat by Pulse Oximetry (%) 97 04/16/18 09:18 Constitutional: Yes: Calm Eyes: Yes: Conjunctiva Clear HENT: Yes: Atraumatic Neck: Yes: Supple Cardiovascular: Yes: S1, S2 Respiratory: Yes: CTA Bilaterally Gastrointestinal: Yes: Normal Bowel Sounds, Soft Genitourinary: Yes: WNL Musculoskeletal: Yes: WNL Edema: No Neurological: Yes: Oriented Psychiatric: Yes: Oriented Labs: CBC, BMP 04/14/18 06:55 04/14/18 06:55 INR, PTT INR 1.13 (0.83-1.09) H 04/06/18 11:30 Problem List - Problems (1) Acute kidney injury Code(s): N17.9 - ACUTE KIDNEY FAILURE, UNSPECIFIED (2) Anemia Code(s): D64.9 - ANEMIA, UNSPECIFIED (3) COPD (chronic obstructive pulmonary disease) Code(s): J44.9 - CHRONIC OBSTRUCTIVE PULMONARY DISEASE, UNSPECIFIED (4) HTN (hypertension) Code(s): I10 - ESSENTIAL (PRIMARY) HYPERTENSION (5) Lung infiltrate Code(s): R91.8 - OTHER NONSPECIFIC ABNORMAL FINDING OF LUNG FIELD Assessment/Plan Current Medications Generic Name Dose Route Start Last Admin Trade Name Freq PRN Reason Stop Dose Admin Acetaminophen 650 mg 04/07/18 20:27 04/10/18 06:32 Tylenol - PO 650 mg Q6H PRN Administration FEVER Albuterol/Ipratropium 1 amp 04/07/18 20:00 04/16/18 11:45 Duoneb - NEB 1 amp RQID [facility] Administration Benzocaine/Menthol 1 each 04/07/18 20:27 04/08/18 21:56 Cepacol Lozenge - MM 1 each PRN PRN Administration SORE THROAT Docusate Sodium 200 mg 04/10/18 11:30 04/16/18 09:28 Colace - PO 200 mg BID [facility] Administration Magnesium Citrate 300 ml 04/10/18 11:48 04/12/18 10:00 Citroma - PO 300 ml Q48H PRN Administration CONSTIPATION Methylprednisolone Sodium Succinate 40 mg 04/10/18 22:00 04/16/18 09:28 Solu-Medrol - IVPUSH 40 mg BID [facility] Administration Mometasone Furoate 1 puff 04/07/18 22:00 04/15/18 21:48 Asmanex 110mcg - IH 1 puff HS LALO Administration Pantoprazole Sodium 40 mg 04/08/18 10:00 04/16/18 09:28 Protonix - PO 40 mg DAILY [facility] Administration Polyethylene Glycol 17 gm 04/10/18 11:30 04/16/18 09:28 Miralax (For Daily Use) - PO 17 gm BID [facility]O Administration Impression 1. NANDINI 2. lung lesions 3. weight loss 4. cough 5. HTN 6. positive DERECK 7. probable microscopic polyangiitis Plan - monitor renal function - rheum input appreciated - pt does not want biopsy - she will consider her options - will follow Dr Casanova
[2018-04-16] MEDS ORDERED: SODIUM CHLORIDE NASAL SPRAY 44 ML BOTTLE NS PRN (14:18)
[2018-04-16] MEDS ORDERED: SODIUM CHLORIDE NASAL SPRAY 44 ML BOTTLE NS ONE (14:18)
--- NOTE | 2018-04-16 14:22 | PN ---
Progress Note (short form) - Note Progress Note: c/o nasl congestion / post nasal drip in bed comfortable appreciate rhematology follow up patient defers BX discussed recommendations for tx per Rhematology + panca / + MA / + DERECK c/w vasculitis Vital Signs Period Temp Pulse Resp BP Sys/Devries Pulse Ox Last 24 Hr 98.2 F-98.6 F 72-76 18-19 132-140/68-88 96-97 neck supple heart S1/S2 lungs grossly clear abd soft non tender ext no edema CBC, BMP 04/14/18 06:55 04/14/18 06:55 Microbiology 04/07/18 17:30 Bronchial Washings - Left Upper Lobe AFB Smear Concentration - Final 04/07/18 17:30 Bronchial Washings - Left Upper Lobe Mycobacterial Culture - Preliminary 04/06/18 20:30 Blood - Peripheral Venous Blood Culture - Final NO GROWTH AFTER 5 DAYS INCUBATION 04/06/18 18:30 Blood - Peripheral Venous Blood Culture - Final NO GROWTH AFTER 5 DAYS INCUBATION 04/07/18 17:30 Bronchial Washings - Left Upper Lobe Gram Stain - Final 04/07/18 17:30 Bronchial Washings - Left Upper Lobe Bronchoalveolar Lavage Culture - Final NORMAL RESPIRATORY POLA 04/06/18 22:00 Sputum - Expectorated Gram Stain - Final 04/06/18 22:00 Sputum - Expectorated Sputum Culture - Final NORMAL RESPIRATORY POLA 04/07/18 17:30 Bronchial Washings - Left Upper Lobe JUSTA Preparation - Preliminary 04/07/18 17:30 Bronchial Washings - Left Upper Lobe Fungal Culture - Preliminary 04/06/18 19:02 Urine For Antigen Detection Legionella Antigen - Final 04/06/18 19:02 Urine For Antigen Detection Streptococcus pneumoniae Antigen (M - Final Active Medications Acetaminophen (Tylenol -) 650 mg PO Q6H PRN PRN Reason: FEVER Last Admin: 04/10/18 06:32 Dose: 650 mg Albuterol/Ipratropium (Duoneb -) 1 amp NEB RQID [facility] Last Admin: 04/16/18 11:45 Dose: 1 amp Benzocaine/Menthol (Cepacol Lozenge -) 1 each MM PRN PRN PRN Reason: SORE THROAT Last Admin: 04/08/18 21:56 Dose: 1 each Docusate Sodium (Colace -) 200 mg PO BID [facility] Last Admin: 04/16/18 09:28 Dose: 200 mg Magnesium Citrate (Citroma -) 300 ml PO Q48H PRN PRN Reason: CONSTIPATION Last Admin: 04/12/18 10:00 Dose: 300 ml Methylprednisolone Sodium Succinate (Solu-Medrol -) 40 mg IVPUSH BID [facility] Last Admin: 04/16/18 09:28 Dose: 40 mg Mometasone Furoate (Asmanex 110mcg -) 1 puff IH HS [facility] Last Admin: 04/15/18 21:48 Dose: 1 puff Pantoprazole Sodium (Protonix -) 40 mg PO DAILY [facility] Last Admin: 04/16/18 09:28 Dose: 40 mg Polyethylene Glycol (Miralax (For Daily Use) -) 17 gm PO BID [facility] Last Admin: 04/16/18 09:28 Dose: 17 gm Sodium Chloride ([place] Nasal [place] -) 2 spray NS ONCE ONE Stop: 04/16/18 14:19 Sodium Chloride ([place] Nasal [place] -) 2 spray NS TID PRN PRN Reason: NASAL CONGESTION Assmt / plan # bilateral pulmonary infiltrates continue abx / steroids / PPi / nebulizer s/p bronchoscopy +panca / + DERECK / + MAb / appreciate Rhematology and pulmonary followup # acute on CKD IV fluids work up in progress appreciate nephrology follow up #constipation Miralax / colace enema PRN /citoma PRN # anemia work -up # Nasal congestion O[place] spry Qday nd PRN Problem List - Problems (1) COPD (chronic obstructive pulmonary disease) Code(s): J44.9 - CHRONIC OBSTRUCTIVE PULMONARY DISEASE, UNSPECIFIED (2) Shortness of breath (3) HTN (hypertension) Code(s): I10 - ESSENTIAL (PRIMARY) HYPERTENSION (4) Weight decreased Code(s): R63.4 - ABNORMAL WEIGHT LOSS (5) Anemia Code(s): D64.9 - ANEMIA, UNSPECIFIED (6) Chronic kidney disease Code(s): N18.9 - CHRONIC KIDNEY DISEASE, UNSPECIFIED
[2018-04-16] MEDS: MOMETASONE FUROATE 110 MCG/IH INHALER IH SCH (21:53)
[2018-04-17 07:46] LABS: BASO % 0.2 % (0-2.0); HEMATOCRIT 26.3 % (32.4-45.2); HEMOGLOBIN 8.6 GM/dL (10.7-15.3); LYMPH % 11.2 % (8-40); MCH 29.1 pg (25.7-33.7); MCHC 32.9 g/dl (32.0-36.0); MEAN CELL VOLUME 88.6 fl (80-96); MEAN PLT VOLUME 7.9 fl (7.5-11.1); MONO % 6.1 % (3.8-10.2); NEUT % 82.5 % (42.8-82.8); PLATELET COUNT 305 K/MM3 (134-434); RBC 2.97 M/mm3 (3.60-5.2); RDW 14.9 % (11.6-15.6); WHITE BLOOD COUNT 10.7 K/mm3 (4.0-10.0)
[2018-04-17] MEDS: ALBUTEROL SO4 2.5/IPRATROPIUM 0.5 INH SOL 3 ML VIAL.NEB. NEB SCH (08:11)
[2018-04-17 08:23] LABS: ALBUMIN 2.2 g/dl (3.4-5.0); ALK PHOS 62 U/L (45-117); ANION GAP 7 MMOL/L (8-16); BILIRUBIN,TOTAL 0.4 mg/dL (0.2-1); BLOOD UREA NITROGEN 34 mg/dL (7-18); CALCIUM 7.8 mg/dL (8.5-10.1); CHLORIDE 104 mmol/L (98-107); CO2 30 mmol/L (21-32); CREATININE 1.5 mg/dL (0.55-1.3); GLUCOSE,RANDOM 114 mg/dL (74-106); POTASSIUM 3.9 mmol/L (3.5-5.1); SGOT/AST 13 U/L (15-37); SGPT/ALT 27 U/L (13-61); SODIUM 141 mmol/L (136-145); TOT PROT 5.6 g/dl (6.4-8.2)
--- NOTE | 2018-04-17 10:17 | PN ---
Progress Note (short form) - Note Progress Note: 82 y/o female found alert and oriented x 3. No c/o pain, discomfort or SOB. Vital Signs Period Temp Pulse Resp BP Sys/Devries Pulse Ox Last 24 Hr 97.8 F-98.6 F 67-77 18-18 126-137/64-77 96 CBC, BMP 04/17/18 06:25 04/17/18 06:25 HEENT- Normocephalic Neck- supple Lungs- CTAB Heart- S1/S2 Abd- Soft, nt Ext- No LE edema Active Medications Acetaminophen (Tylenol -) 650 mg PO Q6H PRN PRN Reason: FEVER Last Admin: 04/10/18 06:32 Dose: 650 mg Albuterol/Ipratropium (Duoneb -) 1 amp NEB RQID [facility] Last Admin: 04/17/18 08:11 Dose: 1 amp Benzocaine/Menthol (Cepacol Lozenge -) 1 each MM PRN PRN PRN Reason: SORE THROAT Last Admin: 04/08/18 21:56 Dose: 1 each Docusate Sodium (Colace -) 200 mg PO BID [facility] Last Admin: 04/16/18 21:53 Dose: 200 mg Magnesium Citrate (Citroma -) 300 ml PO Q48H PRN PRN Reason: CONSTIPATION Last Admin: 04/12/18 10:00 Dose: 300 ml Methylprednisolone Sodium Succinate (Solu-Medrol -) 40 mg IVPUSH BID [facility] Last Admin: 04/16/18 21:53 Dose: 40 mg Mometasone Furoate (Asmanex 110mcg -) 1 puff IH HS [facility] Last Admin: 04/16/18 21:53 Dose: 1 puff Pantoprazole Sodium (Protonix -) 40 mg PO DAILY [facility] Last Admin: 04/16/18 09:28 Dose: 40 mg Polyethylene Glycol (Miralax (For Daily Use) -) 17 gm PO BID [facility] Last Admin: 04/16/18 21:53 Dose: 17 gm Sodium Chloride ([place] Nasal [place] -) 2 spray NS TID PRN PRN Reason: NASAL CONGESTION Last Admin: 04/16/18 17:39 Dose: 2 spray Assmt / plan # bilateral pulmonary infiltrates continue steroids / PPI/ nebulizer s/p bronchoscopy +panca / + DERECK / + MAb / # acute on CKD Trend renal work up in progress appreciate nephrology follow up #constipation Miralax / colace # Nasal congestion Improved with [place] spray Problem List - Problems (1) COPD (chronic obstructive pulmonary disease) Code(s): J44.9 - CHRONIC OBSTRUCTIVE PULMONARY DISEASE, UNSPECIFIED (2) Shortness of breath (3) HTN (hypertension) Code(s): I10 - ESSENTIAL (PRIMARY) HYPERTENSION (4) Weight decreased Code(s): R63.4 - ABNORMAL WEIGHT LOSS (5) Anemia Code(s): D64.9 - ANEMIA, UNSPECIFIED (6) Chronic kidney disease Code(s): N18.9 - CHRONIC KIDNEY DISEASE, UNSPECIFIED
[2018-04-17] MEDS ORDERED: PT OWN MED DRAWER 7, Y5N ONE (10:20)
[2018-04-17] MEDS: DOCUSATE SODIUM 100 MG CAPSULE (FP) PO SCH (10:27)
[2018-04-17] MEDS: PANTOPRAZOLE 40 MG TABLET (FP) PO SCH (10:27)
[2018-04-17] MEDS: POLYETHYLENE GLYCOL 3350 119 GM BTL PO SCH (10:27)
[2018-04-17] MEDS: methylPREDNISolone NA SUCC 40 MG/1 ML VIAL IVPUSH SCH (10:27)
[2018-04-17] MEDS ORDERED: SIMETHICONE 80 MG TAB.CHEW (FP) PO PRN (10:45)
--- NOTE | 2018-04-17 12:16 | EKG ---
Test Reason : Blood Pressure : / mmHG Vent. Rate : 069 BPM Atrial Rate : 069 BPM P-R Int : 146 ms QRS Dur : 082 ms QT Int : 392 ms P-R-T Axes : 052 001 029 degrees QTc Int : 420 ms NORMAL SINUS RHYTHM NORMAL ECG WHEN COMPARED WITH ECG OF 05-APR-2018 18:39, NO SIGNIFICANT CHANGE WAS FOUND Confirmed by VASILE LOONEY MD ([id number]) on 04/17/2018 12:15:47 PM Referred By: Confirmed By:VASILE LOONEY MD
--- NOTE | 2018-04-17 13:25 | PN ---
Progress Note, Physician History of Present Illness: pulmonary alert,feeling better,-sob,min cough - Current Medication List Current Medications: Active Medications Acetaminophen (Tylenol -) 650 mg PO Q6H PRN PRN Reason: FEVER Last Admin: 04/10/18 06:32 Dose: 650 mg Benzocaine/Menthol (Cepacol Lozenge -) 1 each MM PRN PRN PRN Reason: SORE THROAT Last Admin: 04/08/18 21:56 Dose: 1 each Docusate Sodium (Colace -) 200 mg PO BID [facility] Last Admin: 04/17/18 10:27 Dose: 200 mg Magnesium Citrate (Citroma -) 300 ml PO Q48H PRN PRN Reason: CONSTIPATION Last Admin: 04/12/18 10:00 Dose: 300 ml Methylprednisolone Sodium Succinate (Solu-Medrol -) 40 mg IVPUSH BID [facility] Last Admin: 04/17/18 10:27 Dose: 40 mg Mometasone Furoate (Asmanex 110mcg -) 1 puff IH HS [facility] Last Admin: 04/16/18 21:53 Dose: 1 puff Pantoprazole Sodium (Protonix -) 40 mg PO DAILY [facility] Last Admin: 04/17/18 10:27 Dose: 40 mg Polyethylene Glycol (Miralax (For Daily Use) -) 17 gm PO BID [facility] Last Admin: 04/17/18 10:27 Dose: 17 gm Simethicone (Mylicon -) 80 mg PO Q4H PRN PRN Reason: Gas Sodium Chloride ([place] Nasal [place] -) 2 spray NS TID PRN PRN Reason: NASAL CONGESTION Last Admin: 04/16/18 17:39 Dose: 2 spray - Objective Vital Signs: Vital Signs Temperature 98.3 F 04/17/18 09:00 Pulse Rate 75 04/17/18 09:00 Respiratory Rate 18 04/17/18 09:00 Blood Pressure 129/72 04/17/18 09:00 O2 Sat by Pulse Oximetry (%) 95 04/17/18 09:00 Constitutional: Yes: Well Nourished, Calm Eyes: Yes: WNL HENT: Yes: WNL Neck: Yes: WNL Cardiovascular: Yes: Regular Rate and Rhythm, S1, S2 Respiratory: Yes: CTA Bilaterally Gastrointestinal: Yes: Normal Bowel Sounds, Soft Extremities: Yes: WNL Edema: No Labs: CBC, BMP 04/17/18 06:25 04/17/18 06:25 INR, PTT INR 1.13 (0.83-1.09) H 04/06/18 11:30 Laboratory Tests 04/07/18 07:30 DERECK Screen Positive H DERECK Homogeneous Pattern 1:160 H p-ANCA 1:160 H Myeloperoxidase Ab 25.3 H Problem List - Problems (1) Acute kidney injury Code(s): N17.9 - ACUTE KIDNEY FAILURE, UNSPECIFIED (2) Anemia Code(s): D64.9 - ANEMIA, UNSPECIFIED (3) COPD (chronic obstructive pulmonary disease) Code(s): J44.9 - CHRONIC OBSTRUCTIVE PULMONARY DISEASE, UNSPECIFIED (4) HTN (hypertension) Code(s): I10 - ESSENTIAL (PRIMARY) HYPERTENSION (5) Weight decreased Code(s): R63.4 - ABNORMAL WEIGHT LOSS (6) Vasculitis Code(s): I77.6 - ARTERITIS, UNSPECIFIED (7) Microscopic polyangiitis Code(s): M31.7 - MICROSCOPIC POLYANGIITIS Assessment/Plan IMP BILATERAL INFILTRATES VASCULITIS MICROSCOPIC POLYANGITIS NANDINI IMPROVING ANEMIA PLAN STEROIDS RITUXAN PER RHEUMATOLOY INHALED BRONCHODILATORS IVF MONITOR LYTES,RENAL FUNCTION,CBC O2 PT REFUSES VAT CHEST CT DR CORNELL Problem List - Problems (1) Acute kidney injury Code(s): N17.9 - ACUTE KIDNEY FAILURE, UNSPECIFIED (2) Anemia Code(s): D64.9 - ANEMIA, UNSPECIFIED (3) COPD (chronic obstructive pulmonary disease) Code(s): J44.9 - CHRONIC OBSTRUCTIVE PULMONARY DISEASE, UNSPECIFIED (4) HTN (hypertension) Code(s): I10 - ESSENTIAL (PRIMARY) HYPERTENSION (5) Weight decreased Code(s): R63.4 - ABNORMAL WEIGHT LOSS
--- NOTE | 2018-04-17 13:28 | PN ---
Progress Note (short form) - Note Progress Note: The patient is feeling well. She denies SOB, chest pain, skin trash or arthralgia. On the PE Lungs few basal crackles. no active joints. AFB from bronchoscopy was negative. Biopsy negative for diagnosis. As per discussion with Dr. Nair, Jocelyne and Alexus will start Rituximab, 375 mg/M2 per dose X 4. The medication cannot be started today, therefore we will discharge the patient, and set up treatment as outpatient treatment. Contuinue with Prednisone 60 mg/d. Hepatitis B serology and Quantiferon. Problem List - Problems (1) Lung infiltrate Code(s): R91.8 - OTHER NONSPECIFIC ABNORMAL FINDING OF LUNG FIELD
--- NOTE | 2018-04-17 14:22 | DS ---
Physical Examination Vital Signs: Vital Signs Temperature 98.3 F 04/17/18 09:00 Pulse Rate 75 04/17/18 09:00 Respiratory Rate 18 04/17/18 09:00 Blood Pressure 129/72 04/17/18 09:00 O2 Sat by Pulse Oximetry (%) 95 04/17/18 09:00 Findings/Remarks: The patient is an 82 year old female with a history of HTN who presents for evaluation of shortness of breath and cough. The patient reports a 1 month history of worsening shortness of breath with an associated non-productive cough. She states that she had been having a low grade fever and intermittent night sweats as well as a 15 pound weight loss. The patient had a recent chest ct at an OSH 1 week ago, but never received the results. She was being evaluated by her marketing coordinator Dr. Vaughan who sent the patient in for admission and further work up given her persistent symptoms. She otherwise denied chills , chest pain, nausea, vomiting, abdominal pain, or changes with urination or bowel movements. She was admitted and underwent Bronchoscopy / and evaluation by Rheumatology. She was treated with steroids and inhalers upon admission and tapered during hospital stay - lab and bronchoscopy results indicative of autoimmune process. During hospital stay patient reports feeling well,and shortness of breath improved. She has remained afebrile. On the physical examination she is not in distress, lungs clear and no significant findings. Laboratory work-up revealed p-ANCA 1:160 and myeloperoxidase 25.3, DERECK 1:160 with homogeneous pattern Complement was normal (C3: 126, C4: 25 and CH50 47). Negative for M spike. Creatinine improving (1.3, on admission 2.3) and no changes in urinalysis (protein 1+ and blood 2+). Bronchial washing negative for AFB. 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 It is important to have a positive biopsy before starting immunosuppressive medications, ideally from the lung, or otherwise kidney Bx, however the patient is reluctant to have a lung wedge bx. Even though she is improving with steroids, without additional medications she has a high mortality risk. Discussion with patient -- plan of care agreed on -- no bx ( invasive tx) but agrees to Infusion. To complete work up quantifieron will be done as out patient, preferably obtaining results prior to infusion. Patient understands plan of care. Constitutional: Yes: Well Nourished, No Distress, Calm Eyes: Yes: Conjunctiva Clear, EOM Intact HENT: Yes: Atraumatic, Normocephalic Neck: Yes: Supple, Trachea Midline Cardiovascular: Yes: Regular Rate and Rhythm Respiratory: Yes: Regular, CTA Bilaterally Gastrointestinal: Yes: Normal Bowel Sounds, Soft ...Rectal Exam: Yes: Deferred Renal/: Yes: WNL Breast(s): Yes: WNL Musculoskeletal: Yes: WNL Extremities: Yes: WNL Edema: No Peripheral Pulses WNL: Yes Integumentary: Yes: WNL Wound/Incision: Yes: Well Approximated Neurological: Yes: Alert, Oriented ...Motor Strength: WNL Psychiatric: Yes: Alert, Oriented Labs: CBC, BMP 04/17/18 06:25 04/17/18 06:25 Discharge Summary Reason For Visit: SOB Current Active Problems Acute kidney injury (Acute) Anemia (Acute) COPD (chronic obstructive pulmonary disease) (Acute) Chronic kidney disease (Acute) HTN (hypertension) (Acute) Lung infiltrate (Acute) Microscopic polyangiitis (Acute) Shortness of breath (Acute) Vasculitis (Acute) Weight decreased (Acute) Condition: Stable - Instructions Diet, Activity, Other Instructions: patient to follow up with Rheumatology this week Arrangements for infusion to be made at that time will need Insurance authorization Referrals: Singh Zapata [Primary Care Provider] - Disposition: HOME - Home Medications Comprehensive Discharge Medication List: Ambulatory Orders Albuterol 2.5/Ipratropium 0.5 [Duoneb -] 1 amp NEB RQID amp 04/14/18 Docusate Sodium [Colace -] 200 mg PO BID 30 Days #60 capsule 04/14/18 Mometasone Furoate [Asmanex 110Mcg -] 1 puff IH HS inhaler 04/14/18 Pantoprazole Sodium [Protonix -] 40 mg PO DAILY tablet.ec 04/14/18 Prednisone [Deltasone] 60 mg PO DAILY 30 Days #90 tablet 04/14/18 Magnesium Citrate [Citroma -] 300 ml PO Q48H PRN bottle 04/17/18 Polyethylene Glycol 3350 [Miralax 119 gm Btl -] 17 gm PO BID bottle 04/17/18 Simethicone [Mylicon -] 80 mg PO Q4H PRN tab.chew 04/17/18 Sodium Chloride Nasal [place] [[place] Nasal [place] -] 2 spray NS TID PRN spray 04/17/18 predniSONE [Deltasone -] 60 mg PO DAILY 30 Days #30 tablet 04/17/18
--- NOTE | 2018-04-17 15:20 | PN ---
Progress Note (short form) - Note Progress Note: s: sob resolved no chest pain, palps, dizziness, lightheadedness Current Medications Generic Name Dose Route Start Last Admin Trade Name Freq PRN Reason Stop Dose Admin Acetaminophen 650 mg 04/07/18 20:27 04/10/18 06:32 Tylenol - PO 650 mg Q6H PRN Administration FEVER Benzocaine/Menthol 1 each 04/07/18 20:27 04/08/18 21:56 Cepacol Lozenge - MM 1 each PRN PRN Administration SORE THROAT Docusate Sodium 200 mg 04/10/18 11:30 04/17/18 10:27 Colace - PO 200 mg BID [facility] Administration Magnesium Citrate 300 ml 04/10/18 11:48 04/12/18 10:00 Citroma - PO 300 ml Q48H PRN Administration CONSTIPATION Mometasone Furoate 1 puff 04/07/18 22:00 04/16/18 21:53 Asmanex 110mcg - IH 1 puff HS LALO Administration Pantoprazole Sodium 40 mg 04/08/18 10:00 04/17/18 10:27 Protonix - PO 40 mg DAILY [facility] Administration Polyethylene Glycol 17 gm 04/10/18 11:30 04/17/18 10:27 Miralax (For Daily Use) - PO 17 gm BID [facility] Administration Prednisone 60 mg 04/18/18 10:00 Deltasone - PO DAILY [facility] Simethicone 80 mg 04/17/18 10:45 Mylicon - PO Q4H PRN Gas Sodium Chloride 2 spray 04/16/18 14:18 04/16/18 17:39 [place] Nasal [place] - NS 2 spray TID PRN Administration NASAL CONGESTION Vital Signs: Vital Signs Period Temp Pulse Resp BP Sys/Devries Pulse Ox Last 24 Hr 97.8 F-98.6 F 67-77 18-18 126-137/64-77 95-96 nad no jvd rrr ss2 no mrg cta bl nl eff aaox3 no le e/c/c no jaundice diaphoresis CBC, BMP 04/17/18 06:25 04/17/18 06:25 EKG: sinus rhythm, no ischemic changes echo 03/2018 nl LV/RV function, mild pulm HTN RVSP [address] chest multifocal jean-pierre upper and lower lung opacities likely infectious/ inflammatory infiltrates. mild jean-pierre lower lobe and min to mild jean-pierre upper lobe bronchiectasis with associated mild bronchial wall thickening Assessment/Plan 82F h/o HTN, COPD p/w shortness of breath, cough shortness of breath, cough - trop neg x 2, BNP not diagnostic of HF - less likely cardiac etiology, ?ILD - pulm, ID, rheum following - improved now - nl LV function on echo COPD - manage per pulm HTN - stable BP not on meds, monitor NANDINI - unclear baseline, cr improved - nephrology consulted cardiac rodarte stable
[2018-04-17 15:41] VITALS: BP 136/77; PULSE 70; TEMP 98.8
--- NOTE | 2018-04-17 16:21 | PN ---
Progress Note, Physician History of Present Illness: Pt seen and examined at bedside. She denies shortness of breath. She denies hematuria. - Current Medication List Current Medications: Active Medications Acetaminophen (Tylenol -) 650 mg PO Q6H PRN PRN Reason: FEVER Last Admin: 04/10/18 06:32 Dose: 650 mg Benzocaine/Menthol (Cepacol Lozenge -) 1 each MM PRN PRN PRN Reason: SORE THROAT Last Admin: 04/08/18 21:56 Dose: 1 each Docusate Sodium (Colace -) 200 mg PO BID LALO Last Admin: 04/17/18 10:27 Dose: 200 mg Magnesium Citrate (Citroma -) 300 ml PO Q48H PRN PRN Reason: CONSTIPATION Last Admin: 04/12/18 10:00 Dose: 300 ml Mometasone Furoate (Asmanex 110mcg -) 1 puff IH HS [facility] Last Admin: 04/16/18 21:53 Dose: 1 puff Pantoprazole Sodium (Protonix -) 40 mg PO DAILY [facility] Last Admin: 04/17/18 10:27 Dose: 40 mg Polyethylene Glycol (Miralax (For Daily Use) -) 17 gm PO BID [facility] Last Admin: 04/17/18 10:27 Dose: 17 gm Prednisone (Deltasone -) 60 mg PO DAILY [facility] Simethicone (Mylicon -) 80 mg PO Q4H PRN PRN Reason: Gas Sodium Chloride ([place] Nasal Marina -) 2 spray NS TID PRN PRN Reason: NASAL CONGESTION Last Admin: 04/16/18 17:39 Dose: 2 spray - Objective Vital Signs: Vital Signs Temperature 98.8 F 04/17/18 14:39 Pulse Rate 70 04/17/18 14:39 Respiratory Rate 20 04/17/18 14:39 Blood Pressure 136/77 04/17/18 14:39 O2 Sat by Pulse Oximetry (%) 95 04/17/18 09:00 Constitutional: Yes: Calm Eyes: Yes: Conjunctiva Clear HENT: Yes: Atraumatic Neck: Yes: Supple Cardiovascular: Yes: S1, S2 Respiratory: Yes: CTA Bilaterally Gastrointestinal: Yes: Soft Genitourinary: Yes: WNL Musculoskeletal: Yes: WNL Edema: No Neurological: Yes: Oriented Psychiatric: Yes: Oriented Labs: CBC, BMP 04/17/18 06:25 12/31/18 06:25 INR, PTT INR 1.13 (0.83-1.09) H 04/06/18 11:30 Problem List - Problems (1) Acute kidney injury Code(s): N17.9 - ACUTE KIDNEY FAILURE, UNSPECIFIED (2) Anemia Code(s): D64.9 - ANEMIA, UNSPECIFIED (3) COPD (chronic obstructive pulmonary disease) Code(s): J44.9 - CHRONIC OBSTRUCTIVE PULMONARY DISEASE, UNSPECIFIED (4) HTN (hypertension) Code(s): I10 - ESSENTIAL (PRIMARY) HYPERTENSION (5) Lung infiltrate Code(s): R91.8 - OTHER NONSPECIFIC ABNORMAL FINDING OF LUNG FIELD Assessment/Plan Current Medications Generic Name Dose Route Start Last Admin Trade Name Freq PRN Reason Stop Dose Admin Acetaminophen 650 mg 04/07/18 20:27 04/10/18 06:32 Tylenol - PO 650 mg Q6H PRN Administration FEVER Benzocaine/Menthol 1 each 04/07/18 20:27 04/08/18 21:56 Cepacol Lozenge - MM 1 each PRN PRN Administration SORE THROAT Docusate Sodium 200 mg 04/10/18 11:30 04/17/18 10:27 Colace - PO 200 mg BID LALO Administration Magnesium Citrate 300 ml 04/10/18 11:48 04/12/18 10:00 Citroma - PO 300 ml Q48H PRN Administration CONSTIPATION Mometasone Furoate 1 puff 04/07/18 22:00 04/16/18 21:53 Asmanex 110mcg - IH 1 puff HS LALO Administration Pantoprazole Sodium 40 mg 04/08/18 10:00 04/17/18 10:27 Protonix - PO 40 mg DAILY LALO Administration Polyethylene Glycol 17 gm 04/10/18 11:30 04/17/18 10:27 Miralax (For Daily Use) - PO 17 gm BID LALO Administration Prednisone 60 mg 04/18/18 10:00 Deltasone - PO DAILY LALO Simethicone 80 mg 04/17/18 10:45 Mylicon - PO Q4H PRN Gas Sodium Chloride 2 spray 04/16/18 14:18 04/16/18 17:39 Combes Marina Nasal Marina - NS 2 spray TID PRN Administration NASAL CONGESTION Laboratory Tests 04/07/18 04/07/18 07:30 12:36 Hep Bs Antigen Negative Hep Bs Antibody Non reactive Hep B Core Total Ab Negative TB Test (QFT) Nil 0.02 TB Test (QFT) Mitogen 0.02 TB Test (QFT) Antigen 0.02 Impression 1. NANDINI 2. lung lesions 3. weight loss 4. cough 5. HTN 6. positive DERECK 7. probable microscopic polyangiitis Plan - rheum input appreciated, discussed with rheum - pt will start treatment as outpt - will follow in office - pt instructed to avoid nsaids - discussed renal failure symptoms to be aware of - will follow Dr Casanova
[2018-04-18 02:10] LABS: HBsAG SCREEN Negative (Negative); HEP B CORE AB, TOT Negative (Negative)
[2018-04-18] MEDS ORDERED: predniSONE 20 MG TABLET (UD) PO SCH (10:00)
--- NOTE | 2018-04-24 15:11 | PATH ---
Surgical Pathology Report Patient Name: TAM RUSHING [facility]. Rec. #: [id number] /Age/Gender: 1935 (Age: 82) / F Account: [id number] Location: [address] [place] [address]/[facility] Taken: 04/07/2018 Received: 04/10/2018 Reported: 04/24/2018 Physicians: Austin Douglas M.D. Crystal Nair MD Specimen(s) Received LUNG BIOPSY FROM LEFT UPPER AND RIGHT LOWER LOBE Clinical History Interstitial lung disease Final Diagnosis LUNG, COLLINS AND RLL BIOPSIES ORGANIZING PNEUMONIA, MILD INTERSTITIAL FIBROSIS AND ASSOCIATED REACTIVE PNEUMOCYTE HYPERPLASIA. NO VIRAL CYTOPATHIC CHANGES, GRANULOMAS OR MALIGNANCY ARE SEEN. Note The findings are non-specific in the setting of a small biopsy and must be correlated in the context of the clinical and radiographic findings. Case sent for consultation to Dr. Palak Gavin MD from [facility], [place], [place], the diagnosis above reflects her opinion. Electronically Signed Sarah Weinberg M.D. Gross Description Received in formalin labeled "lung biopsy from left upper and right lower lobe" are multiple irregular fragments of white-cuevas to pink-cuevas soft tissue ranging in size from 0.1-0.3, measuring 0.5 x 0.5 x 0.1 cm in aggregate MLSZ/04/10/2018 sanml/04/10/2018
== END 2018-04-17 16:50 | disposition home or self-care (01) | DRG 546 ==
LOC: JER 18:29 → JERBED 22:20 → UNDOADMOB 04-06 → J5S 04-06 04:11 → OBSVTOIN 04-06 10:19
PROVIDERS: ADMIT Family Medicine; ATTEND Family Medicine
PROC: 0BJ08ZZ Inspection of Tracheobronchial Tree, Via Natural or Artificial Opening Endoscopic (ICD-10-PCS; principal; 2018-04-07 15:30)
DX: M31.7 Microscopic polyangiitis (principal); N17.9 Acute kidney failure, unspecified; Z88.0 Allergy status to penicillin; D64.9 Anemia, unspecified; N18.9 Chronic kidney disease, unspecified; R63.4 Abnormal weight loss; R91.8 Other nonspecific abnormal finding of lung field; I12.9 Hypertensive chronic kidney disease with stage 1 through stage 4 chronic kidney disease, or unspecified chronic kidney disease; K59.00 Constipation, unspecified
CPT/HCPCS: 36415; 71045-TC-FY; 71250-TC; 76775-TC; 76856-TC; 80048; 80053; 81003; 81015; 82436; 82570; 82784; 82803; 83516; 83520; 83605; 83735; 83880; 84133; 84155; 84165; 84300; 84484; 85025; 85027; 85610; 85651; 86038; 86140; 86157; 86160; 86162; 86225; 86235; 86256; 86334; 86480; 86704; 86706; 86708; 87040; 87070; 87102; 87116; 87205; 87206; 87210; 87340; 87389; 87522; 87899; 88108; 88305-TC; 93005; 93010; 93306-TC; 94010; 94640; 94760; 94761; 97116-GP; 97161-GP; 99284-25; G0378; J7030

== ENCOUNTER 2018-05-29 08:44 | Day surgery (SDC) | payer OTHER, BC ==
[2018-05-29] MEDS ORDERED: ACETAMINOPHEN 500 MG TABLET (FP) PO ONE (10:00)
[2018-05-29] MEDS ORDERED: diphenhydrAMINE HCL 25 MG CAPSULE (FP) PO ONE (10:00)
[2018-05-29] MEDS ORDERED: methylPREDNISolone NA SUCC 125 MG/2 ML VIAL IVPUSH ONE (10:00)
[2018-05-29] MEDS ORDERED: WATER IVPB ONE (10:30)
[2018-05-29] MEDS ORDERED: DEXTROSE 5% IVPB ONE (10:30)
[2018-05-29] MEDS ORDERED: RITUXIMAB IVPB ONE (10:30)
[2018-05-29 15:52] VITALS: TEMP 97.5
[2018-05-29] MEDS ORDERED: PORTA CATH FLUSH 10 ML IVPUSH ONE (15:52)
[2018-05-29 15:54] VITALS: BP 123/74; PULSE 78
== END 2018-05-29 14:45 | disposition home or self-care (01) ==
LOC: JCHEMO 08:44 → J7W 09:01 → JCHEMO 14:45
PROVIDERS: ATTEND Internal Medicine Rheumatology
DX: M31.7 Microscopic polyangiitis (principal)
CPT/HCPCS: 96375; 96413; 96415; J9312

== ENCOUNTER 2018-06-12 09:40 | Day surgery (SDC) | payer OTHER, BC ==
[2018-06-12] MEDS ORDERED: methylPREDNISolone NA SUCC 125 MG/2 ML VIAL IVPB ONE (10:45)
[2018-06-12] MEDS ORDERED: diphenhydrAMINE HCL 25 MG CAPSULE (FP) PO ONE (10:45)
[2018-06-12] MEDS ORDERED: ACETAMINOPHEN 500 MG TABLET (FP) PO ONE (10:45)
[2018-06-12] MEDS ORDERED: DEXTROSE 5% IVPB ONE (11:30)
[2018-06-12] MEDS ORDERED: WATER IVPB ONE (11:30)
[2018-06-12] MEDS ORDERED: RITUXIMAB IVPB ONE (11:30)
[2018-06-12 17:13] VITALS: TEMP 98
[2018-06-12 17:14] VITALS: BP 115/75; PULSE 67
== END 2018-06-12 16:15 | disposition home or self-care (01) ==
LOC: JCHEMO 09:40 → J7W 09:41 → JCHEMO 16:15
PROVIDERS: ATTEND Internal Medicine Rheumatology
DX: M31.7 Microscopic polyangiitis (principal)
CPT/HCPCS: 96367; 96375; 96413; 96415; J9312

== ENCOUNTER 2018-12-15 09:02 | Day surgery (SDC) | payer OTHER, BC ==
[~2018-12-15 09:02] MED LIST: ACETAMINOPHEN 500 MG TABLET (FP) PO ONE; DEXTROSE 5% IVPB ONE; RITUXIMAB IVPB ONE; WATER IVPB ONE; diphenhydrAMINE HCL 25 MG CAPSULE (FP) PO ONE; methylPREDNISolone NA SUCC 125 MG/2 ML VIAL IVPUSH ONE
[2018-12-15 09:50] LABS: BASO % 1.4 % (0-2.0); EOS % 5.4 % (0-4.5); HEMATOCRIT 38.3 % (32.4-45.2); HEMOGLOBIN 12.7 GM/dL (10.7-15.3); LYMPH % 23.3 % (8-40); MCH 29.9 pg (25.7-33.7); MCHC 33.1 g/dl (32.0-36.0); MEAN CELL VOLUME 90.4 fl (80-96); MEAN PLT VOLUME 9.6 fl (7.5-11.1); MONO % 11.7 % (3.8-10.2); NEUT % 58.2 % (42.8-82.8); PLATELET COUNT 259 K/MM3 (134-434); RBC 4.24 M/mm3 (3.60-5.2); RDW 14.1 % (11.6-15.6); WHITE BLOOD COUNT 7.5 K/mm3 (4.0-10.0)
[2018-12-15 10:26] LABS: ALBUMIN 3.4 g/dl (3.4-5.0); BILIRUBIN,TOTAL 0.8 mg/dL (0.2-1); BLOOD UREA NITROGEN 22.2 mg/dL (7-18); CALCIUM 9.3 mg/dL (8.5-10.1); CREATININE 1.4 mg/dL (0.55-1.3); MAGNESIUM 2.5 mg/dL (1.8-2.4); POTASSIUM 3.1 mmol/L (3.5-5.1); PREALBUMIN 25.5 mg/dl (20-40); TOT PROT 6.8 g/dl (6.4-8.2)
[2018-12-15] MEDS ORDERED: diphenhydrAMINE HCL 25 MG CAPSULE (FP) PO ONE (10:45)
[2018-12-15] MEDS ORDERED: ACETAMINOPHEN 500 MG TABLET (FP) PO ONE ×2 (10:45)
[2018-12-15] MEDS ORDERED: methylPREDNISolone NA SUCC 125 MG/2 ML VIAL IVPUSH ONE (10:45)
[2018-12-15] MEDS ORDERED: POTASSIUM CHLORIDE TABS 20 MEQ TABLET.ER (FP) PO ONE (11:00)
[2018-12-15] MEDS ORDERED: DEXTROSE 5% IVPB ONE (11:30)
[2018-12-15] MEDS ORDERED: WATER IVPB ONE (11:30)
[2018-12-15] MEDS ORDERED: RITUXIMAB IVPB ONE (11:30)
[2018-12-15 14:23] VITALS: TEMP 97.3
[2018-12-15 14:24] VITALS: BP 132/73; PULSE 71
== END 2018-12-15 14:47 | disposition home or self-care (01) ==
LOC: JCHEMO 09:02 → J7W 09:05 → JCHEMO 14:47
PROVIDERS: ATTEND Internal Medicine Rheumatology
PROC: 3E03305 Introduction of Other Antineoplastic into Peripheral Vein, Percutaneous Approach (ICD-10-PCS; principal; 2018-12-15)
PROC: 3E0333Z Introduction of Anti-inflammatory into Peripheral Vein, Percutaneous Approach (ICD-10-PCS; 2018-12-15)
DX: Z51.11 Encounter for antineoplastic chemotherapy (principal); M31.7 Microscopic polyangiitis
CPT/HCPCS: 36415; 80053; 83735; 84134; 85025; 96375; 96413; 96415; J9312

== ENCOUNTER 2019-12-13 08:08 | Day surgery (SDC) | payer OTHER, BC ==
[2019-12-13 09:28] LABS: HEMATOCRIT 39.2 % (32.4-45.2); HEMOGLOBIN 13.1 GM/dL (10.7-15.3); MCH 30.9 pg (25.7-33.7); MCHC 33.4 g/dl (32.0-36.0); MEAN CELL VOLUME 92.7 fl (80-96); MEAN PLT VOLUME 9.6 fl (7.5-11.1); PLATELET COUNT 213 K/MM3 (134-434); RBC 4.23 M/mm3 (3.60-5.2); RDW 14.5 % (11.6-15.6); WHITE BLOOD COUNT 7.1 K/mm3 (4.0-10.0)
[2019-12-13] MEDS ORDERED: methylPREDNISolone NA SUCC 125 MG/2 ML VIAL IVPUSH ONE (10:00)
[2019-12-13] MEDS ORDERED: ACETAMINOPHEN 500 MG TABLET (FP) PO ONE (10:00)
[2019-12-13] MEDS ORDERED: diphenhydrAMINE HCL 25 MG CAPSULE (FP) PO ONE (10:00)
[2019-12-13 10:25] LABS: ALBUMIN 2.7 g/dl (3.4-5.0); BILIRUBIN,TOTAL 1.3 mg/dL (0.2-1); BLOOD UREA NITROGEN 14.2 mg/dL (7-18); TOT PROT 5.3 g/dl (6.4-8.2)
[2019-12-13] MEDS ORDERED: WATER IVPB ONE ×2 (10:30)
[2019-12-13] MEDS ORDERED: DEXTROSE 5% IVPB ONE ×2 (10:30)
[2019-12-13] MEDS ORDERED: RITUXIMAB IVPB ONE ×2 (10:30)
[2019-12-13 11:36] LABS: CALCIUM 6.7 mg/dL (8.5-10.1); POTASSIUM 2.6 mmol/L (3.5-5.1)
[2019-12-13 13:02] LABS: ALBUMIN 3.9 g/dl (3.4-5.0); BILIRUBIN,TOTAL 1.1 mg/dL (0.2-1); BLOOD UREA NITROGEN 16.3 mg/dL (7-18); CALCIUM 8.5 mg/dL (8.5-10.1); CREATININE 1.2 mg/dL (0.55-1.3); POTASSIUM 3.3 mmol/L (3.5-5.1); TOT PROT 7.3 g/dl (6.4-8.2)
[2019-12-13 17:19] VITALS: TEMP 98.2
[2019-12-13 17:21] VITALS: BP 121/67; PULSE 63
== END 2019-12-13 13:30 | disposition home or self-care (01) ==
LOC: JCHEMO 08:08
PROVIDERS: ATTEND Internal Medicine Rheumatology
PROC: 3E03305 Introduction of Other Antineoplastic into Peripheral Vein, Percutaneous Approach (ICD-10-PCS; principal; 2019-12-13)
PROC: 3E0333Z Introduction of Anti-inflammatory into Peripheral Vein, Percutaneous Approach (ICD-10-PCS; 2019-12-13)
DX: Z51.11 Encounter for antineoplastic chemotherapy (principal); M31.7 Microscopic polyangiitis
CPT/HCPCS: 36415; 80053; 85027; 96367; 96413; 96415; J9312

== ENCOUNTER 2020-09-05 08:33 | Day surgery (SDC) | payer OTHER ==
[2020-09-05 08:56] LABS: BASO % 1.1 % (0-2.0); EOS % 3.4 % (0-4.5); HEMATOCRIT 41.6 % (32.4-45.2); HEMOGLOBIN 13.9 GM/dL (10.7-15.3); LYMPH % 29.2 % (8-40); MCH 30.5 pg (25.7-33.7); MCHC 33.5 g/dl (32.0-36.0); MEAN CELL VOLUME 91.1 fl (80-96); MEAN PLT VOLUME 9.6 fl (7.5-11.1); MONO % 9.8 % (3.8-10.2); NEUT % 56.5 % (42.8-82.8); PLATELET COUNT 226 K/MM3 (134-434); RBC 4.56 M/mm3 (3.60-5.2)
[2020-09-05] MEDS ORDERED: diphenhydrAMINE HCL 25 MG CAPSULE (FP) PO ONE (09:00)
[2020-09-05] MEDS ORDERED: methylPREDNISolone NA SUCC 125 MG/2 ML VIAL IVPB ONE (09:00)
[2020-09-05] MEDS ORDERED: ACETAMINOPHEN 500 MG TABLET (FP) PO ONE (09:00)
[2020-09-05 09:15] LABS: ALBUMIN 3.8 g/dl (3.4-5.0); BLOOD UREA NITROGEN 23.1 mg/dL (7-18); CALCIUM 8.9 mg/dL (8.5-10.1)
[2020-09-05 09:18] LABS: CREATININE 1.6 mg/dL (0.55-1.3)
[2020-09-05 09:20] LABS: BILIRUBIN,TOTAL 0.7 mg/dL (0.2-1)
[2020-09-05] MEDS ORDERED: DEXTROSE 5% IVPB ONE (10:00)
[2020-09-05] MEDS ORDERED: WATER IVPB ONE (10:00)
[2020-09-05] MEDS ORDERED: RITUXIMAB ABBS IVPB ONE (10:00)
[2020-09-05 15:35] VITALS: PULSE 63; TEMP 97.7
[2020-09-05 15:48] VITALS: BP 123/71
== END 2020-09-05 14:00 | disposition home or self-care (01) ==
LOC: JCHEMO 08:33
PROVIDERS: ATTEND Internal Medicine Rheumatology
DX: M31.7 Microscopic polyangiitis (principal); M81.0 Age-related osteoporosis without current pathological fracture
CPT/HCPCS: 36415; 80053; 85025; 96367; 96413; 96415; Q5115

== ENCOUNTER 2021-12-15 10:37 | Emergency (ER) | payer OTHER ==
[2021-12-15 10:45] VITALS: BP 130/79; PULSE 79; RESP 18; TEMP 97.8; BMI 21.9
[2021-12-15 12:10] LABS: BASO % 0.7 % (0-2.0); EOS % 2.6 % (0-4.5); HEMATOCRIT 40.5 % (32.4-45.2); HEMOGLOBIN 13.2 GM/dL (10.7-15.3); LYMPH % 22.7 % (8-40); MCH 29.7 pg (25.7-33.7); MCHC 32.6 g/dl (32.0-36.0); MEAN PLT VOLUME 9.1 fl (7.5-11.1); MONO % 9.9 % (3.8-10.2); NEUT % 64.1 % (42.8-82.8); PLATELET COUNT 326 10^3/uL (134-434); RBC 4.45 M/mm3 (3.60-5.2); RDW 14.1 % (11.6-15.6); WHITE BLOOD COUNT 6.1 K/mm3 (4.0-10.0)
[2021-12-15 12:51] LABS: ALBUMIN 3.7 g/dl (3.4-5.0); BILIRUBIN,TOTAL 0.7 mg/dL (0.2-1); BLOOD UREA NITROGEN 19.3 mg/dL (7-18); CALCIUM 8.9 mg/dL (8.5-10.1); CREATININE 1.2 mg/dL (0.55-1.3); TOT PROT 7.5 g/dl (6.4-8.2)
== END 2021-12-15 13:12 | disposition home or self-care (01) ==
LOC: JERFT 10:37
DX: R21 Rash and other nonspecific skin eruption (principal)
CPT/HCPCS: 36415; 80053; 85025; 99283-25